=== PATIENT | female | born 1935 | race Caucasian/White ===

== ENCOUNTER 2018-08-08 10:08 | Emergency (ER) | payer MEDICARE, BC ==
[2018-08-08] MEDS ORDERED: IPRATROPIUM-ALBUTEROL 3 ML NEB INHALATION STA (10:53)
--- NOTE | 2018-08-08 10:54 | ED ---
General Adult HPI - General Chief complaint: Shortness of Breath Stated complaint: PRINCE COLMENARES Time Seen by Provider: 08/08/18 10:39 Source: patient Mode of arrival: wheelchair Limitations: no limitations - History of Present Illness Initial comments: Dictation was produced using [employer] dictation software. please excuse any grammatical, word or spelling errors. Chief Complaint: 83-year-old female past medical history diabetes, dyslipidemia , thyroid disorder, unspecified congenital cardiac disease presents with difficulty breathing. History of Present Illness: Patient is a 83-year-old female presents chief complaint of difficulty in breathing. She states that she has been coughing and has been short of breath for the last several weeks. She lives at a facility were one of her neighbors is a nurse. She had that neighbor listened to her lungs. She was told to come to the emergency department by her neighbor because of positive lung auscultatory sounds. Patient denies any history of asthma or COPD. She has seen a probate judge who told her that she had early evidence of congestive heart failure. Patient states that lying flat causes her shortness of breath to acutely worsened. She denies any lower extremity swelling or edema. Patient reports that she sleeps sitting up however this is not secondary to dyspnea but secondary to lower back issues. Patient states she has not had any constitutional symptoms. She does report that she does have a productive cough of clear sputum. She does report having had an ultrasound of her heart and she reports having thing never been told that she has overt congestive heart failure. The ROS documented in this emergency department record has been reviewed and confirmed by me. Those systems with pertinent positive or negative responses have been documented in the HPI. All other systems are other negative and/or noncontributory. PHYSICAL EXAM: General Impression: Alert and oriented x3, not in acute distress HEENT: Normocephalic atraumatic, extra-ocular movements intact, pupils equal and reactive to light bilaterally, mucous membranes moist. Cardiovascular: Heart regular rate and rhythm, S1&S2 audible, no murmurs, rubs or gallops Chest: Bilateral lung wheezing Abdomen: Bowel sounds present, abdomen soft, non-tender, non-distended, no organomegaly Musculoskeletal: Pulses present and equal in all extremities, no peripheral edema, externally rotated bilateral lower extremities Motor: no focal deficits noted Neurological: CN II-XII grossly intact, no focal motor or sensory deficits noted Skin: Intact with no visualized rashes Psych: Normal affect and mood ED course: 83 yOld female with chief complaint of dyspnea for several weeks. She was told to come to the emergency department today by a neighbor who is allegedly a nurse after she was briefly examined by that individual. She is told that she has some crackling and wheezing by that vital signs upon arrival are within acceptable limits. [id number]-[id number] bedside ultrasound does not show any signs of pulmonary edema. Chart review did not show any evaluation by cardiology or echocardiogram.Laboratory evaluation obtained. CBC, coag panel, metabolic panel is unremarkable. Cardiac enzymes negative. BNP peptide is negative. Chest x-ray shows no acute processes. Patient given a DuoNeb treatment and IV steroids. Patient reevaluated after breathing treatment with improvement of symptoms. Patient clinical presentation is consistent with bronchitis. Patient be given prescription for albuterol inhaler, and Zithromax pack. She is advised to follow-up with primary care physician upon discharge. Patient told to return to the emergency Department with any worsening symptoms especially worsening dyspnea, fevers, lethargy. Patient understandable and agreeable to plan. EKG interpretation: Ventricular rate 90, normal sinus rhythm, MD interval 156, QRS 86, QTC 479. No MD prolongation, no QTC prolongation, no ST or T-wave changes noted. Overall, this EKG is unremarkable - Related Data Home Medications Medication Instructions Recorded Confirmed Furosemide [Lasix] 40 mg PO DAILY 01/21/16 08/08/18 Metoprolol Succinate [Toprol XL] 25 mg PO DAILY 01/21/16 08/08/18 Cough Syrup 10 - 20 ml PO DAILY PRN 08/08/18 08/08/18 Levothyroxine Sodium [Synthroid] 150 mcg PO DAILY 08/08/18 08/08/18 traMADol HCL [Ultram] 50 mg PO DAILY 08/08/18 08/08/18 Previous Rx's Medication Instructions Recorded Albuterol Inhaler [Ventolin Hfa 1 - 2 puff INHALATION RT-Q6H PRN 08/08/18 Inhaler] #1 inhaler Azithromycin [Zithromax Z-pack] 0 mg PO DIRECTED #6 tab 08/08/18 Allergies Allergy/AdvReac Type Severity Reaction Status Date / Time aspirin Allergy Unknown Verified 08/08/18 10:34 codeine Allergy Nausea Verified 08/08/18 10:34 latex Allergy Unknown Verified 08/08/18 10:37 meperidine HCl [From Demerol] Allergy Rash/Hives Verified 08/08/18 10:34 morphine Allergy Unknown Verified 08/08/18 10:34 Sulfa (Sulfonamide Allergy Rash/Hives Verified 08/08/18 10:34 Antibiotics) Review of Systems ROS Statement: Those systems with pertinent positive or pertinent negative responses have been documented in the HPI. ROS Other: All systems not noted in ROS Statement are negative. 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 Date of last positivie culture/infection: 2002 MDRO Source:: LEFT FOOT,LEFT SHOULDER, RIGHT HIP Past Surgical History: Appendectomy, Cholecystectomy, Hysterectomy, Joint Replacement, Orthopedic Surgery, Tonsillectomy Additional Past Surgical History / Comment(s): right hip replacement, hysterectomy, cholecystectomy, appendectomy Past Psychological History: No Psychological Hx Reported Smoking Status: Never smoker Past Alcohol Use History: None Reported Past Drug Use History: None Reported - Past Family History Daughter(s) History Unknown: Yes Father Family Medical History: Congestive Heart Failure (CHF), Diabetes Mellitus Additional Family Medical History / Comment(s): obesity General Exam Limitations: no limitations Course Vital Signs 08/08/18 08/08/18 08/08/18 10:10 11:05 11:15 Temperature 97.8 F Pulse Rate 92 85 93 Respiratory 18 Rate Blood Pressure 159/85 O2 Sat by Pulse 95 Oximetry 08/08/18 11:50 Temperature Pulse Rate 90 Respiratory 16 Rate Blood Pressure 137/87 O2 Sat by Pulse 95 Oximetry Medical Decision Making - Lab Data Result diagrams: 08/08/18 10:54 08/08/18 10:54 Lab Results 08/08/18 08/08/18 08/08/18 Range/Units 10:54 10:54 10:54 WBC 8.2 (3.8-10.6) k/uL RBC 5.47 H (3.80-5.40) m/uL Hgb 16.6 H (11.4-16.0) gm/dL Hct 49.6 H (34.0-46.0) % MCV 90.7 (80.0-100.0) fL MCH 30.3 (25.0-35.0) pg MCHC 33.5 (31.0-37.0) g/dL RDW 12.9 (11.5-15.5) % Plt Count 288 (150-450) k/uL Neutrophils % 68 % Lymphocytes % 21 % Monocytes % 6 % Eosinophils % 3 % Basophils % 1 % Neutrophils # 5.6 (1.3-7.7) k/uL Lymphocytes # 1.7 (1.0-4.8) k/uL Monocytes # 0.5 (0-1.0) k/uL Eosinophils # 0.2 (0-0.7) k/uL Basophils # 0.1 (0-0.2) k/uL PT 11.0 (9.0-12.0) sec INR 1.0 (<1.2) APTT 26.8 (22.0-30.0) sec Sodium 139 (137-145) mmol/L Potassium 4.4 (3.5-5.1) mmol/L Chloride 102 (98-107) mmol/L Carbon Dioxide 29 (22-30) mmol/L Anion Gap 8 mmol/L BUN 16 (7-17) mg/dL Creatinine 0.54 (0.52-1.04) mg/dL Est GFR (CKD-EPI)AfAm >90 (>60 ml/min/1.73 sqM) Est GFR (CKD-EPI)NonAf 89 (>60 ml/min/1.73 sqM) Glucose 92 (74-99) mg/dL Calcium 9.3 (8.4-10.2) mg/dL Magnesium 1.7 (1.6-2.3) mg/dL Total Bilirubin 0.7 (0.2-1.3) mg/dL AST 39 H (14-36) U/L ALT 47 (9-52) U/L Alkaline Phosphatase 112 (38-126) U/L Troponin I (0.000-0.034) ng/mL NT-Pro-B Natriuret Pep pg/mL Total Protein 6.9 (6.3-8.2) g/dL Albumin 4.1 (3.5-5.0) g/dL 08/08/18 08/08/18 Range/Units 10:54 10:54 WBC (3.8-10.6) k/uL RBC (3.80-5.40) m/uL Hgb (11.4-16.0) gm/dL Hct (34.0-46.0) % MCV (80.0-100.0) fL MCH (25.0-35.0) pg MCHC (31.0-37.0) g/dL RDW (11.5-15.5) % Plt Count (150-450) k/uL Neutrophils % % Lymphocytes % % Monocytes % % Eosinophils % % Basophils % % Neutrophils # (1.3-7.7) k/uL Lymphocytes # (1.0-4.8) k/uL Monocytes # (0-1.0) k/uL Eosinophils # (0-0.7) k/uL Basophils # (0-0.2) k/uL PT (9.0-12.0) sec INR (<1.2) APTT (22.0-30.0) sec Sodium (137-145) mmol/L Potassium (3.5-5.1) mmol/L Chloride (98-107) mmol/L Carbon Dioxide (22-30) mmol/L Anion Gap mmol/L BUN (7-17) mg/dL Creatinine (0.52-1.04) mg/dL Est GFR (CKD-EPI)AfAm (>60 ml/min/1.73 sqM) Est GFR (CKD-EPI)NonAf (>60 ml/min/1.73 sqM) Glucose (74-99) mg/dL Calcium (8.4-10.2) mg/dL Magnesium (1.6-2.3) mg/dL Total Bilirubin (0.2-1.3) mg/dL AST (14-36) U/L ALT (9-52) U/L Alkaline Phosphatase (38-126) U/L Troponin I <0.012 (0.000-0.034) ng/mL NT-Pro-B Natriuret Pep 89 pg/mL Total Protein (6.3-8.2) g/dL Albumin (3.5-5.0) g/dL Disposition Clinical Impression: Bronchitis Disposition: HOME SELF-CARE Condition: Good Instructions (If sedation given, give patient instructions): Acute Bronchitis ( ED) Prescriptions: Albuterol Inhaler [Ventolin Hfa Inhaler] 1 - 2 puff INHALATION RT-Q6H PRN #1 inhaler PRN Reason: Dyspnea Azithromycin [Zithromax Z-pack] 0 mg PO DIRECTED #6 tab Is patient prescribed a controlled substance at d/c from ED?: No When asked, does pt state using other controlled substances?: No Referrals: Brock Molina MD [Primary Care Provider] - 1-2 days Time of Disposition: 12:29
[2018-08-08 11:06] LABS: Basophils # (A) 0.1 k/uL (0-0.2); Basophils % (A) 1 %; Eosinophils # (A) 0.2 k/uL (0-0.7); Eosinophils % (A) 3 %; HCT 49.6 % (34.0-46.0); HGB 16.6 gm/dL (11.4-16.0); Lymphocytes # (A) 1.7 k/uL (1.0-4.8); Lymphocytes % (A) 21 %; MCH 30.3 pg (25.0-35.0); MCHC 33.5 g/dL (31.0-37.0); MCV 90.7 fL (80.0-100.0); Mean Platelet Volume 7.1; Monocytes # (A) 0.5 k/uL (0-1.0); Monocytes % (A) 6 %; Neutrophils # (A) 5.6 k/uL (1.3-7.7); Neutrophils % (A) 68 %; Platelet Count 288 k/uL (150-450); RBC 5.47 m/uL (3.80-5.40); RDW 12.9 % (11.5-15.5); WBC 8.2 k/uL (3.8-10.6)
[2018-08-08 11:14] LABS: ALT 47 U/L (9-52); AST 39 U/L (14-36); Albumin 4.1 g/dL (3.5-5.0); Alkaline Phosphatase 112 U/L (38-126); Anion Gap 8 mmol/L; Blood Urea Nitrogen 16 mg/dL (7-17); Calcium 9.3 mg/dL (8.4-10.2); Carbon Dioxide 29 mmol/L (22-30); Chloride 102 mmol/L (98-107); Glucose 92 mg/dL (74-99); Magnesium 1.7 mg/dL (1.6-2.3); Potassium 4.4 mmol/L (3.5-5.1); Sodium 139 mmol/L (137-145); Total Bilirubin 0.7 mg/dL (0.2-1.3); Total Protein 6.9 g/dL (6.3-8.2)
[2018-08-08 11:17] LABS: Partial Thromboplastin Time 26.8 sec (22.0-30.0)
--- NOTE | 2018-08-08 11:40 | XR ---
EXAMINATION TYPE: XR chest 2V DATE OF EXAM: 08/08/2018 COMPARISON: NONE HISTORY: Difficulty breathing TECHNIQUE: Frontal and lateral views of the chest are obtained. FINDINGS: There is no focal air space opacity, pleural effusion, or pneumothorax seen. The cardiac silhouette size is upper limits of normal. The osseous structures are intact. Destructive changes are seen of the right glenohumeral joint that may be secondary to extensive arthropathy, post infectious , neurogenic in origin, or posttraumatic. Extensive degenerative changes are seen in the left glenohu meral joint. There is an exaggerated thoracic kyphosis. There is diffuse osseous demineralization. IMPRESSION: No acute cardiopulmonary process.
[2018-08-08] MEDS ORDERED: DEXAMETHASONE SOD PHOSPHATE 10 MG/ML 1 ML VIAL IV STA (12:00)
[2018-08-08 12:35] VITALS: BP 155/83; PULSE 99; RESP 18; TEMP 98
== END 2018-08-08 12:53 | disposition home or self-care (01) ==
LOC: EC 10:08
DX: J40 Bronchitis, not specified as acute or chronic (principal); E03.9 Hypothyroidism, unspecified; M19.90 Unspecified osteoarthritis, unspecified site; I50.9 Heart failure, unspecified; Q24.9 Congenital malformation of heart, unspecified; Z86.14 Personal history of Methicillin resistant Staphylococcus aureus infection; Z96.641 Presence of right artificial hip joint; Z82.49 Family history of ischemic heart disease and other diseases of the circulatory system; Z79.890 Hormone replacement therapy; Z79.891 Long term (current) use of opiate analgesic; Z79.899 Other long term (current) drug therapy; Z88.6 Allergy status to analgesic agent; Z88.5 Allergy status to narcotic agent; Z91.040 Latex allergy status; Z88.2 Allergy status to sulfonamides
CPT/HCPCS: 36415; 94640; 93005; 83880; 80053; 83735; 84484; 85025; 85610; 85730; 71046; 99285; 96374; J1100

== ENCOUNTER → 2019-01-06 | Outpatient (CLI) | payer MEDICARE, BC ==
[2019-01-06 11:44] LABS: African American GFR (CKD) >90 (>60 ml/min/1.73 sqM); Blood Urea Nitrogen 20 mg/dL (7-17)
--- NOTE | 2019-01-06 15:28 | CT ---
EXAMINATION TYPE: CT abdomen pelvis w con DATE OF EXAM: 01/06/2019 COMPARISON: HISTORY: Pain, swelling above right thigh. CT DLP: 2036.5 mGycm Automated exposure control for dose reduction was used. TECHNIQUE: Helical acquisition of images from the lung bases through the pelvis have been completed. CONTRAST: Performed with Oral Contrast and with IV Contrast, patient injected with 100 mL of Isovue M300. FINDINGS: There is some calcification at the root of the aorta, mitral annulus, suspect coronary luis ry calcification. There is an umbilical hernia containing fat. LUNG BASES: No significant abnormality is appreciated. Focal subcentimeter area of increased attenuat ion along the anterior fissure likely benign AORTA: No significant abnormality is appreciated. LIVER/GB: The liver shows low attenuation. Patient is post cholecystectomy. Colonic interposition not ed anterior to the lower portion of the liver. PANCREAS: No significant abnormality is seen. SPLEEN: No significant abnormality is seen. ADRENALS: No significant abnormality is seen. KIDNEYS: Cortical cyst associated with the upper pole the right kidney measures approximately 2.7 cm. Small cortical cysts associated with the left kidney. REPRODUCTIVE ORGANS: No significant abnormality is seen BOWEL: Some colonic wall thickening on axial image 23 is indeterminate, scattered diverticular aguirre e is present especially in the sigmoid colon. FREE AIR: No Free Air visible. ASCITES: None visible. PELVIC ADENOPATHY: None visualized. RETROPERITONEAL ADENOPATHY: No Retroperitoneal Adenopathy visible. URINARY BLADDER: No significant abnormality is seen. OSSEOUS STRUCTURES: Marked distortion is present at the left femoral head with osteoarthritic change, there is resorption of the right femoral head, chronic dislocation, abnormal right acetabulum. Degen erative disc changes are present in the visualized spine. Anterolisthesis grade 1 L4-5, L3-4, retroli sthesis grade 1 L5-S1. IMPRESSION: DIVERTICULOSIS, ABDOMINAL WALL HERNIA, CHRONIC DISTORTION OF THE HIPS. DEGENERATIVE DISC DISEASE AND FACET ARTHROPATHY, THERE MAY BE ASSOCIATED SPINAL STENOSIS. POSSIBLE HEPATIC STEATOSIS. POSTOP CHANGE S. FINDINGS IN THE COLON IS DESCRIBED, DIFFICULT TO EXCLUDE A MUCOSAL LESION
== END ==
LOC: RADCTMAIN 11:09
PROVIDERS: ATTEND Family Medicine
DX: K57.90 Diverticulosis of intestine, part unspecified, without perforation or abscess without bleeding (principal); K42.9 Umbilical hernia without obstruction or gangrene; R93.7 Abnormal findings on diagnostic imaging of other parts of musculoskeletal system; R10.9 Unspecified abdominal pain; Z98.890 Other specified postprocedural states
CPT/HCPCS: 82565; 84520; 74177; 36415; Q9967

== ENCOUNTER → 2019-02-13 | Outpatient (CLI) | payer MEDICARE, BC ==
--- NOTE | 2019-02-13 09:58 | XR ---
EXAMINATION TYPE: XR foot complete LT DATE OF EXAM: 02/13/2019 CLINICAL HISTORY: Left foot pain for one week. Injury one week ago. TECHNIQUE: Frontal, lateral, and oblique images of the left foot are obtained. COMPARISON: Left foot x-ray January 21, 2016 FINDINGS: Demineralization is redemonstrated which is noted to lower radiographic sensitivity. Marked hallux valgus positioning first metatarsophalangeal joint. Additional valgus positioning noted second through fourth toes at metatarsophalangeal joints. There is varus positioning distal fifth to e metatarsal phalangeal joint all redemonstrated. Marked flexion in the toes makes evaluation at this level suboptimal. Moderate narrowing first and second metatarsophalangeal joint with mild to moderat e peripheral spurring is redemonstrated. There is pes planus deformity with moderate to severe spurring and narrowing hindfoot and midfoot lev els. Talus bone is destroyed raising concern for Charcot-type arthropathy. Old healed fracture distal fibular diaphysis is present. No acute fracture or dislocation is seen. IMPRESSION: As above. No significant change from prior study
--- NOTE | 2019-02-13 10:38 | XR ---
EXAMINATION TYPE: XR Hip Bilateral and AP pelvis DATE OF EXAM: 02/13/2019 COMPARISON: CT abdomen and pelvis January 06, 2019 HISTORY: Pain after injury one week ago. TECHNIQUE: A single AP view of the pelvis is obtained. Two views of the bilateral hips are obtained. FINDINGS: Demineralization is present. Sacroiliac joints are maintained. Pubic symphysis is intact. T here is chronic deformity and dislocation right hip. Left hip shows evidence of old healed fracture s ubcapital level with advanced degenerative change as there is extensive subchondral cystic change and narrowing. IMPRESSION: As above, no significant change from recent CT. No acute fracture is evident.
== END | disposition home or self-care (01) ==
LOC: RADXRMAIN 09:21
PROVIDERS: ATTEND Physician Assistant
DX: S73.004A Unspecified dislocation of right hip, initial encounter (principal); M16.0 Bilateral primary osteoarthritis of hip; M21.852 Other specified acquired deformities of left thigh; M21.851 Other specified acquired deformities of right thigh
CPT/HCPCS: 73521

== ENCOUNTER → 2019-05-22 | Outpatient (CLI) | payer MEDICARE, BC ==
--- NOTE | 2019-05-22 10:16 | XR ---
EXAMINATION TYPE: XR shoulder complete RT DATE OF EXAM: 05/22/2019 CLINICAL HISTORY: Right shoulder pain TECHNIQUE: Three views of the right shoulder are obtained. COMPARISON: None. FINDINGS: There is no extensive arthropathy of the right shoulder with [id number] articulation and protuberant osteophyte change. There is narrowing of the acromioclavicular interval and coracoacromi al interval. Osteophytes extend into the axillary recess. No gross evidence of acute displaced fractu re. Diffuse osseous demineralization. IMPRESSION: 1. Extensive arthropathy of the right shoulder that may be degenerative, posttraumatic, or postinfect ious. Protuberant osteophytes extend and axillary recess and could create axillary nerve impingement. [id number] articulation is seen in the glenohumeral joint. 2. Diffuse osseous demineralization 3. Mild acromio clavicular arthropathy.
== END | disposition home or self-care (01) ==
LOC: RADXRMAIN 09:35
PROVIDERS: ATTEND Physician Assistant
DX: M19.011 Primary osteoarthritis, right shoulder (principal); M81.8 Other osteoporosis without current pathological fracture

== ENCOUNTER 2020-09-15 11:42 | Inpatient (IN) | payer MEDICARE, BC ==
--- NOTE | 2020-09-15 13:54 | XR ---
EXAMINATION TYPE: XR chest 2V DATE OF EXAM: 09/15/2020 COMPARISON: 08/08/2018 INDICATION: Shortness of breath x1 week TECHNIQUE: Frontal and lateral views of the chest are obtained. FINDINGS: The heart size is normal. There is increased AP thoracic diameter. The pulmonary vasculature is normal. The lungs are clear. Degenerative changes are at the right shoulder IMPRESSION: 1. No acute pulmonary process.
[2020-09-15] MEDS ORDERED: ONDANSETRON 4 MG/2 ML VIAL IVP STA (15:54)
[2020-09-15] MEDS ORDERED: SODIUM CHLORIDE 0.9% 500 ML 500 ML IV STA (15:54)
--- NOTE | 2020-09-15 16:13 | ED ---
Weakness HPI - General Chief complaint: Weakness Stated complaint: covid vaccine reaction, weakness, congestion Source: patient, family Mode of arrival: wheelchair Limitations: no limitations - History of Present Illness Initial comments: Patient is an 85-year-old female with past nuchal history of diabetes, hypertension presents emergency Department with reported generalized weakness and shortness of breath. Patient received her second Covid vaccination on the and states that she became sick afterwards. Reports to weakness, chills and body aches. Patient did have close contacts with similar symptoms which did test positive for Covid. Patient states that she is wheelchair-bound. He had difficulty transferring. Stiff fevers with poor appetite. Admits to nausea. No chest pain. No other alleviating, precipitating or modifying factors - Related Data Home Medications Medication Instructions Recorded Confirmed Metoprolol Succinate [Toprol XL] 25 mg PO DAILY 01/21/16 09/15/20 Cholecalciferol [Vitamin D3 (25 25 mcg PO DAILY 09/15/20 09/15/20 Mcg = 1000 Iu)] Ketoconazole 2% Cream [Nizoral 2%] 1 applic TOPICAL DAILY 09/15/20 09/15/20 Levothyroxine Sodium [Synthroid] 125 mcg PO DAILY 09/15/20 09/15/20 Previous Rx's Medication Instructions Recorded Acetaminophen Tab [Tylenol] 650 mg PO Q6HR PRN #20 tab 09/24/20 Ascorbic Acid [Vitamin C] 500 mg PO BID #20 tab 09/24/20 Benzocaine/Menthol Lozeng [Cepacol 1 each MUCOUS MEM Q4HR PRN #30 09/24/20 lozenge] lozenge Benzonatate [Tessalon Perles] 100 mg PO TID #20 cap 09/24/20 Famotidine [Pepcid] 20 mg PO BID #30 tab 09/24/20 Gabapentin [Neurontin] 100 mg PO TID #9 cap 09/24/20 Losartan [Cozaar] 25 mg PO DAILY #30 tab 09/24/20 Zinc Sulfate [Orazinc] 220 mg PO DAILY 10 Days #10 cap 09/24/20 traMADol HCL [Ultram] 50 mg PO Q6H PRN 3 Days #12 tab 09/24/20 Allergies Allergy/AdvReac Type Severity Reaction Status Date / Time aspirin Allergy Unknown Verified 09/15/20 19:44 codeine Allergy Nausea Verified 09/15/20 19:44 latex Allergy Unknown Verified 09/15/20 19:44 meperidine HCl [From Demerol] Allergy Rash/Hives Verified 09/15/20 19:44 morphine Allergy Unknown Verified 09/15/20 19:44 Nitrate Analogues Allergy Rash/Hives Verified 09/15/20 19:44 Sulfa (Sulfonamide Allergy Rash/Hives Verified 09/15/20 19:44 Antibiotics) tomato Allergy Rash/Hives Verified 09/15/20 19:44 Review of Systems ROS Statement: Those systems with pertinent positive or pertinent negative responses have been documented in the HPI. ROS Other: All systems not noted in ROS Statement are negative. 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 Date of last positivie culture/infection: 2002 MDRO Source:: LEFT FOOT,LEFT SHOULDER, RIGHT HIP Past Surgical History: Appendectomy, Cholecystectomy, Hysterectomy, Joint Replacement, Orthopedic Surgery, Tonsillectomy Additional Past Surgical History / Comment(s): right hip replacement, hysterectomy, cholecystectomy, appendectomy Past Psychological History: No Psychological Hx Reported Smoking Status: Never smoker Past Alcohol Use History: None Reported Past Drug Use History: None Reported - Past Family History Daughter(s) History Unknown: Yes Father Family Medical History: Congestive Heart Failure (CHF), Diabetes Mellitus Additional Family Medical History / Comment(s): obesity General Exam Limitations: no limitations General appearance: alert, in no apparent distress Head exam: Present: atraumatic, normocephalic, normal inspection Eye exam: Present: normal appearance, PERRL, EOMI. Absent: scleral icterus, conjunctival injection, periorbital swelling ENT exam: Present: normal exam, mucous membranes moist Neck exam: Present: normal inspection. Absent: tenderness, meningismus, lymphadenopathy Respiratory exam: Present: normal lung sounds bilaterally, accessory muscle use. Absent: respiratory distress, wheezes, rales, rhonchi, stridor Cardiovascular Exam: Present: regular rate, tachycardia, normal heart sounds. Absent: systolic murmur, diastolic murmur, rubs, gallop, clicks GI/Abdominal exam: Present: soft, normal bowel sounds. Absent: distended, tenderness, guarding, rebound, rigid Extremities exam: Present: normal inspection, full ROM, normal capillary refill. Absent: tenderness, pedal edema, joint swelling, calf tenderness Back exam: Present: normal inspection Neurological exam: Present: alert, oriented X3, CN II-XII intact Psychiatric exam: Present: normal affect, normal mood Skin exam: Present: warm, dry, intact, normal color. Absent: rash Course Vital Signs 09/15/20 09/15/20 09/15/20 12:58 15:15 20:51 Temperature 98.7 F Pulse Rate 104 H 100 Pulse Rate [ 108 H Pulse Oximetery ] Respiratory 22 20 Rate Blood Pressure 143/95 158/86 O2 Sat by Pulse 94 L 96 Oximetry EKG Findings - EKG Comments: EKG Findings:: EKG demonstrates sinus tachycardia with a ventricular rate of 106. ME interval 158. QRS 82. QTC of 462. No acute ST segment elevations or depressions Medical Decision Making - Medical Decision Making Upon arrival the patient is placed into room 8. A thorough history and physical exam is performed. Patient is generally weak with conversational dyspnea. Patient is disheveled, with strong smell of urine. States that she cannot care for herself at home in her weakened state. IV is established and the patient was given a 500 bolus of normal saline followed by 75 mL per hour. She is given Zofran for nausea. Laboratory studies are conducted. Patient does test positive for Covid at this time. Chest x-ray demonstrates no acute cardiopulmonary process. Results are discussed with the patient. She states that she is too weak to go home. She is urinating on herself that she cannot care for herself. I did call discuss the case with Tiffany from [facility] who agree to admit the patient. Patient is currently awaiting a bed on the floor - Lab Data Result diagrams: 09/24/20 08:33 09/24/20 08:33 Lab Results 09/15/20 09/15/20 09/15/20 Range/Units 13:07 15:57 15:57 WBC 4.1 (3.8-10.6) k/uL RBC 5.46 H (3.80-5.40) m/uL Hgb 17.0 H (11.4-16.0) gm/dL Hct 48.9 H (34.0-46.0) % MCV 89.6 (80.0-100.0) fL MCH 31.1 (25.0-35.0) pg MCHC 34.7 (31.0-37.0) g/dL RDW 12.7 (11.5-15.5) % Plt Count 192 (150-450) k/uL MPV 8.1 Neutrophils % 58 % Lymphocytes % 26 % Monocytes % 12 % Eosinophils % 0 % Basophils % 2 % Neutrophils # 2.4 (1.3-7.7) k/uL Lymphocytes # 1.1 (1.0-4.8) k/uL Monocytes # 0.5 (0-1.0) k/uL Eosinophils # 0.0 (0-0.7) k/uL Basophils # 0.1 (0-0.2) k/uL PT 12.5 H (9.0-12.0) sec INR 1.2 H (<1.2) APTT 28.5 (22.0-30.0) sec D-Dimer 0.94 H (<0.60) mg/L FEU Sodium Potassium Chloride Carbon Dioxide Anion Gap BUN Creatinine Est GFR (CKD-EPI)AfAm Est GFR (CKD-EPI)NonAf Glucose (74-99) mg/dL Calcium Magnesium Total Bilirubin AST ALT Alkaline Phosphatase Troponin I (0.000-0.034) ng/mL NT-Pro-B Natriuret Pep pg/mL Total Protein Albumin Urine Color Urine Appearance (Clear) Urine pH (5.0-8.0) Ur Specific [place] (1.001-1.035) Urine Protein (Negative) Urine Glucose (UA) (Negative) Urine Ketones (Negative) Urine Blood (Negative) Urine Nitrite (Negative) Urine Bilirubin (Negative) Urine Urobilinogen (<2.0) mg/dL Ur Leukocyte Esterase (Negative) Urine RBC (0-5) /hpf Urine WBC (0-5) /hpf Ur Squamous Epith Cells (0-4) /hpf Urine Mucus (None) /hpf Coronavirus (PCR) Detected A (Not Detectd) 09/15/20 09/15/20 09/15/20 Range/Units 15:57 15:57 15:57 WBC (3.8-10.6) k/uL RBC (3.80-5.40) m/uL Hgb (11.4-16.0) gm/dL Hct (34.0-46.0) % MCV (80.0-100.0) fL MCH (25.0-35.0) pg MCHC (31.0-37.0) g/dL RDW (11.5-15.5) % Plt Count (150-450) k/uL MPV Neutrophils % % Lymphocytes % % Monocytes % % Eosinophils % % Basophils % % Neutrophils # (1.3-7.7) k/uL Lymphocytes # (1.0-4.8) k/uL Monocytes # (0-1.0) k/uL Eosinophils # (0-0.7) k/uL Basophils # (0-0.2) k/uL PT (9.0-12.0) sec INR (<1.2) APTT (22.0-30.0) sec D-Dimer (<0.60) mg/L FEU Sodium Not Reportable Potassium Not Reportable Chloride Not Reportable Carbon Dioxide Not Reportable Anion Gap Not Reportable BUN Not Reportable Creatinine Not Reportable Est GFR (CKD-EPI)AfAm Not Reportable Est GFR (CKD-EPI)NonAf Not Reportable Glucose (74-99) mg/dL Calcium Not Reportable Magnesium Not Reportable Total Bilirubin Not Reportable AST Not Reportable ALT Not Reportable Alkaline Phosphatase Not Reportable Troponin I <0.012 (0.000-0.034) ng/mL NT-Pro-B Natriuret Pep 188 pg/mL Total Protein Not Reportable Albumin Not Reportable Urine Color Urine Appearance (Clear) Urine pH (5.0-8.0) Ur Specific [place] (1.001-1.035) Urine Protein (Negative) Urine Glucose (UA) (Negative) Urine Ketones (Negative) Urine Blood (Negative) Urine Nitrite (Negative) Urine Bilirubin (Negative) Urine Urobilinogen (<2.0) mg/dL Ur Leukocyte Esterase (Negative) Urine RBC (0-5) /hpf Urine WBC (0-5) /hpf Ur Squamous Epith Cells (0-4) /hpf Urine Mucus (None) /hpf Coronavirus (PCR) (Not Detectd) 09/15/20 09/15/20 09/16/20 Range/Units 18:13 22:32 06:47 WBC 2.6 L (3.8-10.6) k/uL RBC 5.32 (3.80-5.40) m/uL Hgb 16.6 H (11.4-16.0) gm/dL Hct 48.2 H (34.0-46.0) % MCV 90.7 (80.0-100.0) fL MCH 31.3 (25.0-35.0) pg MCHC 34.5 (31.0-37.0) g/dL RDW 12.8 (11.5-15.5) % Plt Count 165 (150-450) k/uL MPV 7.4 Neutrophils % 62 % Lymphocytes % 33 % Monocytes % 3 % Eosinophils % 0 % Basophils % 0 % Neutrophils # 1.6 (1.3-7.7) k/uL Lymphocytes # 0.8 L (1.0-4.8) k/uL Monocytes # 0.1 (0-1.0) k/uL Eosinophils # 0.0 (0-0.7) k/uL Basophils # 0.0 (0-0.2) k/uL PT (9.0-12.0) sec INR (<1.2) APTT (22.0-30.0) sec D-Dimer (<0.60) mg/L FEU Sodium 135 L Potassium 3.8 Chloride 96 L Carbon Dioxide 30 Anion Gap 9 BUN 15 Creatinine 0.55 Est GFR (CKD-EPI)AfAm >90 Est GFR (CKD-EPI)NonAf 87 Glucose 102 H (74-99) mg/dL Calcium 8.9 Magnesium 1.7 Total Bilirubin 0.6 AST 33 ALT 21 Alkaline Phosphatase 95 Troponin I (0.000-0.034) ng/mL NT-Pro-B Natriuret Pep pg/mL Total Protein 6.4 Albumin 3.9 Urine Color Yellow Urine Appearance Cloudy H (Clear) Urine pH 5.5 (5.0-8.0) Ur Specific [place] 1.021 (1.001-1.035) Urine Protein 1+ H (Negative) Urine Glucose (UA) Negative (Negative) Urine Ketones Trace H (Negative) Urine Blood Trace H (Negative) Urine Nitrite Negative (Negative) Urine Bilirubin Negative (Negative) Urine Urobilinogen <2.0 (<2.0) mg/dL Ur Leukocyte Esterase Negative (Negative) Urine RBC 2 (0-5) /hpf Urine WBC 1 (0-5) /hpf Ur Squamous Epith Cells 1 (0-4) /hpf Urine Mucus Occasional H (None) /hpf Coronavirus (PCR) (Not Detectd) 09/16/20 Range/Units 06:47 WBC (3.8-10.6) k/uL RBC (3.80-5.40) m/uL Hgb (11.4-16.0) gm/dL Hct (34.0-46.0) % MCV (80.0-100.0) fL MCH (25.0-35.0) pg MCHC (31.0-37.0) g/dL RDW (11.5-15.5) % Plt Count (150-450) k/uL MPV Neutrophils % % Lymphocytes % % Monocytes % % Eosinophils % % Basophils % % Neutrophils # (1.3-7.7) k/uL Lymphocytes # (1.0-4.8) k/uL Monocytes # (0-1.0) k/uL Eosinophils # (0-0.7) k/uL Basophils # (0-0.2) k/uL PT (9.0-12.0) sec INR (<1.2) APTT (22.0-30.0) sec D-Dimer (<0.60) mg/L FEU Sodium 135 L Potassium 4.0 Chloride 97 L Carbon Dioxide 30 Anion Gap 8 BUN 15 Creatinine 0.59 Est GFR (CKD-EPI)AfAm >90 Est GFR (CKD-EPI)NonAf 85 Glucose 172 H (74-99) mg/dL Calcium 8.3 L Magnesium Total Bilirubin AST ALT Alkaline Phosphatase Troponin I (0.000-0.034) ng/mL NT-Pro-B Natriuret Pep pg/mL Total Protein Albumin Urine Color Urine Appearance (Clear) Urine pH (5.0-8.0) Ur Specific [place] (1.001-1.035) Urine Protein (Negative) Urine Glucose (UA) (Negative) Urine Ketones (Negative) Urine Blood (Negative) Urine Nitrite (Negative) Urine Bilirubin (Negative) Urine Urobilinogen (<2.0) mg/dL Ur Leukocyte Esterase (Negative) Urine RBC (0-5) /hpf Urine WBC (0-5) /hpf Ur Squamous Epith Cells (0-4) /hpf Urine Mucus (None) /hpf Coronavirus (PCR) (Not Detectd) Disposition Clinical Impression: Weakness, COVID-19, Tachycardia Disposition: ADMITTED IP TO THIS HOSP Condition: Stable Is patient prescribed a controlled substance at d/c from ED?: No Decision to Admit Reason: Admit from EC Decision Date: 09/15/20 Decision Time: 19:45
[2020-09-15 16:14] LABS: Basophils # (A) 0.1 k/uL (0-0.2); Basophils % (A) 2 %; Eosinophils % (A) 0 %; HCT 48.9 % (34.0-46.0); Lymphocytes # (A) 1.1 k/uL (1.0-4.8); Lymphocytes % (A) 26 %; MCH 31.1 pg (25.0-35.0); MCHC 34.7 g/dL (31.0-37.0); MCV 89.6 fL (80.0-100.0); Mean Platelet Volume 8.1; Monocytes # (A) 0.5 k/uL (0-1.0); Monocytes % (A) 12 %; Neutrophils # (A) 2.4 k/uL (1.3-7.7); Neutrophils % (A) 58 %; Platelet Count 192 k/uL (150-450); RBC 5.46 m/uL (3.80-5.40); RDW 12.7 % (11.5-15.5); WBC 4.1 k/uL (3.8-10.6)
[2020-09-15 17:04] LABS: INR 1.2 (<1.2); Partial Thromboplastin Time 28.5 sec (22.0-30.0); Prothrombin Time 12.5 sec (9.0-12.0)
[2020-09-15 18:41] LABS: ALT 21 U/L (4-34); AST 33 U/L (14-36); African American GFR (CKD) >90 (>60 ml/min/1.73 sqM); Albumin 3.9 g/dL (3.5-5.0); Alkaline Phosphatase 95 U/L (38-126); Anion Gap 9 mmol/L; Blood Urea Nitrogen 15 mg/dL (7-17); Calcium 8.9 mg/dL (8.4-10.2); Carbon Dioxide 30 mmol/L (22-30); Chloride 96 mmol/L (98-107); Glucose 102 mg/dL (74-99); Magnesium 1.7 mg/dL (1.6-2.3); Non-African American GFR(CKD) 87 (>60 ml/min/1.73 sqM); Potassium 3.8 mmol/L (3.5-5.1); Sodium 135 mmol/L (137-145); Total Bilirubin 0.6 mg/dL (0.2-1.3); Total Protein 6.4 g/dL (6.3-8.2)
[2020-09-15] MEDS ORDERED: NALOXONE 0.4 MG/ML 1 ML VIAL IV PRN (19:45)
[2020-09-15] MEDS ORDERED: ONDANSETRON 4 MG/2 ML VIAL IVP PRN (19:45)
[2020-09-15] MEDS: DEXAMETHASONE SOD PHOSPHATE 10 MG/ML 1 ML VIAL IV SCH (22:21)
[2020-09-15] MEDS: SODIUM CHLORIDE 0.9% 1,000 ML IV SCH (22:21)
[2020-09-15] MEDS: GABAPENTIN 100 MG CAP PO SCH (22:22)
[2020-09-15] MEDS: traMADol 50 MG TAB PO PRN (22:22)
[2020-09-15 22:47] LABS: Appearance,Urine Cloudy (Clear); Bilirubin,Urine Negative (Negative); Blood,Urine Trace (Negative); Color,Urine Yellow; Glucose,Urine (UA) Negative (Negative); Ketones,Urine Trace (Negative); Leukocyte Esterase,Urine Negative (Negative); Mucus,Urine Occasional /hpf; Nitrite,Urine Negative (Negative); PH, Urine 5.5 (5.0-8.0); Protein,Urine 1+ (Negative); RBC,Urine 2 /hpf (0-5); Specific Gravity,Urine 1.021 (1.001-1.035); Squamous Epithelial Cell,Urine 1 /hpf (0-4); Urobilinogen,Urine <2.0 mg/dL (<2.0); WBC,Urine 1 /hpf (0-5)
[2020-09-16] MEDS: ACETAMINOPHEN TAB 325 MG TAB PO PRN ×2 (00:17→21:53)
[2020-09-16 07:29] LABS: Basophils % (A) 0 %; Eosinophils % (A) 0 %; HCT 48.2 % (34.0-46.0); HGB 16.6 gm/dL (11.4-16.0); Lymphocytes # (A) 0.8 k/uL (1.0-4.8); Lymphocytes % (A) 33 %; MCH 31.3 pg (25.0-35.0); MCHC 34.5 g/dL (31.0-37.0); MCV 90.7 fL (80.0-100.0); Mean Platelet Volume 7.4; Monocytes # (A) 0.1 k/uL (0-1.0); Monocytes % (A) 3 %; Neutrophils # (A) 1.6 k/uL (1.3-7.7); Neutrophils % (A) 62 %; Platelet Count 165 k/uL (150-450); RBC 5.32 m/uL (3.80-5.40); RDW 12.8 % (11.5-15.5); WBC 2.6 k/uL (3.8-10.6)
[2020-09-16 08:00] LABS: African American GFR (CKD) >90 (>60 ml/min/1.73 sqM); Anion Gap 8 mmol/L; Blood Urea Nitrogen 15 mg/dL (7-17); Calcium 8.3 mg/dL (8.4-10.2); Carbon Dioxide 30 mmol/L (22-30); Chloride 97 mmol/L (98-107); Glucose 172 mg/dL (74-99); Non-African American GFR(CKD) 85 (>60 ml/min/1.73 sqM); Sodium 135 mmol/L (137-145)
[2020-09-16] MEDS: METOPROLOL SUCCINATE (ER) 25 MG TAB.ER.24H PO SCH (08:17)
[2020-09-16] MEDS: LEVOTHYROXINE 125 MCG TAB PO SCH (08:17)
[2020-09-16] MEDS: CHOLECALCIFEROL 25 MCG (1000 IU) TABLET PO SCH (08:17)
[2020-09-16] MEDS: GABAPENTIN 100 MG CAP PO SCH ×3 (08:17→21:53)
[2020-09-16] MEDS: CLOTRIMAZOLE 1% CREAM 30 GM TUBE TOPICAL SCH (09:53)
--- NOTE | 2020-09-16 12:33 | P.HPIM ---
History of Present Illness 85-year-old female came in with complaints of for generalized weakness and shortness of breath and cough. Patient had first Covid Vaccination and 06 of June. Patient became shortly sick after that patient appears to have been exposed even before her vaccination. Patient has some weakness chills and body aches. 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 Patient had fever here. Patient is found to have Covid 19. Patient is presently on 2 L of oxygen mildly elevated d-dimer of 0.94 patient is presently on Decadron. Fractures disease was consulted. Review of Systems REVIEW OF SYSTEMS: CONSTITUTIONAL: As mentioned in HPI HEENT: No recent visual problems or hearing problems. Denied any sore throat. CARDIOVASCULAR: No chest pain, orthopnea, PND, no palpitations, no syncope. PULMONARY: As mentioned in HPI GASTROINTESTINAL: No diarrhea, no nausea, no vomiting, no abdominal pain. NEUROLOGICAL: No headaches, no weakness, no numbness. HEMATOLOGICAL: Denies any bleeding or petechiae. GENITOURINARY: Denies any burning micturition, frequency, or urgency. MUSCULOSKELETAL/RHEUMATOLOGICAL: Denies any joint pain, swelling, or any muscle pain. ENDOCRINE: Denies any polyuria or polydipsia. The rest of the 14-point review of systems is negative. Past Medical History Past Medical History: Blood Disorder, Heart Failure, Diabetes Mellitus, Hyperlipidemia, Thyroid Disorder Additional Past Medical History / Comment(s): diabetes mellitus, hyperlipidemia, hypothyroidism, osteoarthritis, congestion heart failure, umbilical hernia, Jordana Charcot syndrome History of Any Multi-Drug Resistant Organisms: MRSA Date of last positivie culture/infection: 2002 MDRO Source:: LEFT FOOT,LEFT SHOULDER, RIGHT HIP Past Surgical History: Appendectomy, Cholecystectomy, Hysterectomy, Joint Replacement, Orthopedic Surgery, Tonsillectomy Additional Past Surgical History / Comment(s): right hip replacement, hysterectomy, cholecystectomy, appendectomy Past Anesthesia/Blood Transfusion Reactions: No Reported Reaction Past Psychological History: No Psychological Hx Reported Additional Psychological History / Comment(s): lives independently. Able to around by her powered wheelchair. No tobacco or alcohol use. 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 No experience. No international travel. No animal exposures. Up-to-date on her vaccines Smoking Status: Never smoker Past Alcohol Use History: None Reported Past Drug Use History: None Reported - Past Family History Daughter(s) History Unknown: Yes Father Family Medical History: Congestive Heart Failure (CHF), Diabetes Mellitus Additional Family Medical History / Comment(s): obesity Medications and Allergies Home Medications Medication Instructions Recorded Confirmed Type Metoprolol Succinate [Toprol XL] 25 mg PO DAILY 01/21/16 09/15/20 History traMADol HCL [Ultram] 50 mg PO Q6H PRN 08/08/18 09/15/20 History Cholecalciferol [Vitamin D3 (25 25 mcg PO DAILY 09/15/20 09/15/20 History Mcg = 1000 Iu)] Gabapentin [Neurontin] 100 mg PO TID 09/15/20 09/15/20 History Ketoconazole 2% Cream [Nizoral 2%] 1 applic TOPICAL DAILY 09/15/20 09/15/20 History Levothyroxine Sodium [Synthroid] 125 mcg PO DAILY 09/15/20 09/15/20 History Allergies Allergy/AdvReac Type Severity Reaction Status Date / Time aspirin Allergy Unknown Verified 09/15/20 19:44 codeine Allergy Nausea Verified 09/15/20 19:44 latex Allergy Unknown Verified 09/15/20 19:44 meperidine HCl [From Demerol] Allergy Rash/Hives Verified 09/15/20 19:44 morphine Allergy Unknown Verified 09/15/20 19:44 Nitrate Analogues Allergy Rash/Hives Verified 09/15/20 19:44 Sulfa (Sulfonamide Allergy Rash/Hives Verified 09/15/20 19:44 Antibiotics) tomato Allergy Rash/Hives Verified 09/15/20 19:44 Physical Exam Vitals: Vital Signs Temp Pulse Pulse Resp BP BP Pulse Ox 09/16/20 07:00 97.7 F 72 16 133/82 96 09/16/20 01:45 95 09/16/20 01:38 98.6 F 22 126/75 86 L 09/16/20 00:17 100.3 F H 09/15/20 22:05 110 H 09/15/20 21:37 98.7 F 108 H 22 181/84 93 L 09/15/20 20:51 100 20 158/86 96 09/15/20 15:15 108 H 09/15/20 12:58 98.7 F 104 H 22 143/95 94 L Intake and Output 09/15/20 09/16/20 09/16/20 22:59 06:59 14:59 Other: Voiding Method Bedpan Bedpan # Voids 1 # Bowel Movements 1 Weight 92.986 kg PHYSICAL EXAMINATION: GENERAL: The patient is alert and oriented x3, not in any acute distress. Well developed, well nourished. HEENT: Pupils are round and equally reacting to light. EOMI. No scleral icterus. No conjunctival pallor. Normocephalic, atraumatic. No pharyngeal erythema. No thyromegaly. CARDIOVASCULAR: S1 and S2 present. No murmurs, rubs, or gallops. PULMONARY: Chest is clear to auscultation, no wheezing or crackles. ABDOMEN: Soft, nontender, nondistended, normoactive bowel sounds. No palpable organomegaly. MUSCULOSKELETAL: No joint swelling patient has multiple deformities consistent with rheumatoid arthritis in both hands and also deformities in both foot EXTREMITIES: No cyanosis, clubbing, or pedal edema. NEUROLOGICAL: Gross neurological examination did not reveal any focal deficits. SKIN: No rashes. Results CBC & Chem 7: 09/16/20 06:47 09/16/20 06:47 Labs: Abnormal Lab Results - Last 24 Hours (Table) 09/15/20 09/15/20 09/15/20 Range/Units 13:07 15:57 15:57 WBC (3.8-10.6) k/uL RBC 5.46 H (3.80-5.40) m/uL Hgb 17.0 H (11.4-16.0) gm/dL Hct 48.9 H (34.0-46.0) % Lymphocytes # (1.0-4.8) k/uL PT 12.5 H (9.0-12.0) sec INR 1.2 H (<1.2) D-Dimer 0.94 H (<0.60) mg/L FEU Sodium (137-145) mmol/L Chloride (98-107) mmol/L Glucose (74-99) mg/dL Calcium (8.4-10.2) mg/dL Urine Appearance (Clear) Urine Protein (Negative) Urine Ketones (Negative) Urine Blood (Negative) Urine Mucus (None) /hpf Coronavirus (PCR) Detected A (Not Detectd) 09/15/20 09/15/20 09/16/20 Range/Units 18:13 22:32 06:47 WBC 2.6 L (3.8-10.6) k/uL RBC (3.80-5.40) m/uL Hgb 16.6 H (11.4-16.0) gm/dL Hct 48.2 H (34.0-46.0) % Lymphocytes # 0.8 L (1.0-4.8) k/uL PT (9.0-12.0) sec INR (<1.2) D-Dimer (<0.60) mg/L FEU Sodium 135 L (137-145) mmol/L Chloride 96 L (98-107) mmol/L Glucose 102 H (74-99) mg/dL Calcium (8.4-10.2) mg/dL Urine Appearance Cloudy H (Clear) Urine Protein 1+ H (Negative) Urine Ketones Trace H (Negative) Urine Blood Trace H (Negative) Urine Mucus Occasional H (None) /hpf Coronavirus (PCR) (Not Detectd) 09/16/20 Range/Units 06:47 WBC (3.8-10.6) k/uL RBC (3.80-5.40) m/uL Hgb (11.4-16.0) gm/dL Hct (34.0-46.0) % Lymphocytes # (1.0-4.8) k/uL PT (9.0-12.0) sec INR (<1.2) D-Dimer (<0.60) mg/L FEU Sodium 135 L (137-145) mmol/L Chloride 97 L (98-107) mmol/L Glucose 172 H (74-99) mg/dL Calcium 8.3 L (8.4-10.2) mg/dL Urine Appearance (Clear) Urine Protein (Negative) Urine Ketones (Negative) Urine Blood (Negative) Urine Mucus (None) /hpf Coronavirus (PCR) (Not Detectd) Thrombosis Risk Factor Assmnt - Choose All That Apply Any of the Below Risk Factors Present?: Yes Each Factor Represents 1 point: Obesity (BMI >25) Each Risk Factor Represents 3 Points: Age 75 years or older, History of DVT/PE Thrombosis Risk Factor Assessment Total Risk Factor Score: 7 Thrombosis Risk Factor Assessment Level: High Risk Assessment and Plan Plan: -Covid 19 infection: Patient looks clinically well will monitor the patient for one more night. Patient doesn't have any symptoms will be discharged tomorrow patient chest x-ray is not showing any significant infiltrate. The patient is on steroids because she is requiring 2 L of oxygen -From her arthritis and osteoarthritis -Hyperlipidemia -hyperthyroidism -History of for diabetes mellitus but not on any medications for diabetes patient's blood sugars will be monitored DVT prophylaxis with Lovenox
[2020-09-16] MEDS: ASCORBIC ACID 500 MG TAB PO SCH ×2 (13:23→19:27)
[2020-09-16] MEDS: ENOXAPARIN 40 MG/0.4 ML SYRINGE SQ SCH (13:23)
[2020-09-16] MEDS: ZINC SULFATE 220 MG CAP PO SCH (13:23)
[2020-09-16] MEDS: SODIUM CHLORIDE 0.9% 1,000 ML IV SCH ×2 (13:24→23:39)
[2020-09-16 17:09] LABS: Glucose,Whole Blood 137 mg/dL (75-99)
[2020-09-16] MEDS: INSULIN ASPART (NovoLOG) 100 UNIT/ML VIAL SQ SCH ×2 (17:28→19:43)
[2020-09-16] MEDS: traMADol 50 MG TAB PO PRN ×2 (17:54→23:41)
[2020-09-16] MEDS: DEXAMETHASONE SOD PHOSPHATE 10 MG/ML 1 ML VIAL IV SCH (19:27)
[2020-09-16] MEDS: FAMOTIDINE 20 MG TAB PO SCH (19:27)
[2020-09-16 19:43] LABS: Glucose,Whole Blood 134 mg/dL (75-99)
--- NOTE | 2020-09-16 23:42 | CONS ---
CONSULTATION DATE OF SERVICE: 09/16/2020 REASON FOR CONSULTATION: Covid 19 infection. HISTORY OF PRESENT ILLNESS: The patient is an 85 -year-old female with past medical history significant for diabetes mellitus, hypertension, presented to the ER with chief complaints of increasing shortness of breath and weakness in this patient whose symptoms have been going on since 04 of September when the patient received her second dose of Covid 19 vaccination. Patient complaining of feeling weak, did have generalized body aches and chills which she initially attributed to the Covid vaccine. However, her symptoms did not improve, continued to get worse and started having increased shortness of breath on minimal exertion. The patient is wheelchair bound and has difficulty transferring herself. Did have a low-grade fever and decreased appetite. The patient has been nauseated, but no vomiting. No abdominal pain or diarrhea. With these symptoms, the patient was evaluated by the ER physician. On arrival to the ER, the patient was afebrile. Subsequently did have a low-grade fever of 100.3. The patient did have hypoxemia, O2 saturation 94% on room air, currently 95% on 3 L nasal cannula. The patient did have a normal white count on admission, repeat showing leukopenia as well as lymphopenia. D-dimer was 0.94, creatinine was normal. Liver enzymes are normal and inflammatory markers have not been checked. Urine was negative. Covid PCR came back positive. The patient did have a chest x-ray, no acute pulmonary process. The patient was admitted to the hospital. Infectious disease was consulted for further management. REVIEW OF SYSTEMS: Positive points have been mentioned in HPI. Rest of systems are negative. PAST MEDICAL HISTORY: Diabetes mellitus, hyperlipidemia, hypothyroidism, Jordana Charcot Tooth syndrome, heart failure, osteoarthritis, hypothyroidism, previous history of MRSA right shoulder and right hip infection. PAST SURGICAL HISTORY: Cholecystectomy, hysterectomy, tonsillectomy, right hip replacement. SOCIAL HISTORY: No history of smoking, drinking or drug use. FAMILY HISTORY: Father had congestive heart failure, diabetes mellitus. ALLERGIES: TO MULTIPLE MEDICATIONS as listed in chart. MEDICATIONS: The patient is on Tylenol, vitamin C, vitamin D3, Lotrimin, Decadron, Lovenox, Pepcid, Neurontin, NovoLog, Synthroid, Toprol-XL, Narcan, Zofran, Tramadol, zinc sulfate. PHYSICAL EXAMINATION: Blood pressure 152/78 with a pulse of 73, temperature 98.4, T-max 100.3. She is 95% on 3 L nasal cannula. General description: An elderly female lying in bed in no distress. No tachypnea or accessory muscles of respiration use. HEENT: Examination shows no pallor or scleral icterus. Oral mucous membranes dry. NECK trachea central. No thyromegaly. LUNGS: Unlabored breathing, decreased breath sounds. No wheeze or crackles. HEART S1, S2. Regular rate and rhythm. ABDOMEN soft, no tenderness. No guarding. No rigidity. EXTREMITIES: No edema of the feet. SKIN examination: No rash or mass palpable. NEUROLOGICAL: Patient is awake, alert, oriented x3. Mood and affect normal. LABS: Hemoglobin is 16.8, white count 2.6, BUN of 8, creatinine is 0.59. Inflammatory markers have not been checked. Urine is negative. [place] PCR was positive. Chest x- ray was negative. DIAGNOSTIC IMPRESSION AND PLAN: Patient admitted to the hospital with increasing shortness of breath and weakness in this patient whose symptoms have been going since September 04. The patient did have mild hypoxemia, however chest x-ray negative. More likely indicating mild Covid infection. Unfortunately, patient out of the therapeutic window for Remdesivir. PLAN: 1. Check inflammatory markers. 2. The patient to continue with Lovenox, dexamethasone, zinc and ascorbic acid. 3. Droplet isolation and respiratory support. 4. We will follow up on clinical condition and further adjust medication if needed. Thank you for this consultation. Will follow this patient along with you. MMODL / IJN: [id number] / TIN
[2020-09-17] MEDS: LEVOTHYROXINE 125 MCG TAB PO SCH (06:02)
[2020-09-17] MEDS: traMADol 50 MG TAB PO PRN ×3 (06:02→20:53)
[2020-09-17 06:25] LABS: Glucose,Whole Blood 138 mg/dL (75-99)
[2020-09-17 07:15] LABS: Glucose,Whole Blood 163 mg/dL (75-99)
[2020-09-17 07:47] LABS: Basophils % (A) 0 %; Eosinophils % (A) 0 %; HCT 46.1 % (34.0-46.0); HGB 15.9 gm/dL (11.4-16.0); Lymphocytes # (A) 0.9 k/uL (1.0-4.8); Lymphocytes % (A) 19 %; MCH 31.2 pg (25.0-35.0); MCHC 34.5 g/dL (31.0-37.0); MCV 90.6 fL (80.0-100.0); Mean Platelet Volume 7.7; Monocytes # (A) 0.2 k/uL (0-1.0); Monocytes % (A) 5 %; Neutrophils # (A) 3.5 k/uL (1.3-7.7); Neutrophils % (A) 75 %; Platelet Count 179 k/uL (150-450); RBC 5.09 m/uL (3.80-5.40); RDW 12.7 % (11.5-15.5); WBC 4.7 k/uL (3.8-10.6)
[2020-09-17 07:49] LABS: ALT 20 U/L (4-34); AST 34 U/L (14-36); African American GFR (CKD) >90 (>60 ml/min/1.73 sqM); Albumin 3.3 g/dL (3.5-5.0); Alkaline Phosphatase 86 U/L (38-126); Anion Gap 8 mmol/L; Blood Urea Nitrogen 14 mg/dL (7-17); C Reactive Protein 12.9 mg/L (<10.0); Calcium 8.5 mg/dL (8.4-10.2); Carbon Dioxide 27 mmol/L (22-30); Chloride 100 mmol/L (98-107); Glucose 155 mg/dL (74-99); LDH 461 U/L (313-618); Magnesium 1.7 mg/dL (1.6-2.3); Non-African American GFR(CKD) >90 (>60 ml/min/1.73 sqM); Potassium 4.2 mmol/L (3.5-5.1); Sodium 135 mmol/L (137-145); Total Bilirubin 0.5 mg/dL (0.2-1.3); Total Protein 5.8 g/dL (6.3-8.2)
[2020-09-17] MEDS: INSULIN ASPART (NovoLOG) 100 UNIT/ML VIAL SQ SCH ×4 (08:13→20:54)
[2020-09-17] MEDS: ENOXAPARIN 40 MG/0.4 ML SYRINGE SQ SCH (08:13)
[2020-09-17] MEDS: ZINC SULFATE 220 MG CAP PO SCH (08:14)
[2020-09-17] MEDS: ASCORBIC ACID 500 MG TAB PO SCH ×2 (08:14→20:52)
[2020-09-17] MEDS: FAMOTIDINE 20 MG TAB PO SCH ×2 (08:14→20:52)
[2020-09-17] MEDS: CHOLECALCIFEROL 25 MCG (1000 IU) TABLET PO SCH (08:14)
[2020-09-17] MEDS: CLOTRIMAZOLE 1% CREAM 30 GM TUBE TOPICAL SCH (08:14)
[2020-09-17] MEDS: GABAPENTIN 100 MG CAP PO SCH ×3 (08:14→20:52)
[2020-09-17] MEDS: BENZONATATE 100 MG CAP PO SCH ×3 (08:14→21:00)
[2020-09-17] MEDS: METOPROLOL SUCCINATE (ER) 25 MG TAB.ER.24H PO SCH (08:14)
--- NOTE | 2020-09-17 09:06 | XR ---
EXAMINATION TYPE: XR chest 1V portable DATE OF EXAM: 09/17/2020 Comparison: 09/15/2020 Clinical History: 85-year-old female sob Findings: Heart mildly enlarged. Mild patchy lower lung opacities are unchanged, probably atelectasis. Advanced degenerative changes both shoulders. Atherosclerotic arch calcifications. Impression: Mild cardiomegaly. Some mild patchy lower lung opacities, likely areas of atelectasis. Otherwise, no definite acute process.
--- NOTE | 2020-09-17 09:17 | P.PN ---
Subjective Progress Note Date: 09/17/20 Principal diagnosis: covid 19 infection generalized weakness 85-year-old female was admitted to the hospital for generalized weakness and shortness of breath with associated nonproductive cough patient had extensive diagnostic workup in the emergency department revealing a covid- 19 infection.she has significant medical history of rheumatoid arthritis, charcot yahir tooth, heart failure, diabetes mellitus, hyperlipidemia, thyroid disorder, thyroid disorder, and it inability to ambulate due to debilitating rheumatoid arthritis. Patient was evaluated this a.m. resting comfortably in bed on 2 L of oxygen saturations 92-94%. Patient continues to endorse chills, shortness of breath on exertion, and generalized weakness. Objective - Vital Signs Vital signs: Vital Signs Temp 97.5 F L 09/17/20 03:14 Pulse 61 09/17/20 03:14 Resp 18 09/17/20 03:14 BP 138/68 09/17/20 03:14 Pulse Ox 97 09/17/20 03:14 Intake & Output 09/16/20 09/17/20 09/17/20 18:59 06:59 18:59 Intake Total 300 600 Output Total 700 Balance 300 -100 Intake: IV 600 Sodium Chloride 0.9% 1, 600 000 ml @ 75 mls/hr IV . [id number] DANO Rx#:[id number] Intake, IV Titration 300 Amount Sodium Chloride 0.9% 1, 300 000 ml @ 75 mls/hr IV . [id number] DANO Rx#:[id number] Output: Urine 700 Other: Voiding Method Bedpan - Constitutional General appearance: Present: mild distress - EENT Eyes: Present: EOMI, PERRLA Ears: bilateral: normal - Respiratory Respiratory: bilateral: diminished (anterior and posterior lung amin) - Cardiovascular Details: normal sinus rhythm Heart rate: 67 Rhythm: regular Heart sounds: normal: S1, S2 - Peripheral edema foot Peripheral Edema: bilateral: Trace - Peripheral pulses radial pulse Peripheral Pulses: bilateral: Normal - Gastrointestinal General gastrointestinal: Present: normal bowel sounds, ventral hernia - Integumentary Integumentary: Present: decreased turgor, pale - Neurologic Neurologic: Present: CNII-XII intact - Musculoskeletal Musculoskeletal: Present: generalized weakness - Psychiatric Psychiatric: Present: A&O x's 3, appropriate affect, intact judgment & insight - Allied health notes Allied health notes reviewed: nursing - Labs CBC & Chem 7: 09/17/20 07:14 09/17/20 07:14 Labs: Abnormal Lab Results - Last 24 Hours (Table) 09/16/20 09/16/20 09/17/20 Range/Units 17:08 19:41 06:22 Hct (34.0-46.0) % Lymphocytes # (1.0-4.8) k/uL D-Dimer (<0.60) mg/L FEU Sodium (137-145) mmol/L Creatinine (0.52-1.04) mg/dL Glucose (74-99) mg/dL POC Glucose (mg/dL) 137 H 134 H 138 H (75-99) mg/dL C-Reactive Protein (<10.0) mg/L Total Protein (6.3-8.2) g/dL Albumin (3.5-5.0) g/dL 09/17/20 09/17/20 09/17/20 Range/Units 07:13 07:14 07:14 Hct 46.1 H (34.0-46.0) % Lymphocytes # 0.9 L (1.0-4.8) k/uL D-Dimer 0.71 H (<0.60) mg/L FEU Sodium (137-145) mmol/L Creatinine (0.52-1.04) mg/dL Glucose (74-99) mg/dL POC Glucose (mg/dL) 163 H (75-99) mg/dL C-Reactive Protein (<10.0) mg/L Total Protein (6.3-8.2) g/dL Albumin (3.5-5.0) g/dL 09/17/20 Range/Units 07:14 Hct (34.0-46.0) % Lymphocytes # (1.0-4.8) k/uL D-Dimer (<0.60) mg/L FEU Sodium 135 L (137-145) mmol/L Creatinine 0.45 L (0.52-1.04) mg/dL Glucose 155 H (74-99) mg/dL POC Glucose (mg/dL) (75-99) mg/dL C-Reactive Protein 12.9 H (<10.0) mg/L Total Protein 5.8 L (6.3-8.2) g/dL Albumin 3.3 L (3.5-5.0) g/dL - Imaging and Cardiology Chest x-ray: report reviewed Assessment and Plan Assessment: Covid 19 infectioncontinue coven 19 cocktail Rheumatoid arthritis continue analgesics as needed, and physical therapy Hyperlipidemia continue home medications Hypertension continue home medications diabetes mellitus type 2-continue to monitor blood sugars Hypothyroidismcontinue Continue medical management Hopeful discharge in 24-48 hours Time with Patient: Greater than 30
[2020-09-17] MEDS: SODIUM CHLORIDE 0.9% 1,000 ML IV SCH (10:37)
[2020-09-17] MEDS: ACETAMINOPHEN TAB 325 MG TAB PO PRN (10:37)
[2020-09-17 12:04] LABS: Glucose,Whole Blood 120 mg/dL (75-99)
[2020-09-17 16:51] LABS: Ferritin 282.9 ng/mL (10.0-291.0)
[2020-09-17 17:00] LABS: Glucose,Whole Blood 97 mg/dL (75-99)
--- NOTE | 2020-09-17 19:43 | PN ---
PROGRESS NOTE DATE OF SERVICE: 09/17/2020 REASON FOR FOLLOWUP: COVID-19 infection. INTERVAL HISTORY: The patient is afebrile. The patient mentioned that she is not feeling as good as she was feeling yesterday. Denies having any chest pain, though, or worsening shortness of breath. Cough but no sputum production. No abdominal pain or diarrhea. PHYSICAL EXAMINATION: Blood pressure 144/88 with a pulse of 67, temperature 98.2. She is 93% on 2 L nasal cannula. General description is an elderly female lying in bed in no distress. RESPIRATORY SYSTEM: Unlabored breathing with decreased intensity of breath sounds. No wheeze. HEART: S1, S2. Regular rate and rhythm. ABDOMEN: Soft. No tenderness. EXTREMITIES: No edema of the feet. LABS: Hemoglobin is 15.2, white count 4.7. D-dimer is 0.7. BUN of 14, creatinine 0.45. DIAGNOSTIC IMPRESSION AND PLAN: Patient with acute COVID-19 infection. Patient seems to have clinical improvement, as she is not as hypoxic as she was yesterday. However, the patient herself is not feeling well. We will keep her on dexamethasone, Lovenox, zinc and ascorbic acid, Hep- Lock her IV fluid and reevaluate the patient tomorrow. Continue with supportive care. MMODL / IJN: [id number] /
[2020-09-17 20:42] LABS: Glucose,Whole Blood 95 mg/dL (75-99)
[2020-09-17] MEDS: DEXAMETHASONE SOD PHOSPHATE 10 MG/ML 1 ML VIAL IV SCH (20:53)
[2020-09-18] MEDS: traMADol 50 MG TAB PO PRN ×3 (04:01→21:41)
[2020-09-18] MEDS: LEVOTHYROXINE 125 MCG TAB PO SCH (05:43)
--- NOTE | 2020-09-18 06:48 | P.PN ---
Subjective Progress Note Date: 09/18/20 Principal diagnosis: covid 19 infection generalized weakness Dyspnea 85-year-old female was admitted to the hospital for generalized weakness and shortness of breath with associated nonproductive cough patient had extensive diagnostic workup in the emergency department revealing a covid- 19 infection.she has significant medical history of rheumatoid arthritis, charcot yahir tooth, heart failure, diabetes mellitus, hyperlipidemia, thyroid disorder, thyroid disorder, and it inability to ambulate due to debilitating rheumatoid arthritis. Patient was evaluated this a.m. resting comfortably in bed on 2 L of oxygen saturations 92-94%. Patient continues to endorse chills, shortness of breath on exertion, and generalized weakness. 09/18/2020 Patient resting comfortably in bed, patient continues to endorse chills, shortness of breath, dyspnea on exertion, mid chest discomfort, and generalized weakness. oxygen saturation on 2 L patient is from 93-95%. She continues to be nefit from coven 19 treatments. Patient's been having elevated blood pressure will start Cozaar 50 mg by mouth daily to see response. adding additional albuterol for shortness of breath .Awaiting diagnostic labs this a.m. and urine culture Objective - Vital Signs Vital signs: Vital Signs Temp 97.8 F 09/18/20 03:43 Pulse 71 09/18/20 03:43 Resp 18 09/18/20 03:43 BP 183/91 09/18/20 03:43 Pulse Ox 95 09/18/20 03:43 Intake & Output 09/17/20 09/17/20 09/18/20 06:59 18:59 06:59 Intake Total 600 300 Output Total 700 800 800 Balance -100 -500 -800 Intake: IV 600 Sodium Chloride 0.9% 1, 600 000 ml @ 75 mls/hr IV . [id number] DANO Rx#:[id number] Intake, IV Titration 300 Amount Sodium Chloride 0.9% 1, 300 000 ml @ 75 mls/hr IV . [id number] DANO Rx#:[id number] Output: Urine 700 800 800 Other: Voiding Method Bedpan Bedpan External Catheter External Catheter - Constitutional General appearance: Present: mild distress - EENT Eyes: Present: EOMI, PERRLA Ears: bilateral: normal - Neck Carotids: bilateral: upstroke normal Thyroid: bilateral: normal size - Respiratory Respiratory: bilateral: diminished (Anterior and posterior lung amin) - Cardiovascular Details: Sinus rhythm Heart rate: 82 Rhythm: regular Heart sounds: normal: S1, S2 - Peripheral edema foot Peripheral Edema: bilateral: Trace - Peripheral pulses radial pulse Peripheral Pulses: bilateral: Normal - Gastrointestinal General gastrointestinal: Present: normal bowel sounds, ventral hernia - Integumentary Integumentary: Present: pale - Neurologic Neurologic: Present: CNII-XII intact - Musculoskeletal Musculoskeletal: Present: generalized weakness - Psychiatric Psychiatric: Present: A&O x's 3, appropriate affect, intact judgment & insight - Allied health notes Allied health notes reviewed: nursing - Labs CBC & Chem 7: 09/17/20 07:14 09/17/20 07:14 Labs: Abnormal Lab Results - Last 24 Hours (Table) 09/17/20 09/17/20 09/17/20 Range/Units 07:13 07:14 07:14 Hct 46.1 H (34.0-46.0) % Lymphocytes # 0.9 L (1.0-4.8) k/uL D-Dimer 0.71 H (<0.60) mg/L FEU Sodium (137-145) mmol/L Creatinine (0.52-1.04) mg/dL Glucose (74-99) mg/dL POC Glucose (mg/dL) 163 H (75-99) mg/dL C-Reactive Protein (<10.0) mg/L Total Protein (6.3-8.2) g/dL Albumin (3.5-5.0) g/dL 09/17/20 09/17/20 Range/Units 07:14 12:01 Hct (34.0-46.0) % Lymphocytes # (1.0-4.8) k/uL D-Dimer (<0.60) mg/L FEU Sodium 135 L (137-145) mmol/L Creatinine 0.45 L (0.52-1.04) mg/dL Glucose 155 H (74-99) mg/dL POC Glucose (mg/dL) 120 H (75-99) mg/dL C-Reactive Protein 12.9 H (<10.0) mg/L Total Protein 5.8 L (6.3-8.2) g/dL Albumin 3.3 L (3.5-5.0) g/dL Microbiology - Last 24 Hours (Table) 09/17/20 13:18 Urine Culture - Preliminary Urine,Voided Assessment and Plan Assessment: Covid 19 infectioncontinue covid 19 cocktail Rheumatoid arthritis continue analgesics as needed, and physical therapy Hyperlipidemia continue home medications Hypertension- Starting Cozaar 50 mg by mouth daily diabetes mellitus type 2-continue to monitor blood sugars Hypothyroidismcontinue medications Continue to monitor vital signs and diagnostic labs, awaiting urinary culture Continue medical management Hopeful discharge in 24 hours Time with Patient: Greater than 30
[2020-09-18 07:36] LABS: Glucose,Whole Blood 117 mg/dL (75-99)
[2020-09-18 07:56] LABS: Basophils % (A) 0 %; Eosinophils % (A) 0 %; HCT 46.5 % (34.0-46.0); HGB 16.2 gm/dL (11.4-16.0); Lymphocytes # (A) 0.7 k/uL (1.0-4.8); Lymphocytes % (A) 13 %; MCH 31.5 pg (25.0-35.0); MCHC 34.9 g/dL (31.0-37.0); MCV 90.1 fL (80.0-100.0); Mean Platelet Volume 7.8; Monocytes # (A) 0.4 k/uL (0-1.0); Monocytes % (A) 7 %; Neutrophils # (A) 4.6 k/uL (1.3-7.7); Neutrophils % (A) 79 %; Platelet Count 201 k/uL (150-450); RBC 5.16 m/uL (3.80-5.40); RDW 12.6 % (11.5-15.5); WBC 5.9 k/uL (3.8-10.6)
[2020-09-18] MEDS: INSULIN ASPART (NovoLOG) 100 UNIT/ML VIAL SQ SCH ×4 (07:59→20:40)
[2020-09-18] MEDS: CHOLECALCIFEROL 25 MCG (1000 IU) TABLET PO SCH (08:05)
[2020-09-18] MEDS: FAMOTIDINE 20 MG TAB PO SCH ×2 (08:05→20:40)
[2020-09-18] MEDS: ZINC SULFATE 220 MG CAP PO SCH (08:05)
[2020-09-18] MEDS: ENOXAPARIN 40 MG/0.4 ML SYRINGE SQ SCH (08:06)
[2020-09-18] MEDS: ASCORBIC ACID 500 MG TAB PO SCH ×2 (08:06→20:41)
[2020-09-18] MEDS: METOPROLOL SUCCINATE (ER) 25 MG TAB.ER.24H PO SCH (08:06)
[2020-09-18] MEDS: LOSARTAN 50 MG TAB PO SCH (08:06)
[2020-09-18] MEDS: BENZONATATE 100 MG CAP PO SCH ×3 (08:06→21:41)
[2020-09-18] MEDS: GABAPENTIN 100 MG CAP PO SCH ×3 (08:06→21:41)
[2020-09-18 08:22] LABS: ALT 37 U/L (4-34); AST 54 U/L (14-36); African American GFR (CKD) >90 (>60 ml/min/1.73 sqM); Albumin 3.4 g/dL (3.5-5.0); Alkaline Phosphatase 85 U/L (38-126); Anion Gap 8 mmol/L; Blood Urea Nitrogen 13 mg/dL (7-17); Calcium 8.2 mg/dL (8.4-10.2); Carbon Dioxide 27 mmol/L (22-30); Chloride 100 mmol/L (98-107); Glucose 127 mg/dL (74-99); Magnesium 1.8 mg/dL (1.6-2.3); Non-African American GFR(CKD) >90 (>60 ml/min/1.73 sqM); Potassium 4.1 mmol/L (3.5-5.1); Sodium 135 mmol/L (137-145); Total Bilirubin 0.6 mg/dL (0.2-1.3)
[2020-09-18] MEDS: ALBUTEROL HFA INHALER INHALATION SCH ×4 (08:36→20:13)
[2020-09-18 11:43] LABS: Glucose,Whole Blood 173 mg/dL (75-99)
[2020-09-18] MEDS: CLOTRIMAZOLE 1% CREAM 30 GM TUBE TOPICAL SCH (12:25)
[2020-09-18 16:40] LABS: Glucose,Whole Blood 103 mg/dL (75-99)
[2020-09-18] MEDS: ACETAMINOPHEN TAB 325 MG TAB PO PRN (17:16)
--- NOTE | 2020-09-18 17:19 | PN ---
PROGRESS NOTE DATE OF SERVICE: 09/18/2020 REASON FOR FOLLOWUP: COVID-19 pneumonia. INTERVAL HISTORY: The patient is currently afebrile. The patient mentioned she is feeling slightly better today, able to breathe a little bit easily. Denies having chest pain. She continues to have a cough, but no worsening. No abdominal pain or diarrhea. PHYSICAL EXAMINATION: Blood pressure 146/83, pulse of 73, temperature 97.9. She is 96% on 2 L nasal cannula. General description is an elderly female lying in bed in no distress. RESPIRATORY SYSTEM: Unlabored breathing. Clear to auscultation anteriorly. HEART: S1, S2. Regular rate and rhythm. ABDOMEN: Soft. No tenderness. LABS: Hemoglobin 15.2, white count of 5.9, BUN of 13, creatinine 0.49. DIAGNOSTIC IMPRESSION AND PLAN: Patient with acute COVID-19 infection in this patient who has shown some clinical improvement. She is currently on dexamethasone, Lovenox, zinc and ascorbic acid; to continue, and monitor clinical course closely. Continue supportive care. MMODL / IJN: [id number] /
[2020-09-18 20:24] LABS: Glucose,Whole Blood 112 mg/dL (75-99)
[2020-09-18] MEDS: DEXAMETHASONE SOD PHOSPHATE 10 MG/ML 1 ML VIAL IV SCH (20:41)
[2020-09-19 05:30] LABS: Glucose,Whole Blood 158 mg/dL (75-99)
[2020-09-19] MEDS: traMADol 50 MG TAB PO PRN ×2 (05:44→15:27)
[2020-09-19] MEDS: LEVOTHYROXINE 125 MCG TAB PO SCH (05:45)
--- NOTE | 2020-09-19 07:17 | P.PN ---
Subjective Progress Note Date: 09/19/20 Principal diagnosis: covid 19 infection generalized weakness Dyspnea Urinary tract infection 85-year-old female was admitted to the hospital for generalized weakness and shortness of breath with associated nonproductive cough patient had extensive diagnostic workup in the emergency department revealing a covid- 19 infection.she has significant medical history of rheumatoid arthritis, charcot yahir tooth, heart failure, diabetes mellitus, hyperlipidemia, thyroid disorder, thyroid disorder, and it inability to ambulate due to debilitating rheumatoid arthritis. Patient was evaluated this a.m. resting comfortably in bed on 2 L of oxygen saturations 92-94%. Patient continues to endorse chills, shortness of breath on exertion, and generalized weakness. 09/18/2020 Patient resting comfortably in bed, patient continues to endorse chills, shortness of breath, dyspnea on exertion, mid chest discomfort, and generalized weakness. oxygen saturation on 2 L patient is from 93-95%. She continues to benefit from covid 19 treatments. Patient's been having elevated blood pressure will start Cozaar 50 mg by mouth daily to see response. adding additional albuterol for shortness of breath .Awaiting diagnostic labs this a.m. and urine culture 09/19/2020 Evaluated patient this a.m., resting comfortably in bed. Patient endorses chills, shortness of breath, dyspnea on exertion, dysuria and generalized weakness. she continues to benefit from Covid 19 treatments. Patient's blood pressure is stabilizing with Cozaar 50 mg by mouth daily. Preliminary urinary culture came back gram-negative bacilli-with a count of 50,000 to 100,000due to patient's symptomatic dysuriaand urine cultureRocephin 1 g IV piggyback has been initiated. She states her breathing has improved with albuterol inhaler and use of incentive spirometer. Patient's oxygen saturation 93-95% on 1.5 L. Awaiting on diagnostic labs this a.m. and final chest x-ray reading Objective - Vital Signs Vital signs: Vital Signs Temp 97.3 F L 09/19/20 03:57 Pulse 65 09/19/20 03:57 Resp 20 09/18/20 14:00 BP 159/88 09/19/20 03:57 Pulse Ox 93 L 09/19/20 03:57 Intake & Output 09/18/20 09/19/2009/19/21 18:59 06:59 18:59 Intake Total 240 Output Total 1300 Balance 240 -1300 Intake: Oral 240 Output: Urine 1300 Other: Voiding Method Bedpan Bedpan External Catheter External Catheter # Bowel Movements 1 - Constitutional General appearance: Present: mild distress - EENT Eyes: Present: EOMI, PERRLA Ears: bilateral: normal - Neck Thyroid: bilateral: normal size - Respiratory Respiratory: bilateral: diminished (anterior and posterior ) - Cardiovascular Details: NSR Heart rate: 65 Rhythm: regular Heart sounds: normal: S1, S2 - Peripheral edema leg Peripheral Edema: bilateral: Trace ankle Peripheral Edema: bilateral: Trace foot Peripheral Edema: bilateral: Trace - Peripheral pulses radial pulse Peripheral Pulses: bilateral: Normal dorsalis pedis Peripheral Pulses: bilateral: Diminished - Gastrointestinal General gastrointestinal: Present: normal bowel sounds, ventral hernia - Integumentary Integumentary: Present: pale - Neurologic Neurologic: Present: CNII-XII intact - Musculoskeletal Musculoskeletal: Present: generalized weakness - Psychiatric Psychiatric: Present: A&O x's 3, appropriate affect, intact judgment & insight - Allied health notes Allied health notes reviewed: nursing - Labs CBC & Chem 7: 09/18/20 07:11 09/18/20 07:11 Labs: Abnormal Lab Results - Last 24 Hours (Table) 09/18/20 09/18/20 09/18/20 Range/Units 07:11 07:11 07:25 Hgb 16.2 H (11.4-16.0) gm/dL Hct 46.5 H (34.0-46.0) % Lymphocytes # 0.7 L (1.0-4.8) k/uL Sodium 135 L (137-145) mmol/L Creatinine 0.49 L (0.52-1.04) mg/dL Glucose 127 H (74-99) mg/dL POC Glucose (mg/dL) 117 H (75-99) mg/dL Calcium 8.2 L (8.4-10.2) mg/dL AST 54 H (14-36) U/L ALT 37 H (4-34) U/L Total Protein 6.0 L (6.3-8.2) g/dL Albumin 3.4 L (3.5-5.0) g/dL 0409/18/20 09/18/20 Range/Units 11:40 16:39 20:23 Hgb (11.4-16.0) gm/dL Hct (34.0-46.0) % Lymphocytes # (1.0-4.8) k/uL Sodium (137-145) mmol/L Creatinine (0.52-1.04) mg/dL Glucose (74-99) mg/dL POC Glucose (mg/dL) 173 H 103 H 112 H (75-99) mg/dL Calcium (8.4-10.2) mg/dL AST (14-36) U/L ALT (4-34) U/L Total Protein (6.3-8.2) g/dL Albumin (3.5-5.0) g/dL 09/19/20 Range/Units 05:29 Hgb (11.4-16.0) gm/dL Hct (34.0-46.0) % Lymphocytes # (1.0-4.8) k/uL Sodium (137-145) mmol/L Creatinine (0.52-1.04) mg/dL Glucose (74-99) mg/dL POC Glucose (mg/dL) 158 H (75-99) mg/dL Calcium (8.4-10.2) mg/dL AST (14-36) U/L ALT (4-34) U/L Total Protein (6.3-8.2) g/dL Albumin (3.5-5.0) g/dL Microbiology - Last 24 Hours (Table) 09/17/20 13:18 Urine Culture - Preliminary Urine,Voided Gram Neg Bacilli - Imaging and Cardiology Chest x-ray: image reviewed Assessment and Plan Assessment: Covid 19 infectioncontinue covid 19 cocktail Urine culture positive for gram-negative bacilliRocephin 1 g every 24 hours IV piggyback Rheumatoid arthritis continue analgesics as needed, and physical therapy Hyperlipidemia continue home medications Hypertension- continue Cozaar 50 mg by mouth daily diabetes mellitus type 2-continue to monitor blood sugars Hypothyroidismcontinue medications Continue to monitor vital signs and diagnostic labs, and chest x-ray Continue medical management Hopeful discharge in 24 hours Time with Patient: Greater than 30
[2020-09-19 08:03] LABS: Glucose,Whole Blood 134 mg/dL (75-99)
[2020-09-19] MEDS: ALBUTEROL HFA INHALER INHALATION SCH ×4 (08:08→21:10)
--- NOTE | 2020-09-19 08:37 | XR ---
EXAMINATION TYPE: XR chest 1V portable DATE OF EXAM: 09/19/2020 COMPARISON: Chest x-ray 09/17/2020 HISTORY: Shortness of breath TECHNIQUE: Single frontal view of the chest is obtained. FINDINGS: Patchy basilar density is present in the lungs. Aorta is dense and possibly ectatic. Heart is enlarged. No evident pneumothorax. Marked arthropathy, distortion noted in the right shoulder. No evident effusion. Patient is rotated. There are overlying leads. IMPRESSION: Basilar atelectasis, correlate to exclude pneumonia. Possible cardiomegaly, aortic aneur ysm or ectasia suspected although the patient is rotated. Additional findings above.
[2020-09-19] MEDS: CHOLECALCIFEROL 25 MCG (1000 IU) TABLET PO SCH (09:11)
[2020-09-19] MEDS: ENOXAPARIN 40 MG/0.4 ML SYRINGE SQ SCH (09:11)
[2020-09-19] MEDS: LOSARTAN 50 MG TAB PO SCH (09:11)
[2020-09-19] MEDS: GABAPENTIN 100 MG CAP PO SCH ×3 (09:11→22:11)
[2020-09-19] MEDS: FAMOTIDINE 20 MG TAB PO SCH ×2 (09:11→22:11)
[2020-09-19] MEDS: ASCORBIC ACID 500 MG TAB PO SCH ×2 (09:11→22:11)
[2020-09-19] MEDS: ZINC SULFATE 220 MG CAP PO SCH (09:11)
[2020-09-19] MEDS: INSULIN ASPART (NovoLOG) 100 UNIT/ML VIAL SQ SCH ×4 (09:12→22:14)
[2020-09-19] MEDS: CLOTRIMAZOLE 1% CREAM 30 GM TUBE TOPICAL SCH (09:13)
[2020-09-19] MEDS: BENZONATATE 100 MG CAP PO SCH ×3 (09:31→22:20)
[2020-09-19] MEDS: METOPROLOL SUCCINATE (ER) 25 MG TAB.ER.24H PO SCH (09:31)
[2020-09-19 11:12] LABS: Basophils % (A) 0 %; Eosinophils % (A) 0 %; HCT 46.5 % (34.0-46.0); Lymphocytes # (A) 0.6 k/uL (1.0-4.8); Lymphocytes % (A) 15 %; MCH 31.1 pg (25.0-35.0); MCHC 34.4 g/dL (31.0-37.0); MCV 90.4 fL (80.0-100.0); Mean Platelet Volume 7.9; Monocytes # (A) 0.3 k/uL (0-1.0); Monocytes % (A) 6 %; Neutrophils # (A) 3.2 k/uL (1.3-7.7); Neutrophils % (A) 76 %; Platelet Count 194 k/uL (150-450); RBC 5.14 m/uL (3.80-5.40); RDW 12.6 % (11.5-15.5); WBC 4.2 k/uL (3.8-10.6)
[2020-09-19 11:51] LABS: ALT 38 U/L (4-34); AST 38 U/L (14-36); African American GFR (CKD) >90 (>60 ml/min/1.73 sqM); Albumin 3.3 g/dL (3.5-5.0); Alkaline Phosphatase 89 U/L (38-126); Anion Gap 8 mmol/L; Blood Urea Nitrogen 14 mg/dL (7-17); Calcium 8.9 mg/dL (8.4-10.2); Carbon Dioxide 30 mmol/L (22-30); Chloride 97 mmol/L (98-107); Glucose 155 mg/dL (74-99); LDH 482 U/L (313-618); Magnesium 1.8 mg/dL (1.6-2.3); Non-African American GFR(CKD) >90 (>60 ml/min/1.73 sqM); Sodium 135 mmol/L (137-145); Total Bilirubin 0.4 mg/dL (0.2-1.3); Total Protein 5.8 g/dL (6.3-8.2)
[2020-09-19 12:05] LABS: Glucose,Whole Blood 139 mg/dL (75-99)
[2020-09-19] MEDS ORDERED: hydrALAZINE HCL 20 MG/ML 1 ML VIAL IVP PRN (13:01)
[2020-09-19] MEDS: IOPAMIDOL CONTRAST (ORAL USE) VIAL PO PRN ×2 (15:03→16:00)
[2020-09-19 17:35] LABS: Glucose,Whole Blood 132 mg/dL (75-99)
--- NOTE | 2020-09-19 17:56 | PN ---
PROGRESS NOTE DATE OF SERVICE: 09/19/2020 REASON FOR FOLLOWUP: COVID-19 pneumonia. INTERVAL HISTORY: The patient is currently afebrile, has been complaining of feeling weak, no energy, still complaining of shortness of breath and a cough. No chest pain. No abdominal pain or diarrhea. PHYSICAL EXAMINATION: Blood pressure 113/60 with a pulse of 105, temperature 96.9. She is 98% on 2 L nasal cannula. General description is a middle-aged female lying in bed in no distress. RESPIRATORY SYSTEM: Unlabored breathing. Clear to auscultation anteriorly. HEART: S1, S2. Regular rate and rhythm. ABDOMEN: Soft. No tenderness. LABS: Hemoglobin of 16, white count 4.2, BUN of 14, creatinine 0.43. DIAGNOSTIC IMPRESSION AND PLAN: 1. Patient with COVID-19 infection in this patient who seems to clinically have shown some improvement. She is currently 98% on 2 L cannula, and oxygen can be slowly weaned off. She will be continued on the dexamethasone, Lovenox, zinc and ascorbic acid. Monitor clinical course closely. 2. Patient with urine showing a Gram-negative. However, the UA is negative. Clinically doubt UTI and antibiotics are discouraged. MMODL / IJN: [id number] /
[2020-09-19] MEDS ORDERED: HYDROmorphone 0.5 MG/0.5 ML SYRINGE SQ STA (18:06)
[2020-09-19] MEDS: SODIUM CHLORIDE 0.9% 1,000 ML IV SCH (18:23)
--- NOTE | 2020-09-19 19:37 | CT ---
EXAMINATION TYPE: CT abdomen pelvis w con DATE OF EXAM: 09/19/2020 COMPARISON: 01/06/2019 HISTORY: Acute Respiratory insufficiency, COVID, Tachycardia CT DLP: 2236.5 mGycm Automated exposure control for dose reduction was used. TECHNIQUE: Helical acquisition of images was performed from the lung bases through the pelvis. CONTRAST: Performed with Oral Contrast and with IV Contrast, patient injected with 100 mL of Isovue 3 00. FINDINGS: LUNG BASES: No definite acute findings. LIVER/GB: No significant abnormality is appreciated. PANCREAS: No significant abnormality is seen. SPLEEN: No significant abnormality is seen. ADRENALS: No significant abnormality is seen. KIDNEYS: No significant abnormality is seen. FREE AIR: No free air is visualized. RETROPERITONEAL ADENOPATHY: None visualized REPRODUCTIVE ORGANS: No significant abnormality is seen URINARY BLADDER: No significant abnormality is seen. PELVIC ADENOPATHY: None visualized. OSSEOUS STRUCTURES: No significant abnormality is seen. BOWEL: No significant abnormality is seen. VASCULATURE: No acute findings. ANTERIOR ABDOMINAL WALL MUSCULATURE: There is prominent heterogeneously hyperdense thickening of the left anterior abdominal wall musculature from the subcostal position contiguously down to the level o f the hips. This muscular thickening is smoothly marginated with greatest dimensions of this muscular wall thickening measuring approximately 25 cm CC X 20 cm AP X 9 cm deep. IMPRESSION: LEFT ABDOMINAL WALL MUSCULATURE HEMATOMA MEASURING APPROXIMATELY 25 X 20 X 9 CM.
[2020-09-19] MEDS ORDERED: HYDROmorphone 0.5 MG/0.5 ML SYRINGE IVP PRN (20:18)
[2020-09-19 21:20] LABS: ALT 45 U/L (4-34); AST 48 U/L (14-36); African American GFR (CKD) >90 (>60 ml/min/1.73 sqM); Albumin 3.4 g/dL (3.5-5.0); Alkaline Phosphatase 83 U/L (38-126); Anion Gap 10 mmol/L; Blood Urea Nitrogen 24 mg/dL (7-17); Calcium 9.2 mg/dL (8.4-10.2); Carbon Dioxide 24 mmol/L (22-30); Chloride 99 mmol/L (98-107); Glucose 147 mg/dL (74-99); Non-African American GFR(CKD) 85 (>60 ml/min/1.73 sqM); Potassium 4.1 mmol/L (3.5-5.1); Sodium 133 mmol/L (137-145); Total Bilirubin 0.7 mg/dL (0.2-1.3)
[2020-09-19 21:27] LABS: Basophils # (A) 0.1 k/uL (0-0.2); Basophils % (A) 0 %; Eosinophils # (A) 0.1 k/uL (0-0.7); Eosinophils % (A) 1 %; HCT 43.6 % (34.0-46.0); HGB 15.1 gm/dL (11.4-16.0); Lymphocytes # (A) 1.5 k/uL (1.0-4.8); Lymphocytes % (A) 12 %; MCH 31.5 pg (25.0-35.0); MCHC 34.6 g/dL (31.0-37.0); Mean Platelet Volume 8.6; Monocytes % (A) 8 %; Neutrophils # (A) 9.4 k/uL (1.3-7.7); Neutrophils % (A) 77 %; Platelet Count 285 k/uL (150-450); RBC 4.79 m/uL (3.80-5.40); RDW 12.8 % (11.5-15.5); WBC 12.3 k/uL (3.8-10.6)
[2020-09-19 21:31] LABS: Glucose,Whole Blood 153 mg/dL (75-99)
[2020-09-19 21:56] LABS: Ferritin 266.9 ng/mL (10.0-291.0)
[2020-09-19] MEDS: DEXAMETHASONE SOD PHOSPHATE 10 MG/ML 1 ML VIAL IV SCH (23:43)
[2020-09-20] MEDS ORDERED: SODIUM CHLORIDE 0.9% 500 ML 500 ML IV ONE ×2 (01:44→07:01)
[2020-09-20] MEDS: SODIUM CHLORIDE 0.9% 1,000 ML IV SCH ×2 (02:02→16:15)
[2020-09-20] MEDS: ACETAMINOPHEN TAB 325 MG TAB PO PRN (04:26)
[2020-09-20] MEDS: LEVOTHYROXINE 125 MCG TAB PO SCH (06:19)
[2020-09-20 06:45] LABS: Glucose,Whole Blood 168 mg/dL (75-99)
[2020-09-20] MEDS ORDERED: fentaNYL (PF) 50 MCG/ML 2 ML AMP IVP STA (06:56)
--- NOTE | 2020-09-20 07:18 | P.PN ---
Subjective Progress Note Date: 09/20/20 Principal diagnosis: covid 19 infection generalized weakness Dyspnea Urinary tract infection Left abdominal wall hematoma see dictation from CT abdomen and pelvis for measurements 85-year-old female was admitted to the hospital for generalized weakness and shortness of breath with associated nonproductive cough patient had extensive diagnostic workup in the emergency department revealing a covid- 19 infection.she has significant medical history of rheumatoid arthritis, charcot yahir tooth, heart failure, diabetes mellitus, hyperlipidemia, thyroid disorder, thyroid disorder, and it inability to ambulate due to debilitating rheumatoid arthritis. Patient was evaluated this a.m. resting comfortably in bed on 2 L of oxygen saturations 92-94%. Patient continues to endorse chills, shortness of breath on exertion, and generalized weakness. 09/18/2020 Patient resting comfortably in bed, patient continues to endorse chills, shortness of breath, dyspnea on exertion, mid chest discomfort, and generalized weakness. oxygen saturation on 2 L patient is from 93-95%. She continues to benefit from covid 19 treatments. Patient's been having elevated blood pressure will start Cozaar 50 mg by mouth daily to see response. adding additional albuterol for shortness of breath .Awaiting diagnostic labs this a.m. and urine culture 09/19/2020 Evaluated patient this a.m., resting comfortably in bed. Patient endorses chills, shortness of breath, dyspnea on exertion, dysuria and generalized weakness. she continues to benefit from Covid 19 treatments. Patient's blood pressure is stabilizing with Cozaar 50 mg by mouth daily. Preliminary urinary culture came back gram-negative bacilli-with a count of 50,000 to 100,000due to patient's symptomatic dysuriaand urine cultureRocephin 1 g IV piggyback has been initiated. She states her breathing has improved with albuterol inhaler and use of incentive spirometer. Patient's oxygen saturation 93-95% on 1.5 L. Awaiting on diagnostic labs this a.m. and final chest x-ray reading 09/20/2020 Elevated patient this a.m., patient resting in bed with mild discomfort noted to the abdomen. Patient had CT abdomen and pelvis last night with resulting abdominal wall hematoma. Surgery was consulted for recommendations and tr eatment plan. she had episodes of low blood pressure given normal saline 500 mL bolus and increase rate to 75 ML's per hour. Upon evaluation this a.m. patient's blood pressure still low 90s to 100 systolic another 500 mL bolus to be given. Discontinued blood pressure meds at this time. H&H continue to be stable. Patient's breathing to be unlabored and decreased work of breathingoxygen saturation on 2 L 96%. Discontinue Lovenox due to left abdominal wall hematoma.continue consultation with infectious disease for Covid 19 infection. Awaiting surgical recommendations and treatment plan for her left abdominal wall hematoma. Objective - Vital Signs Vital signs: Vital Signs Temp 96.7 F L 09/20/20 03:38 Pulse 84 09/20/20 03:38 Resp 20 09/20/20 03:38 BP 106/64 09/20/20 03:38 Pulse Ox 94 L 09/20/20 03:38 Intake & Output 09/19/20 09/20/20 09/20/20 18:59 06:59 18:59 Intake Total 240 1325 Output Total 500 Balance 240 825 Intake: Intake, IV Titration 1325 Amount Sodium Chloride 0.9% 1, 825 000 ml @ 75 mls/hr IV . [id number] DANO Rx#:[id number] Sodium Chloride 0.9% 500 500 ml 500 ml @ 999 mls/hr IV .Q31M ONE Rx#:[id number] Oral 240 Output: Urine 500 Other: Voiding Method Bedpan External Catheter External Catheter # Bowel Movements 1 - Constitutional General appearance: Present: mild distress - EENT Eyes: Present: EOMI, PERRLA ENT: Present: normal oropharynx Ears: bilateral: normal - Neck Neck: Present: normal ROM Carotids: bilateral: upstroke normal Thyroid: bilateral: normal size - Respiratory Respiratory: bilateral: CTA (Anterior lung amin), diminished (Posterior lung amin) - Cardiovascular Details: Sinus rhythm Heart rate: 87 Rhythm: regular Heart sounds: normal: S1, S2 - Peripheral pulses dorsalis pedis Peripheral Pulses: bilateral: Normal radial pulse Peripheral Pulses: bilateral: Normal - Gastrointestinal General gastrointestinal: Present: normal bowel sounds, tenderness Localized gastrointestinal: tender: diffuse, mass: LUQ - Integumentary Integumentary: Present: pale - Neurologic Neurologic: Present: CNII-XII intact - Musculoskeletal Musculoskeletal: Present: generalized weakness - Psychiatric Psychiatric: Present: A&O x's 3, appropriate affect, intact judgment & insight - Allied health notes Allied health notes reviewed: nursing - Labs CBC & Chem 7: 09/19/20 20:55 09/19/20 20:55 Labs: Abnormal Lab Results - Last 24 Hours (Table) 09/19/20 09/19/20 09/19/20 Range/Units 07:55 09:48 09:48 WBC (3.8-10.6) k/uL Hct 46.5 H (34.0-46.0) % Neutrophils # (1.3-7.7) k/uL Lymphocytes # 0.6 L (1.0-4.8) k/uL Sodium 135 L (137-145) mmol/L Chloride 97 L (98-107) mmol/L BUN (7-17) mg/dL Creatinine 0.43 L (0.52-1.04) mg/dL Glucose 155 H (74-99) mg/dL POC Glucose (mg/dL) 134 H (75-99) mg/dL AST 38 H (14-36) U/L ALT 38 H (4-34) U/L C-Reactive Protein 10.0 H (<10.0) mg/L Total Protein 5.8 L (6.3-8.2) g/dL Albumin 3.3 L (3.5-5.0) g/dL 09/19/20 09/19/20 09/19/20 Range/Units 11:59 17:32 20:55 WBC 12.3 H (3.8-10.6) k/uL Hct (34.0-46.0) % Neutrophils # 9.4 H (1.3-7.7) k/uL Lymphocytes # (1.0-4.8) k/uL Sodium (137-145) mmol/L Chloride (98-107) mmol/L BUN (7-17) mg/dL Creatinine (0.52-1.04) mg/dL Glucose (74-99) mg/dL POC Glucose (mg/dL) 139 H 132 H (75-99) mg/dL AST (14-36) U/L ALT (4-34) U/L C-Reactive Protein (<10.0) mg/L Total Protein (6.3-8.2) g/dL Albumin (3.5-5.0) g/dL 09/19/20 09/19/20 09/20/20 Range/Units 20:55 21:25 06:43 WBC (3.8-10.6) k/uL Hct (34.0-46.0) % Neutrophils # (1.3-7.7) k/uL Lymphocytes # (1.0-4.8) k/uL Sodium 133 L (137-145) mmol/L Chloride (98-107) mmol/L BUN 24 H (7-17) mg/dL Creatinine (0.52-1.04) mg/dL Glucose 147 H (74-99) mg/dL POC Glucose (mg/dL) 153 H 168 H (75-99) mg/dL AST 48 H (14-36) U/L ALT 45 H (4-34) U/L C-Reactive Protein (<10.0) mg/L Total Protein 6.0 L (6.3-8.2) g/dL Albumin 3.4 L (3.5-5.0) g/dL Microbiology - Last 24 Hours (Table) 09/17/20 13:18 Urine Culture - Final Urine,Voided Escherichia coli - Imaging and Cardiology Chest x-ray: image reviewed Assessment and Plan Assessment: Covid 19 infectioncontinue covid 19 cocktail Urine culture positive for gram-negative bacilliRocephin 1 g every 24 hours IV piggyback Left abdominal wall hematomaconsult surgery for recommendations and treatment plan Episodes of hypotension-most saline boluses of 500 mL 2hold blood pressure meds at this time Rheumatoid arthritis continue analgesics as needed, and physical therapy Hyperlipidemia continue home medications diabetes mellitus type 2-continue to monitor blood sugars Hypothyroidismcontinue medications Continue to monitor vital signs and diagnostic labs, and chest x-ray Continue medical management Further recommendations to come based on patient's clinical condition Time with Patient: Greater than 30
--- NOTE | 2020-09-20 07:20 | XR ---
EXAMINATION TYPE: XR chest 1V portable DATE OF EXAM: 09/20/2020 Comparison: 09/19/2020 Clinical History: 85-year-old female shortness of breath Findings: Low lung volumes. Relative lucencies. Patchy density at the lower lungs have a more strandy and bandl logan configuration now. Heart borderline in size. Upper lungs remain clear. Severe degenerative change right greater than left shoulders. Impression: Persistent basilar opacities though showing improvement now with more strandy/bandlike configuration suggesting areas of atelectasis. Some hypoventilatory changes. Possible background of COPD.
[2020-09-20] MEDS: INSULIN ASPART (NovoLOG) 100 UNIT/ML VIAL SQ SCH ×5 (07:52→21:43)
[2020-09-20] MEDS: ZINC SULFATE 220 MG CAP PO SCH (07:53)
[2020-09-20] MEDS: ASCORBIC ACID 500 MG TAB PO SCH ×2 (07:53→21:32)
[2020-09-20] MEDS: FAMOTIDINE 20 MG TAB PO SCH ×2 (07:53→21:32)
[2020-09-20] MEDS: GABAPENTIN 100 MG CAP PO SCH ×3 (07:53→21:32)
[2020-09-20] MEDS: HYDROmorphone 0.5 MG/0.5 ML SYRINGE IVP PRN (07:53)
[2020-09-20] MEDS: METOPROLOL SUCCINATE (ER) 25 MG TAB.ER.24H PO SCH ×2 (07:53→08:04)
[2020-09-20] MEDS: BENZONATATE 100 MG CAP PO SCH ×3 (07:53→21:32)
[2020-09-20] MEDS: CHOLECALCIFEROL 25 MCG (1000 IU) TABLET PO SCH (07:53)
[2020-09-20] MEDS: CLOTRIMAZOLE 1% CREAM 30 GM TUBE TOPICAL SCH (07:56)
[2020-09-20] MEDS: ALBUTEROL HFA INHALER INHALATION SCH ×4 (08:55→21:24)
[2020-09-20 11:17] LABS: Basophils # (A) 0.1 k/uL (0-0.2); Basophils % (A) 1 %; Eosinophils % (A) 0 %; HCT 36.1 % (34.0-46.0); HGB 12.5 gm/dL (11.4-16.0); Lymphocytes # (A) 1.3 k/uL (1.0-4.8); Lymphocytes % (A) 11 %; MCH 31.4 pg (25.0-35.0); MCHC 34.5 g/dL (31.0-37.0); MCV 90.8 fL (80.0-100.0); Mean Platelet Volume 8.1; Monocytes # (A) 0.7 k/uL (0-1.0); Monocytes % (A) 6 %; Neutrophils % (A) 80 %; Platelet Count 279 k/uL (150-450); RBC 3.97 m/uL (3.80-5.40); RDW 12.9 % (11.5-15.5); WBC 11.4 k/uL (3.8-10.6)
[2020-09-20 11:34] LABS: ALT 38 U/L (4-34); AST 38 U/L (14-36); African American GFR (CKD) >90 (>60 ml/min/1.73 sqM); Albumin 2.8 g/dL (3.5-5.0); Alkaline Phosphatase 60 U/L (38-126); Anion Gap 9 mmol/L; Blood Urea Nitrogen 34 mg/dL (7-17); Calcium 8.4 mg/dL (8.4-10.2); Carbon Dioxide 22 mmol/L (22-30); Chloride 101 mmol/L (98-107); Glucose 141 mg/dL (74-99); Magnesium 1.9 mg/dL (1.6-2.3); Non-African American GFR(CKD) 83 (>60 ml/min/1.73 sqM); Potassium 4.2 mmol/L (3.5-5.1); Sodium 132 mmol/L (137-145); Total Bilirubin 0.4 mg/dL (0.2-1.3); Total Protein 5.2 g/dL (6.3-8.2)
[2020-09-20 11:35] LABS: Glucose,Whole Blood 170 mg/dL (75-99)
[2020-09-20 11:37] LABS: Partial Thromboplastin Time 22.8 sec (22.0-30.0); Prothrombin Time 10.4 sec (9.0-12.0)
--- NOTE | 2020-09-20 14:43 | P.GSCN ---
History of Present Illness Consult date: 09/20/20 History of present illness: CHIEF COMPLAINT: Abdominal wall hematoma HISTORY OF PRESENT ILLNESS: The patient is an 85-year-old female who presented to the hospital 5 days ago on 09/15/2020 with shortness of breath including generalized weakness. She was diagnosed with COVID-19. She also presents with multiple medical comorbidities including super morbid obesity, diabetes type 2, hyperlipidemia and neurological disorder Jordana Charcot syndrome. Yesterday, patient reported having severe left upper quadrant including a left lower quadrant abdominal pain radiating along the left side of her abdomen. She does report powerful coughing spells that proceeded the event of bleeding. Yesterday, diagnostic studies were obtained demonstrating an abdominal wall hematoma. She reports her pain is tolerable. Since admission, hemoglobin is trough from 17.0 down to 12.5. No reports of blood in stools otherwise. She was on Lovenox 40 mg subcutaneous daily which is now been discontinued. General surgery is consulted for management of abdominal wall hematoma. PAST MEDICAL HISTORY: See list and reviewed PAST SURGICAL HISTORY: See list and reviewed MEDICATIONS: See list and reviewed ALLERGIES: See list and reviewed SOCIAL HISTORY: See list and reviewed FAMILY HISTORY: See list and reviewed REVIEW OF ORGAN SYSTEMS: CONSTITUTIONAL: No fevers or chills. Super morbid obesity. Patient's over 100 pounds overweight, BMI over 55. EYES: Denies any trouble with vision. No glasses. HEENT: No difficulties with hearing. No nosebleeds. No difficulty swallowing. RESPIRATORY: Has pneumonia. Has troubles with breathing or dyspnea on exertion. CARDIOVASCULAR: Has congestive heart failure. Has hypertensive heart disease. Has hyperlipidemia. GASTROINTESTINAL: Denies fatty food intolerance. Denies change in bowel habits and gas bloat. GENITOURINARY: Denies any blood in urine or increased urinary frequency. NEUROLOGICAL: Has progressive peripheral neurological disease, Jordana Charcot syndrome. No recent strokes. MUSCULOSKELETAL: Has back pain, stiffness or joint arthritis. Patient is wheelchair-bound. SKIN: No current skin cancer. No rash. Past history of MRSA infection PSYCHIATRIC: Denies current depression or suicidal thoughts. ENDOCRINE: Has hypothyroidism. Has diabetes type 2, [id number] HEME/LYMPHATIC: Denies any lumps and bumps around the neck. No recent deep venous thrombosis. ALLERGY/IMMUNOLOGY: No immunoglobulin therapy. No immune deficiencies. BREAST: Denies current breast lumps, pain or nipple discharge. PHYSICAL EXAM: VITALS: Reviewed CONSTITUTIONAL: Well developed and in no acute distress. EYES: Conjuctivae without sclera icterus. Extraocular movements grossly intact. HEAD, EARS, NOSE, THROAT: Moist buccal mucosa. Head is atraumatic, normocephalic. Hears conversational speech. No nasal drainage. NECK: Supple. No JV distention. No thyroidomegaly. RESPIRATORY: Non-labored respirations and equal bilateral excursions. No gross wheezes. CARDIOVASCULAR: Regular rate and rhythm. ABDOMEN: Tender left abdominal wall with swelling on the left upper quadrant. No peritonitis. LYMPH: No neck lymphadenopathy. MUSCULOSKELETAL: Generalized weakness. Nail and fingers with good capillary refill. SKIN: Warm and well perfused with good skin turgor. NEUROLOGIC: Cranial nerves II through XII grossly intact. Sensation upper and extremities intact. PSYCH: Appropriate affect. Alert and oriented to person, place and time. Displays appropriate insight. CLINCAL LABS: Reviewed. Hemoglobin on admission 17.0 down to 12.5. White count elevated 11.4. Coags were within normal limits. IMAGING: Independently reviewed CT of the abdomen and pelvis demonstrating abdominal wall rectus sheath hematoma extending from the left upper abdomen to the left lower abdomen. No intra-abdominal bleeding identified. This is my independent interpretation. RADIOLOGY: Report reviewed. CT of the abdomen and pelvis report confirms 25 x 20 x 9 cm abdominal wall hematoma EKG: Left axis deviation with possible anterior infarct age undetermined. Abnormal EKG. ASSESSMENT: 1. Rectus abdominal wall hematoma 2. COVID-19 positive pneumonia 3. Super morbid obesity, BMI 55.4 4. Progressive neurological disease, Margarita Charcot syndrome 5. Diabetes type 2, [id number] 6. Hypertensive heart disease with congestive heart failure PLAN: 1. Recommend and agree with discontinuing all anticoagulants including subcutaneous Lovenox. 2. Recommend compressive device such as abdominal binder to tamponade bleeding. 3. Serial hemoglobins advised. 4. Recommend medications for coughing spells as this can progress further bleeding. Thank you for this kind consultation. Past Medical History Past Medical History: Blood Disorder, Heart Failure, Diabetes Mellitus, Hyperlipidemia, Thyroid Disorder Additional Past Medical History / Comment(s): diabetes mellitus, hyperlipidemia, hypothyroidism, osteoarthritis, congestion heart failure, umbilical hernia, Jordana Charcot syndrome History of Any Multi-Drug Resistant Organisms: MRSA Year Discovered:: 2002 MDRO Source:: LEFT FOOT,LEFT SHOULDER, RIGHT HIP Past Surgical History: Appendectomy, Cholecystectomy, Hysterectomy, Joint Replacement, Orthopedic Surgery, Tonsillectomy Additional Past Surgical History / Comment(s): right hip replacement, hystere ctomy, cholecystectomy, appendectomy Past Anesthesia/Blood Transfusion Reactions: No Reported Reaction Past Psychological History: No Psychological Hx Reported Additional Psychological History / Comment(s): lives independently. Able to around by her powered wheelchair. No tobacco or alcohol use. 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 Retired animal park code enforcement officer. No experience. No international travel. No animal exposures. Up-to-date on her vaccines Smoking Status: Never smoker Past Alcohol Use History: None Reported Past Drug Use History: None Reported - Past Family History Daughter(s) History Unknown: Yes Father Family Medical History: Congestive Heart Failure (CHF), Diabetes Mellitus Additional Family Medical History / Comment(s): obesity Medications and Allergies Home Medications Medication Instructions Recorded Confirmed Type Metoprolol Succinate [Toprol XL] 25 mg PO DAILY 01/21/16 09/15/20 History traMADol HCL [Ultram] 50 mg PO Q6H PRN 08/08/18 09/15/20 History Cholecalciferol [Vitamin D3 (25 25 mcg PO DAILY 09/15/20 09/15/20 History Mcg = 1000 Iu)] Gabapentin [Neurontin] 100 mg PO TID 09/15/20 09/15/20 History Ketoconazole 2% Cream [Nizoral 2%] 1 applic TOPICAL DAILY 09/15/20 09/15/20 History Levothyroxine Sodium [Synthroid] 125 mcg PO DAILY 09/15/20 09/15/20 History Allergies Allergy/AdvReac Type Severity Reaction Status Date / Time aspirin Allergy Unknown Verified 09/15/20 19:44 codeine Allergy Nausea Verified 09/15/20 19:44 latex Allergy Unknown Verified 09/15/20 19:44 meperidine HCl [From Demerol] Allergy Rash/Hives Verified 09/15/20 19:44 morphine Allergy Unknown Verified 09/15/20 19:44 Nitrate Analogues Allergy Rash/Hives Verified 09/15/20 19:44 Sulfa (Sulfonamide Allergy Rash/Hives Verified 09/15/20 19:44 Antibiotics) tomato Allergy Rash/Hives Verified 09/15/20 19:44 Surgical - Exam Vital Signs Temp Pulse Resp BP Pulse Ox 98.7 F 104 H 22 143/95 94 L 09/15/20 12:58 09/15/20 12:58 09/15/20 12:58 09/15/20 12:58 09/15/20 12:58 Results - Labs 09/20/20 10:40 09/20/20 10:40 Abnormal Lab Results - Last 24 Hours (Table) 09/19/20 09/19/20 09/19/20 Range/Units 17:32 20:55 20:55 WBC 12.3 H (3.8-10.6) k/uL Neutrophils # 9.4 H (1.3-7.7) k/uL Sodium 133 L (137-145) mmol/L BUN 24 H (7-17) mg/dL Glucose 147 H (74-99) mg/dL POC Glucose (mg/dL) 132 H (75-99) mg/dL AST 48 H (14-36) U/L ALT 45 H (4-34) U/L Total Protein 6.0 L (6.3-8.2) g/dL Albumin 3.4 L (3.5-5.0) g/dL 09/19/20 09/20/20 09/20/20 Range/Units 21:25 06:43 10:40 WBC 11.4 H (3.8-10.6) k/uL Neutrophils # 9.0 H (1.3-7.7) k/uL Sodium (137-145) mmol/L BUN (7-17) mg/dL Glucose (74-99) mg/dL POC Glucose (mg/dL) 153 H 168 H (75-99) mg/dL AST (14-36) U/L ALT (4-34) U/L Total Protein (6.3-8.2) g/dL Albumin (3.5-5.0) g/dL 09/20/20 09/20/20 Range/Units 10:40 11:32 WBC (3.8-10.6) k/uL Neutrophils # (1.3-7.7) k/uL Sodium 132 L (137-145) mmol/L BUN 34 H (7-17) mg/dL Glucose 141 H (74-99) mg/dL POC Glucose (mg/dL) 170 H (75-99) mg/dL AST 38 H (14-36) U/L ALT 38 H (4-34) U/L Total Protein 5.2 L (6.3-8.2) g/dL Albumin 2.8 L (3.5-5.0) g/dL Microbiology - Last 24 Hours (Table) 09/17/20 13:18 Urine Culture - Final Urine,Voided Escherichia coli Diabetes panel 09/19/20 09/20/20 Range/Units 20:55 10:40 Sodium 133 L 132 L (137-145) mmol/L Potassium 4.1 4.2 (3.5-5.1) mmol/L Chloride 99 101 (98-107) mmol/L Carbon Dioxide 24 22 (22-30) mmol/L BUN 24 H 34 H (7-17) mg/dL Creatinine 0.60 0.63 (0.52-1.04) mg/dL Glucose 147 H 141 H (74-99) mg/dL Calcium 9.2 8.4 (8.4-10.2) mg/dL AST 48 H 38 H (14-36) U/L ALT 45 H 38 H (4-34) U/L Alkaline Phosphatase 83 60 (38-126) U/L Total Protein 6.0 L 5.2 L (6.3-8.2) g/dL Albumin 3.4 L 2.8 L (3.5-5.0) g/dL Calcium panel 09/19/20 09/20/20 Range/Units 20:55 10:40 Calcium 9.2 8.4 (8.4-10.2) mg/dL Albumin 3.4 L 2.8 L (3.5-5.0) g/dL Pituitary panel 09/19/20 09/20/20 Range/Units 20:55 10:40 Sodium 133 L 132 L (137-145) mmol/L Potassium 4.1 4.2 (3.5-5.1) mmol/L Chloride 99 101 (98-107) mmol/L Carbon Dioxide 24 22 (22-30) mmol/L BUN 24 H 34 H (7-17) mg/dL Creatinine 0.60 0.63 (0.52-1.04) mg/dL Glucose 147 H 141 H (74-99) mg/dL Calcium 9.2 8.4 (8.4-10.2) mg/dL Adrenal panel 09/19/20 09/20/20 Range/Units 20:55 10:40 Sodium 133 L 132 L (137-145) mmol/L Potassium 4.1 4.2 (3.5-5.1) mmol/L Chloride 99 101 (98-107) mmol/L Carbon Dioxide 24 22 (22-30) mmol/L BUN 24 H 34 H (7-17) mg/dL Creatinine 0.60 0.63 (0.52-1.04) mg/dL Glucose 147 H 141 H (74-99) mg/dL Calcium 9.2 8.4 (8.4-10.2) mg/dL Total Bilirubin 0.7 0.4 (0.2-1.3) mg/dL AST 48 H 38 H (14-36) U/L ALT 45 H 38 H (4-34) U/L Alkaline Phosphatase 83 60 (38-126) U/L Total Protein 6.0 L 5.2 L (6.3-8.2) g/dL Albumin 3.4 L 2.8 L (3.5-5.0) g/dL Assessment and Plan (1) Rectus sheath hematoma Current Visit: Yes Status: Acute Code(s): S30.1XXA - CONTUSION OF ABDOMINAL WALL, INITIAL ENCOUNTER SNOMED Code(s): 794740249 (2) Morbid obesity due to excess calories Current Visit: Yes Status: Acute Code(s): E66.01 - MORBID (SEVERE) OBESITY DUE TO EXCESS CALORIES SNOMED Code(s): 982377188 (3) Adult BMI 50.0-59.9 kg/sq m Current Visit: Yes Status: Acute Code(s): Z68.43 - BODY MASS INDEX [BMI] 50.0-59.9, ADULT SNOMED Code(s): 479352101 (4) Diabetes mellitus type 2 with complications Current Visit: Yes Status: Acute Code(s): E11.8 - TYPE 2 DIABETES MELLITUS WITH UNSPECIFIED COMPLICATIONS SNOMED Code(s): 31570321 (5) Hypertensive heart disease with congestive heart failure Current Visit: Yes Status: Acute Code(s): I11.0 - HYPERTENSIVE HEART DISEASE WITH HEART FAILURE SNOMED Code(s): 6105392 (6) Fogjfsq-Oajly-Pqwpz disease Current Visit: No Status: Acute Code(s): G60.0 - HEREDITARY MOTOR AND SENSORY NEUROPATHY SNOMED Code(s): 663740071 (7) COVID-19 Current Visit: Yes Status: Acute Code(s): U07.1 - COVID-19 SNOMED Code(s): 603188711 (8) Pneumonia due to 2019 novel coronavirus Current Visit: Yes Status: Acute Code(s): U07.1 - COVID-19; J12.82 - Pneumonia due to coronavirus disease 2018 SNOMED Code(s): 499050317772662229
[2020-09-20] MEDS: traMADol 50 MG TAB PO PRN ×2 (15:09→21:38)
[2020-09-20 16:53] LABS: Glucose,Whole Blood 127 mg/dL (75-99)
--- NOTE | 2020-09-20 19:02 | PN ---
PROGRESS NOTE DATE OF SERVICE: 09/20/2020 REASON FOR FOLLOWUP: COVID-19 pneumonia. INTERVAL HISTORY: The patient is afebrile, has been complaining of not feeling well; weak and tired. She continues to have a cough; no worsening, though. No worsening shortness of breath. No abdominal pain or diarrhea. The patient is currently on room air. PHYSICAL EXAMINATION: Blood pressure 123/62 with a pulse of 81, temperature 97.3. She is 94% on room air. General description is an elderly female lying in bed in no distress. RESPIRATORY SYSTEM: Unlabored breathing. Clear to auscultation anteriorly. HEART: S1, S2. Regular rate and rhythm. ABDOMEN: Soft. No tenderness. LABS: Hemoglobin is 12.5, white count 11.4, BUN of 34, creatinine 0.63. DIAGNOSTIC IMPRESSION AND PLAN: Patient with acute COVID-19 pneumonia in this patient who has shown overall clinical improvement. Patient is currently on room air. Patient to continue with dexamethasone, zinc, ascorbic acid. Lovenox has been discontinued because of the abdominal wall hematoma. Surgery is following the patient. Continue with supportive care. MMODL / IJN: [id number] / MTDD
[2020-09-20 20:00] LABS: Glucose,Whole Blood 149 mg/dL (75-99)
[2020-09-20] MEDS: DEXAMETHASONE SOD PHOSPHATE 10 MG/ML 1 ML VIAL IV SCH (21:31)
[2020-09-21] MEDS: traMADol 50 MG TAB PO PRN ×4 (04:46→23:36)
[2020-09-21] MEDS: SODIUM CHLORIDE 0.9% 1,000 ML IV SCH ×2 (05:45→18:07)
[2020-09-21] MEDS: LEVOTHYROXINE 125 MCG TAB PO SCH (06:18)
[2020-09-21 08:09] LABS: Glucose,Whole Blood 130 mg/dL (75-99)
[2020-09-21] MEDS: INSULIN ASPART (NovoLOG) 100 UNIT/ML VIAL SQ SCH ×4 (08:36→21:00)
[2020-09-21] MEDS: CHOLECALCIFEROL 25 MCG (1000 IU) TABLET PO SCH (08:43)
[2020-09-21] MEDS: ZINC SULFATE 220 MG CAP PO SCH (08:43)
[2020-09-21] MEDS: ASCORBIC ACID 500 MG TAB PO SCH ×2 (08:43→20:53)
[2020-09-21] MEDS: GABAPENTIN 100 MG CAP PO SCH ×3 (08:43→20:53)
[2020-09-21] MEDS: METOPROLOL SUCCINATE (ER) 25 MG TAB.ER.24H PO SCH (08:43)
[2020-09-21] MEDS: FAMOTIDINE 20 MG TAB PO SCH ×2 (08:43→20:53)
[2020-09-21] MEDS: BENZONATATE 100 MG CAP PO SCH ×3 (08:44→21:15)
[2020-09-21] MEDS: ACETAMINOPHEN TAB 325 MG TAB PO PRN ×2 (08:53→21:15)
[2020-09-21] MEDS: ALBUTEROL HFA INHALER INHALATION SCH ×4 (09:46→20:05)
[2020-09-21] MEDS: CLOTRIMAZOLE 1% CREAM 30 GM TUBE TOPICAL SCH (11:33)
[2020-09-21 12:05] LABS: Glucose,Whole Blood 100 mg/dL (75-99)
--- NOTE | 2020-09-21 15:56 | P.PN ---
Subjective Progress Note Date: 09/21/20 CHIEF COMPLAINT: Abdominal wall hematoma HISTORY OF PRESENT ILLNESS: The patient is an 85-year-old female who presented to the hospital 09/15/2020 with shortness of breath including generalized weakness. She was diagnosed with COVID-19. She was on Lovenox 40 mg subcutaneous daily and developed an abdominal wall hematoma. She reports feeling better today after placement of her abdominal binder. Her abdominal pain along the left side is aggravated only when she coughs. She is off blood thinners. REVIEW OF ORGAN SYSTEMS: Has chronic cough. BMI over 50, morbid obesity, no chest pain. PHYSICAL EXAM: VITALS: Reviewed CONSTITUTIONAL: Well developed and in no acute distress. EYES: Conjuctivae without sclera icterus. Extraocular movements grossly intact. HEAD, EARS, NOSE, THROAT: Moist buccal mucosa. Head is atraumatic, normocephalic. Hears conversational speech. No nasal drainage. RESPIRATORY: Non-labored respirations and equal bilateral excursions. CARDIOVASCULAR: Regular rate and rhythm. ABDOMEN: No peritonitis MUSCULOSKELETAL: Generalized weakness. SKIN: Warm and well perfused with good skin turgor. NEUROLOGIC: Cranial nerves II through XII grossly intact. Sensation upper and extremities intact. PSYCH: Appropriate affect. Alert and oriented to person, place and time. Displays appropriate insight. CLINCAL LABS: No new labs ASSESSMENT: 1. Rectus abdominal wall hematoma 2. COVID-19 positive pneumonia 3. Super morbid obesity, BMI 55.4 4. Progressive neurological disease, Margarita Charcot syndrome 5. Diabetes type 2, [id number] 6. Hypertensive heart disease with congestive heart failure PLAN: 1. Continue off blood thinners at least for 72 hours. 2. Recommend re-check of Hgb in the time frame. 3. Recommend cough suppressants. Objective - Vital Signs Vital signs: Vital Signs Temp 97.7 F 09/21/20 08:00 Pulse 85 09/21/20 08:00 Resp 17 09/21/20 08:00 BP 130/65 09/21/20 12:35 Pulse Ox 95 09/21/20 12:35 Intake & Output 09/20/20 09/21/20 09/21/20 18:59 06:59 18:59 Intake Total 1400 900 Output Total 500 Balance 1400 900 -500 Intake: Intake, IV Titration 1400 900 Amount Sodium Chloride 0.9% 1, 900 000 ml @ 75 mls/hr IV . [id number] [facility] Rx#:[id number] Sodium Chloride 0.9% 500 500 900 ml 500 ml @ 999 mls/hr IV .Q31M ONE Rx#:[id number] Output: Urine 500 Other: Voiding Method External Catheter External Catheter # Voids 1 1 # Bowel Movements 1 1 - Labs CBC & Chem 7: 09/25/20 07:47 09/25/20 07:47 Labs: Abnormal Lab Results - Last 24 Hours (Table) 09/20/20 09/20/20 09/21/20 Range/Units 16:51 19:49 08:07 POC Glucose (mg/dL) 127 H 149 H 130 H (75-99) mg/dL 09/21/20 Range/Units 12:03 POC Glucose (mg/dL) 100 H (75-99) mg/dL Assessment and Plan (1) Rectus sheath hematoma Status: Acute Code(s): S30.1XXA - CONTUSION OF ABDOMINAL WALL, INITIAL ENCOUNTER SNOMED Code(s): 670283240 (2) Morbid obesity due to excess calories Status: Acute Code(s): E66.01 - MORBID (SEVERE) OBESITY DUE TO EXCESS CALORIES SNOMED Code(s): 334288923 (3) Adult BMI 50.0-59.9 kg/sq m Status: Acute Code(s): Z68.43 - BODY MASS INDEX [BMI] 50.0-59.9, ADULT SNOMED Code(s): 716756080 (4) Diabetes mellitus type 2 with complications Status: Acute Code(s): E11.8 - TYPE 2 DIABETES MELLITUS WITH UNSPECIFIED COMPLICATIONS SNOMED Code(s): 36281501 (5) Hypertensive heart disease with congestive heart failure Status: Acute Code(s): I11.0 - HYPERTENSIVE HEART DISEASE WITH HEART FAILURE SNOMED Code(s): 1589629 (6) Egkrkuc-Dlkye-Elfxv disease Status: Acute Code(s): G60.0 - HEREDITARY MOTOR AND SENSORY NEUROPATHY SNOMED Code(s): 929367403 (7) COVID-19 Status: Acute Code(s): U07.1 - COVID-19 SNOMED Code(s): 009013420 (8) Pneumonia due to 2019 novel coronavirus Status: Acute Code(s): U07.1 - COVID-19; J12.82 - Pneumonia due to coronavirus disease 2019 SNOMED Code(s): 863758523629914652
[2020-09-21 17:02] LABS: Glucose,Whole Blood 132 mg/dL (75-99)
--- NOTE | 2020-09-21 17:54 | PN ---
PROGRESS NOTE DATE OF SERVICE: 09/21/2020. REASON FOR FOLLOW UP: Covid 19 infection. INTERVAL HISTORY: The patient is currently afebrile. The patient is breathing slightly comfortably. She continues to have a cough with occasional sputum. Still complaining of abdominal pain. No vomiting though or diarrhea. EXAMINATION: Blood pressure 127/83, pulse of 88, temperature 97.7. She is 93% on 2 L nasal cannula. General description is an elderly female lying in bed in no distress. Respiratory system: Unlabored breathing, clear to auscultation anteriorly. Heart S1, S2. Regular rate and rhythm. ABDOMEN: Soft, mildly tender. No guarding. No rigidity. LABS: No new labs have been obtained today. DIAGNOSTIC IMPRESSION AND PLAN: Patient with acute COVID-19 infection. The patient has shown overall clinical improvement. As far as respiratory status is concerned, the patient is currently on Decadron, zinc and ascorbic acid. Lovenox discontinued because of the abdominal wall hematoma. Will monitor closely and continue supportive care. MMODL / IJN: [id number] /
[2020-09-21] MEDS: BENZOCAINE/MENTHOL LOZENG 1 EACH LOZENGE MUCOUS MEM PRN (18:06)
[2020-09-21] MEDS: DEXAMETHASONE SOD PHOSPHATE 10 MG/ML 1 ML VIAL IV SCH (20:53)
[2020-09-21 21:19] LABS: Glucose,Whole Blood 117 mg/dL (75-99)
[2020-09-22] MEDS: traMADol 50 MG TAB PO PRN ×4 (05:41→22:04)
[2020-09-22] MEDS: LEVOTHYROXINE 125 MCG TAB PO SCH (06:04)
[2020-09-22] MEDS: ALBUTEROL HFA INHALER INHALATION SCH ×4 (07:34→19:44)
[2020-09-22 07:57] LABS: Glucose,Whole Blood 179 mg/dL (75-99)
[2020-09-22] MEDS: SODIUM CHLORIDE 0.9% 1,000 ML IV SCH ×2 (08:42→22:11)
[2020-09-22] MEDS: INSULIN ASPART (NovoLOG) 100 UNIT/ML VIAL SQ SCH ×4 (08:42→21:44)
[2020-09-22] MEDS: BENZONATATE 100 MG CAP PO SCH ×3 (08:43→22:12)
[2020-09-22] MEDS: ACETAMINOPHEN TAB 325 MG TAB PO PRN (08:43)
[2020-09-22] MEDS: GABAPENTIN 100 MG CAP PO SCH ×3 (08:44→22:04)
[2020-09-22] MEDS: ASCORBIC ACID 500 MG TAB PO SCH ×2 (08:44→22:05)
[2020-09-22] MEDS: CHOLECALCIFEROL 25 MCG (1000 IU) TABLET PO SCH (08:44)
[2020-09-22] MEDS: ZINC SULFATE 220 MG CAP PO SCH (08:44)
[2020-09-22] MEDS: METOPROLOL SUCCINATE (ER) 25 MG TAB.ER.24H PO SCH (08:44)
[2020-09-22] MEDS: FAMOTIDINE 20 MG TAB PO SCH ×2 (08:44→22:05)
[2020-09-22] MEDS: CLOTRIMAZOLE 1% CREAM 30 GM TUBE TOPICAL SCH (08:45)
[2020-09-22] MEDS: BENZOCAINE/MENTHOL LOZENG 1 EACH LOZENGE MUCOUS MEM PRN ×2 (11:35→15:59)
[2020-09-22 11:59] LABS: Glucose,Whole Blood 126 mg/dL (75-99)
--- NOTE | 2020-09-22 15:55 | P.PN ---
Subjective Progress Note Date: 09/22/20 CHIEF COMPLAINT: Abdominal wall hematoma HISTORY OF PRESENT ILLNESS: The patient is an 85-year-old female who presented to the hospital with COVID-19 and developed abdominal wall hematoma from her Lovenox. She complains of left lower quadrant abdominal pain that is tolerable. Her pain is worse with coughing. She is on Tessalon pearls that is helping with her coughing. REVIEW OF ORGAN SYSTEMS: Has chronic cough. BMI over 50, morbid obesity, no chest pain. PHYSICAL EXAM: VITALS: Reviewed CONSTITUTIONAL: Well developed and in no acute distress. EYES: Conjuctivae without sclera icterus. Extraocular movements grossly intact. HEAD, EARS, NOSE, THROAT: Moist buccal mucosa. Head is atraumatic, n ormocephalic. Hears conversational speech. No nasal drainage. RESPIRATORY: Non-labored respirations and equal bilateral excursions. CARDIOVASCULAR: Regular rate and rhythm. ABDOMEN: Tender left abdominal wall. No peritonitis. MUSCULOSKELETAL: Generalized weakness. SKIN: Warm and well perfused with good skin turgor. NEUROLOGIC: Cranial nerves II through XII grossly intact. Sensation upper and extremities intact. PSYCH: Appropriate affect. Alert and oriented to person, place and time. Di splays appropriate insight. CLINCAL LABS: No new labs ASSESSMENT: 1. Rectus abdominal wall hematoma 2. COVID-19 positive pneumonia 3. Super morbid obesity, BMI 55.4 4. Progressive neurological disease, Margarita Charcot syndrome 5. Diabetes type 2, [id number]-tjjvpshdx 6. Hypertensive heart disease with congestive heart failure PLAN: 1. Re-check hemoglobin for tomorrow. 2. Continue abdominal binder. Objective - Vital Signs Vital signs: Vital Signs Temp 96.2 F L 09/22/20 12:00 Pulse 71 09/22/20 12:00 Resp 20 09/22/20 12:00 BP 132/73 09/22/20 12:00 Pulse Ox 96 09/22/20 12:00 Intake & Output 09/21/20 09/22/20 09/22/20 18:59 06:59 18:59 Intake Total 1705 480 Output Total 500 1900 1750 Balance 1205 -1420 -1750 Intake: Intake, IV Titration 825 Amount Sodium Chloride 0.9% 1, 825 000 ml @ 75 mls/hr IV . [id number] [facility] Rx#:[id number] Oral 880 480 Output: Urine 500 1900 1750 Other: Voiding Method External Catheter External Catheter # Voids 2 2 # Bowel Movements 1 1 - Labs CBC & Chem 7: 09/25/20 07:47 09/25/20 07:47 Labs: Abnormal Lab Results - Last 24 Hours (Table) 09/21/20 09/21/20 09/22/20 Range/Units 17:01 21:18 07:33 POC Glucose (mg/dL) 132 H 117 H 179 H (75-99) mg/dL 09/22/20 Range/Units 11:49 POC Glucose (mg/dL) 126 H (75-99) mg/dL Assessment and Plan (1) Rectus sheath hematoma Status: Acute Code(s): S30.1XXA - CONTUSION OF ABDOMINAL WALL, INITIAL ENCOUNTER SNOMED Code(s): 044622339 (2) Morbid obesity due to excess calories Status: Acute Code(s): E66.01 - MORBID (SEVERE) OBESITY DUE TO EXCESS CALORIES SNOMED Code(s): 284806070 (3) Adult BMI 50.0-59.9 kg/sq m Status: Acute Code(s): Z68.43 - BODY MASS INDEX [BMI] 50.0-59.9, ADULT SNOMED Code(s): 334483318 (4) Diabetes mellitus type 2 with complications Status: Acute Code(s): E11.8 - TYPE 2 DIABETES MELLITUS WITH UNSPECIFIED COMPLICATIONS SNOMED Code(s): 36440759 (5) Hypertensive heart disease with congestive heart failure Status: Acute Code(s): I11.0 - HYPERTENSIVE HEART DISEASE WITH HEART FAILURE SNOMED Code(s): 5505181 (6) Gchfwjf-Kufnz-Gurmb disease Status: Acute Code(s): G60.0 - HEREDITARY MOTOR AND SENSORY NEUROPATHY SNOMED Code(s): 783932248 (7) COVID-19 Status: Acute Code(s): U07.1 - COVID-19 SNOMED Code(s): 725520185 (8) Pneumonia due to 2019 novel coronavirus Status: Acute Code(s): U07.1 - COVID-19; J12.82 - Pneumonia due to coronavirus disease 2019 SNOMED Code(s): 514274419165740082
[2020-09-22 16:57] LABS: Glucose,Whole Blood 114 mg/dL (75-99)
--- NOTE | 2020-09-22 17:10 | PN ---
PROGRESS NOTE DATE OF SERVICE: 09/22/2020 REASON FOR FOLLOWUP: COVID-19 infection. INTERVAL HISTORY: Patient is currently afebrile. The patient mentioned she is feeling slightly better. However, could be better. Denies any chest pain. She did have a cough and is bringing up some sputum. No vomiting. No worsening abdominal pain or diarrhea. PHYSICAL EXAMINATION: Blood pressure 122/73 with a pulse of 71, temperature 96.2. She is 93% on 2 L nasal cannula. General description is an elderly female lying in bed in no distress. Respiratory system: Unlabored breathing, clear to auscultation anteriorly. Heart S1, S2. Regular rate and rhythm. Abdomen: Soft, no tenderness. LABS: No new labs have been obtained today. DIAGNOSTIC IMPRESSION/PLAN: Patient with acute COVID-19 infection in this patient who seemed to have shown overall clinical improvement with supportive treatment, Dexamethasone, Lovenox which has been put on hold because of the rectus sheath hematoma, zinc and ascorbic acid. Continue supportive care. MMODL / IJN: [id number] /
[2020-09-22 21:31] LABS: Glucose,Whole Blood 126 mg/dL (75-99)
[2020-09-22] MEDS: DEXAMETHASONE SOD PHOSPHATE 10 MG/ML 1 ML VIAL IV SCH (22:03)
--- NOTE | 2020-09-23 00:11 | P.PN ---
Subjective Progress Note Date: 09/21/20 Principal diagnosis: covid 19 infection generalized weakness Dyspnea Urinary tract infection Left abdominal wall hematoma see dictation from CT abdomen and pelvis for measurements 85-year-old female was admitted to the hospital for generalized weakness and shortness of breath with associated nonproductive cough patient had extensive diagnostic workup in the emergency department revealing a covid- 19 infection.she has significant medical history of rheumatoid arthritis, charcot yahir tooth, heart failure, diabetes mellitus, hyperlipidemia, thyroid disorder, thyroid disorder, and it inability to ambulate due to debilitating rheumatoid arthritis. Patient was evaluated this a.m. resting comfortably in bed on 2 L of oxygen saturations 92-94%. Patient continues to endorse chills, shortness of breath on exertion, and generalized weakness. 09/18/2020 Patient resting comfortably in bed, patient continues to endorse chills, shortness of breath, dyspnea on exertion, mid chest discomfort, and generalized weakness. oxygen saturation on 2 L patient is from 93-95%. She continues to benefit from covid 19 treatments. Patient's been having elevated blood pressure will start Cozaar 50 mg by mouth daily to see response. adding additional albuterol for shortness of breath .Awaiting diagnostic labs this a.m. and urine culture 09/19/2020 Evaluated patient this a.m., resting comfortably in bed. Patient endorses chills, shortness of breath, dyspnea on exertion, dysuria and generalized weakness. she continues to benefit from Covid 19 treatments. Patient's blood pressure is stabilizing with Cozaar 50 mg by mouth daily. Preliminary urinary culture came back gram-negative bacilli-with a count of 50,000 to 100,000due to patient's symptomatic dysuriaand urine cultureRocephin 1 g IV piggyback has been initiated. She states her breathing has improved with albuterol inhaler and use of incentive spirometer. Patient's oxygen saturation 93-95% on 1.5 L. Awaiting on diagnostic labs this a.m. and final chest x-ray reading 09/20/2020 Elevated patient this a.m., patient resting in bed with mild discomfort noted to the abdomen. Patient had CT abdomen and pelvis last night with resulting abdominal wall hematoma. Surgery was consulted for recommendations and treatment plan. she had episodes of low blood pressure given normal saline 500 mL bolus and increase rate to 75 ML's per hour. Upon evaluation this a.m. patient's blood pressure still low 90s to 100 systolic another 500 mL bolus to be given. Discontinued blood pressure meds at this time. H&H continue to be stable. Patient's breathing to be unlabored and decreased work of breathingoxygen saturation on 2 L 96%. Discontinue Lovenox due to left abdominal wall hematoma.continue consultation with infectious disease for Covid 19 infection. Awaiting surgical recommendations and treatment plan for her left abdominal wall hematoma. 09/21/2020 Admitted for Covid pneumonia and UTI Patient is currently lying in bed comfortably. No complaints of chest pain. Shortness of breath is improving. Patient was seen by general surgery due to abdominal wall hematoma and required off blood thinners for at least 72 hours. Follow-up hemoglobin level. Otherwise patient is being continued on dexamethasone, gentle IV hydration and antibiotics in the form of ceftriaxone and multivitamins. Patient has been afebrile. Blood pressure fairly controlled. Urine culture showed gram-negative bacilli. Current medications reviewed. Objective - Vital Signs Vital signs: Vital Signs Temp 97.7 F 09/21/20 08:00 Pulse 88 09/21/20 16:00 Resp 17 09/21/20 08:00 BP 127/83 09/21/20 16:00 Pulse Ox 96 09/21/20 16:00 Intake & Output 09/20/20 09/21/20 09/21/20 18:59 06:59 18:59 Intake Total 1400 900 Output Total 500 Balance 1400 900 -500 Intake: Intake, IV Titration 1400 900 Amount Sodium Chloride 0.9% 1, 900 000 ml @ 75 mls/hr IV . [id number] [facility] Rx#:[id number] Sodium Chloride 0.9% 500 500 900 ml 500 ml @ 999 mls/hr IV .Q31M [facility] Rx#:[id number] Output: Urine 500 Other: Voiding Method External Catheter External Catheter # Voids 1 1 # Bowel Movements 1 1 - Exam - Constitutional General appearance: Present: mild distress - EENT Eyes: Present: EOMI, PERRLA ENT: Present: normal oropharynx Ears: bilateral: normal - Neck Neck: Present: normal ROM Carotids: bilateral: upstroke normal Thyroid: bilateral: normal size - Respiratory Respiratory: bilateral: CTA (Anterior lung amin), diminished (Posterior lung amin) - Cardiovascular Details: Sinus rhythm Heart rate: 87 Rhythm: regular Heart sounds: normal: S1, S2 - Peripheral pulses dorsalis pedis Peripheral Pulses: bilateral: Normal radial pulse Peripheral Pulses: bilateral: Normal - Gastrointestinal General gastrointestinal: Present: normal bowel sounds, tenderness Localized gastrointestinal: tender: diffuse, mass: LUQ - Integumentary Integumentary: Present: pale - Neurologic Neurologic: Present: CNII-XII intact - Musculoskeletal Musculoskeletal: Present: generalized weakness - Psychiatric Psychiatric: Present: A&O x's 3, appropriate affect, intact judgment & insight - Allied health notes Allied health notes reviewed: nursing - Labs CBC & Chem 7: 09/20/20 10:40 09/20/20 10:40 Labs: Abnormal Lab Results - Last 24 Hours (Table) 09/20/20 09/20/20 09/21/20 Range/Units 16:51 19:49 08:07 POC Glucose (mg/dL) 127 H 149 H 130 H (75-99) mg/dL 09/21/20 Range/Units 12:03 POC Glucose (mg/dL) 100 H (75-99) mg/dL Assessment and Plan Assessment: Covid 19 infectioncontinue covid 19 cocktail Patient will be continued on dexamethasone, multivitamins and Lovenox is on hold Due to abdominal wall hematoma. Urine culture positive for gram-negative bacilliRocephin 1 g every 24 hours IV piggyback Left abdominal wall hematomaconsult surgery for recommendations and treatment plan Episodes of hypotension-most saline boluses of 500 mL 2hold blood pressure me ds at this time Rheumatoid arthritis continue analgesics as needed, and physical therapy Hyperlipidemia continue home medications diabetes mellitus type 2-continue to monitor blood sugars Hypothyroidismcontinue medications Continue to monitor vital signs and diagnostic labs, and chest x-ray Continue medical management Further recommendations to come based on patient's clinical condition Time with Patient: Greater than 30
--- NOTE | 2020-09-23 00:14 | P.PN ---
Subjective Progress Note Date: 09/22/20 Principal diagnosis: covid 19 infection generalized weakness Dyspnea Urinary tract infection Left abdominal wall hematoma see dictation from CT abdomen and pelvis for measurements 85-year-old female was admitted to the hospital for generalized weakness and shortness of breath with associated nonproductive cough patient had extensive diagnostic workup in the emergency department revealing a covid- 19 infection.she has significant medical history of rheumatoid arthritis, charcot yahir tooth, heart failure, diabetes mellitus, hyperlipidemia, thyroid disorder, thyroid disorder, and it inability to ambulate due to debilitating rheumatoid arthritis. Patient was evaluated this a.m. resting comfortably in bed on 2 L of oxygen saturations 92-94%. Patient continues to endorse chills, shortness of breath on exertion, and generalized weakness. 09/18/2020 Patient resting comfortably in bed, patient continues to endorse chills, shortness of breath, dyspnea on exertion, mid chest discomfort, and generalized weakness. oxygen saturation on 2 L patient is from 93-95%. She continues to benefit from covid 19 treatments. Patient's been having elevated blood pressure will start Cozaar 50 mg by mouth daily to see response. adding additional albuterol for shortness of breath .Awaiting diagnostic labs this a.m. and urine culture 09/19/2020 Evaluated patient this a.m., resting comfortably in bed. Patient endorses chills, shortness of breath, dyspnea on exertion, dysuria and generalized weakness. she continues to benefit from Covid 19 treatments. Patient's blood pressure is stabilizing with Cozaar 50 mg by mouth daily. Preliminary urinary culture came back gram-negative bacilli-with a count of 50,000 to 100,000due to patient's symptomatic dysuriaand urine cultureRocephin 1 g IV piggyback has been initiated. She states her breathing has improved with albuterol inhaler and use of incentive spirometer. Patient's oxygen saturation 93-95% on 1.5 L. Awaiting on diagnostic labs this a.m. and final chest x-ray reading 09/20/2020 Elevated patient this a.m., patient resting in bed with mild discomfort noted to the abdomen. Patient had CT abdomen and pelvis last night with resulting abdominal wall hematoma. Surgery was consulted for recommendations and treatment plan. she had episodes of low blood pressure given normal saline 500 mL bolus and increase rate to 75 ML's per hour. Upon evaluation this a.m. patient's blood pressure still low 90s to 100 systolic another 500 mL bolus to be given. Discontinued blood pressure meds at this time. H&H continue to be stable. Patient's breathing to be unlabored and decreased work of breathingoxygen saturation on 2 L 96%. Discontinue Lovenox due to left abdominal wall hematoma.continue consultation with infectious disease for Covid 19 infection. Awaiting surgical recommendations and treatment plan for her left abdominal wall hematoma. 09/21/2020 Admitted for Covid pneumonia and UTI Patient is currently lying in bed comfortably. No complaints of chest pain. Shortness of breath is improving. Patient was seen by general surgery due to abdominal wall hematoma and required off blood thinners for at least 72 hours. Follow-up hemoglobin level. Otherwise patient is being continued on dexamethasone, gentle IV hydration and antibiotics in the form of ceftriaxone and multivitamins. Patient has been afebrile. Blood pressure fairly controlled. Urine culture showed gram-negative bacilli. 09/22/2020 Patient is currently lying in bed comfortably. No complaints of chest pain. Breathing status is improving. Currently on 2 L oxygen via nasal cannula. Patient has been afebrile. No bleeding from the hematoma site. Blood thinners are continued to be on hold. Urine culture showed E. coli which is pansensitive and is being continued ceftriaxone. Patient is being continued on dexamethasone and multivitamins and follow-up CBC and BMP tomorrow.Anticipate discharge to rehab versus home with home PT Current medications reviewed. Objective - Vital Signs Vital signs: Vital Signs Temp 96.2 F L 09/22/20 12:00 Pulse 71 09/22/20 12:00 Resp 20 09/22/20 12:00 BP 132/73 09/22/20 12:00 Pulse Ox 96 09/22/20 12:00 Intake & Output 09/21/20 09/22/20 09/22/20 18:59 06:59 18:59 Intake Total 1705 480 Output Total 500 1900 1750 Balance 1205 -1420 -1750 Intake: Intake, IV Titration 825 Amount Sodium Chloride 0.9% 1, 825 000 ml @ 75 mls/hr IV . [id number] [facility] Rx#:[id number] Oral 880 480 Output: Urine 500 1900 1750 Other: Voiding Method External Catheter External Catheter # Voids 2 2 # Bowel Movements 1 1 - Exam - Constitutional General appearance: Present: mild distress - EENT Eyes: Present: EOMI, PERRLA ENT: Present: normal oropharynx Ears: bilateral: normal - Neck Neck: Present: normal ROM Carotids: bilateral: upstroke normal Thyroid: bilateral: normal size - Respiratory Respiratory: bilateral: CTA (Anterior lung amin), diminished (Posterior lung amin) - Cardiovascular Details: Sinus rhythm Heart rate: 87 Rhythm: regular Heart sounds: normal: S1, S2 - Peripheral pulses dorsalis pedis Peripheral Pulses: bilateral: Normal radial pulse Peripheral Pulses: bilateral: Normal - Gastrointestinal General gastrointestinal: Present: normal bowel sounds, tenderness Localized gastrointestinal: tender: diffuse, mass: LUQ - Integumentary Integumentary: Present: pale - Neurologic Neurologic: Present: CNII-XII intact - Musculoskeletal Musculoskeletal: Present: generalized weakness - Psychiatric Psychiatric: Present: A&O x's 3, appropriate affect, intact judgment & insight - Allied health notes Allied health notes reviewed: nursing - Labs CBC & Chem 7: 09/20/20 10:40 09/20/20 10:40 Labs: Abnormal Lab Results - Last 24 Hours (Table) 09/21/20 09/21/20 09/22/20 Range/Units 17:01 21:18 07:33 POC Glucose (mg/dL) 132 H 117 H 179 H (75-99) mg/dL 09/22/20 Range/Units 11:49 POC Glucose (mg/dL) 126 H (75-99) mg/dL Assessment and Plan Assessment: Covid 19 infectioncontinue covid 19 cocktail Patient will be continued on dexamethasone, multivitamins and Lovenox is on hold Due to abdominal wall hematoma. Urine culture positive for gram-negative bacilliRocephin 1 g every 24 hours IV piggyback Left abdominal wall hematomaconsult surgery for recommendations and treatment plan Episodes of hypotension-most saline boluses of 500 mL 2hold blood pressure meds at this time Rheumatoid arthritis continue analgesics as needed, and physical therapy Hyperlipidemia continue home medications diabetes mellitus type 2-continue to monitor blood sugars Hypothyroidismcontinue medications Continue to monitor vital signs and diagnostic labs, and chest x-ray Continue medical management Further recommendations to come based on patient's clinical condition Time with Patient: Greater than 30
[2020-09-23] MEDS: traMADol 50 MG TAB PO PRN ×3 (05:22→23:39)
[2020-09-23] MEDS: LEVOTHYROXINE 125 MCG TAB PO SCH (05:43)
[2020-09-23 07:58] LABS: Glucose,Whole Blood 143 mg/dL (75-99)
[2020-09-23 08:14] LABS: Basophils % (A) 0 %; Eosinophils % (A) 0 %; HCT 30.6 % (34.0-46.0); HGB 10.8 gm/dL (11.4-16.0); Lymphocytes # (A) 0.8 k/uL (1.0-4.8); Lymphocytes % (A) 7 %; MCH 31.8 pg (25.0-35.0); MCHC 35.3 g/dL (31.0-37.0); MCV 90.2 fL (80.0-100.0); Mean Platelet Volume 7.5; Monocytes # (A) 0.5 k/uL (0-1.0); Monocytes % (A) 5 %; Neutrophils # (A) 9.2 k/uL (1.3-7.7); Neutrophils % (A) 87 %; Platelet Count 329 k/uL (150-450); RBC 3.39 m/uL (3.80-5.40); RDW 13.2 % (11.5-15.5); WBC 10.6 k/uL (3.8-10.6)
[2020-09-23] MEDS: ALBUTEROL HFA INHALER INHALATION SCH ×4 (08:17→21:01)
[2020-09-23 08:31] LABS: African American GFR (CKD) >90 (>60 ml/min/1.73 sqM); Anion Gap 6 mmol/L; Blood Urea Nitrogen 16 mg/dL (7-17); C Reactive Protein 1.3 mg/dL (<1.0); Calcium 8.7 mg/dL (8.4-10.2); Carbon Dioxide 27 mmol/L (22-30); Chloride 99 mmol/L (98-107); Glucose 131 mg/dL (74-99); Non-African American GFR(CKD) >90 (>60 ml/min/1.73 sqM); Potassium 4.5 mmol/L (3.5-5.1); Sodium 132 mmol/L (137-145)
[2020-09-23] MEDS: ASCORBIC ACID 500 MG TAB PO SCH ×2 (09:20→20:43)
[2020-09-23] MEDS: CHOLECALCIFEROL 25 MCG (1000 IU) TABLET PO SCH (09:20)
[2020-09-23] MEDS: ZINC SULFATE 220 MG CAP PO SCH (09:20)
[2020-09-23] MEDS: BENZONATATE 100 MG CAP PO SCH ×3 (09:21→20:44)
[2020-09-23] MEDS: METOPROLOL SUCCINATE (ER) 25 MG TAB.ER.24H PO SCH (09:21)
[2020-09-23] MEDS: CLOTRIMAZOLE 1% CREAM 30 GM TUBE TOPICAL SCH (09:22)
[2020-09-23] MEDS: INSULIN ASPART (NovoLOG) 100 UNIT/ML VIAL SQ SCH ×4 (09:24→20:35)
[2020-09-23] MEDS: FAMOTIDINE 20 MG TAB PO SCH ×2 (09:58→20:43)
[2020-09-23] MEDS: GABAPENTIN 100 MG CAP PO SCH ×3 (09:58→20:44)
[2020-09-23] MEDS: SODIUM CHLORIDE 0.9% 1,000 ML IV SCH ×2 (10:24→23:23)
[2020-09-23 11:41] VITALS: BMI 55.4
[2020-09-23 12:04] LABS: Glucose,Whole Blood 99 mg/dL (75-99)
--- NOTE | 2020-09-23 12:20 | P.PN ---
Subjective Progress Note Date: 09/23/20 Patient reports of abdominal soreness of the left lower quadrant. Hemoglobin demonstrates decline over 1 g. Otherwise, she reports chronic cough. ABDOMEN: Tender left abdominal wall. No peritonitis. LABS: Reviewed ASSESSMENT: 1. Abdominal wall hematoma PLAN: 1. Recommend continue abdominal binder. 2. May need additional cough suppressant 3. No surgical intervention planned as she is extremely high risk 4. Stable for discharge when medically stable. Objective - Vital Signs Vital signs: Vital Signs Temp 96.2 F L 09/23/20 08:25 Pulse 80 09/23/20 08:25 Resp 18 09/23/20 08:25 BP 144/89 09/23/20 08:25 Pulse Ox 96 09/23/20 08:25 Intake & Output 09/22/20 09/23/20 09/23/20 18:59 06:59 18:59 Intake Total 1910 Output Total 3150 1999 Balance -1239 Weight 92.986 kg Intake: Intake, IV Titration 50 Amount cefTRIAXone 1 gm In 50 Sodium Chloride 0.9% 50 ml @ 100 mls/hr IVPB Q24HR [facility] Rx#:[id number] Oral 1860 Output: Urine 3150 1999 Other: Voiding Method External Catheter Diaper External Catheter # Voids 1 1 # Bowel Movements 1 - Labs CBC & Chem 7: 09/23/20 07:55 09/23/20 07:55 Labs: Abnormal Lab Results - Last 24 Hours (Table) 09/22/20 09/22/20 09/23/20 Range/Units 16:55 21:19 07:55 RBC 3.39 L (3.80-5.40) m/uL Hgb 10.8 L (11.4-16.0) gm/dL Hct 30.6 L (34.0-46.0) % Neutrophils # 9.2 H (1.3-7.7) k/uL Lymphocytes # 0.8 L (1.0-4.8) k/uL Sodium (137-145) mmol/L Creatinine (0.52-1.04) mg/dL Glucose (74-99) mg/dL POC Glucose (mg/dL) 114 H 126 H (75-99) mg/dL C-Reactive Protein (<1.0) mg/dL 09/23/20 09/23/20 Range/Units 07:55 07:57 RBC (3.80-5.40) m/uL Hgb (11.4-16.0) gm/dL Hct (34.0-46.0) % Neutrophils # (1.3-7.7) k/uL Lymphocytes # (1.0-4.8) k/uL Sodium 132 L (137-145) mmol/L Creatinine 0.43 L (0.52-1.04) mg/dL Glucose 131 H (74-99) mg/dL POC Glucose (mg/dL) 143 H (75-99) mg/dL C-Reactive Protein 1.3 H (<1.0) mg/dL Assessment and Plan (1) Rectus sheath hematoma Current Visit: Yes Status: Acute Code(s): S30.1XXA - CONTUSION OF ABDOMINAL WALL, INITIAL ENCOUNTER SNOMED Code(s): 043653366 (2) Morbid obesity due to excess calories Current Visit: Yes Status: Acute Code(s): E66.01 - MORBID (SEVERE) OBESITY DUE TO EXCESS CALORIES SNOMED Code(s): 088483410 (3) Adult BMI 50.0-59.9 kg/sq m Current Visit: Yes Status: Acute Code(s): Z68.43 - BODY MASS INDEX [BMI] 50.0-59.9, ADULT SNOMED Code(s): 839883125 (4) Diabetes mellitus type 2 with complications Current Visit: Yes Status: Acute Code(s): E11.8 - TYPE 2 DIABETES MELLITUS WITH UNSPECIFIED COMPLICATIONS SNOMED Code(s): 38875453 (5) Hypertensive heart disease with congestive heart failure Current Visit: Yes Status: Acute Code(s): I11.0 - HYPERTENSIVE HEART DISEASE WITH HEART FAILURE SNOMED Code(s): 6321405 (6) Zqnbyyi-Kksyn-Jqhtv disease Current Visit: No Status: Acute Code(s): G60.0 - HEREDITARY MOTOR AND SENSORY NEUROPATHY SNOMED Code(s): 855967286 (7) COVID-19 Current Visit: Yes Status: Acute Code(s): U07.1 - COVID-19 SNOMED Code(s): 998530556 (8) Pneumonia due to 2019 novel coronavirus Current Visit: Yes Status: Acute Code(s): U07.1 - COVID-19; J12.82 - Pneumonia due to coronavirus disease 2019 SNOMED Code(s): 543131258485431343
--- NOTE | 2020-09-23 12:20 | P.PN ---
Subjective Progress Note Date: 09/23/20 CHIEF COMPLAINT: Abdominal wall hematoma HISTORY OF PRESENT ILLNESS: The patient is an 85-year-old female who presented to the hospital with COVID-19 and developed abdominal wall hematoma from her Lovenox. Patient reports of abdominal soreness of the left lower quadrant. Hemoglobin demonstrates decline over 1 g. Otherwise, she reports chronic cough. REVIEW OF ORGAN SYSTEMS: Has chronic cough. BMI over 50, morbid obesity, no chest pain. PHYSICAL EXAM: VITALS: Reviewed CONSTITUTIONAL: Well developed and in no acute distress. EYES: Conjuctivae without sclera icterus. Extraocular movements grossly intact. HEAD, EARS, NOSE, THROAT: Moist buccal mucosa. Head is atraumatic, normocephalic. Hears conversational speech. No nasal drainage. RESPIRATORY: Non-labored respirations and equal bilateral excursions. CARDIOVASCULAR: Regular rate and rhythm. ABDOMEN: Tender left abdominal wall. No peritonitis. MUSCULOSKELETAL: Generalized weakness. SKIN: Warm and well perfused with good skin turgor. NEUROLOGIC: Cranial nerves II through XII grossly intact. Sensation upper and extremities intact. PSYCH: Appropriate affect. Alert and oriented to person, place and time. Displays appropriate insight. CLINCAL LABS: Hemoglobin down 10.8 from 12.5. WBC down 10.6 from 11.4, now normal. ASSESSMENT: 1. Rectus abdominal wall hematoma 2. COVID-19 positive pneumonia 3. Super morbid obesity, BMI 55.4 4. Progressive neurological disease, Margarita Charcot syndrome 5. Diabetes type 2, [id number] 6. Hypertensive heart disease with congestive heart failure PLAN: 1. Recommend continue abdominal binder. 2. May need additional cough suppressant 3. No surgical intervention planned as she is extremely high risk 4. Stable for discharge when medically stable. Objective - Vital Signs Vital signs: Vital Signs Temp 96.2 F L 09/23/20 08:25 Pulse 80 09/23/20 08:25 Resp 18 09/23/20 08:25 BP 144/89 09/23/20 08:25 Pulse Ox 96 09/23/20 08:25 Intake & Output 09/22/20 09/23/20 09/23/20 18:59 06:59 18:59 Intake Total 1910 Output Total 3150 1999 Balance -1239 Weight 92.986 kg Intake: Intake, IV Titration 50 Amount cefTRIAXone 1 gm In 50 Sodium Chloride 0.9% 50 ml @ 100 mls/hr IVPB Q24HR [facility] Rx#:[id number] Oral 1860 Output: Urine 3150 2000 Other: Voiding Method External Catheter Diaper External Catheter # Voids 1 1 # Bowel Movements 1 - Labs CBC & Chem 7: 09/25/20 07:47 09/25/20 07:47 Labs: Abnormal Lab Results - Last 24 Hours (Table) 09/22/20 09/22/20 09/23/20 Range/Units 16:55 21:19 07:55 RBC 3.39 L (3.80-5.40) m/uL Hgb 10.8 L (11.4-16.0) gm/dL Hct 30.6 L (34.0-46.0) % Neutrophils # 9.2 H (1.3-7.7) k/uL Lymphocytes # 0.8 L (1.0-4.8) k/uL Sodium (137-145) mmol/L Creatinine (0.52-1.04) mg/dL Glucose (74-99) mg/dL POC Glucose (mg/dL) 114 H 126 H (75-99) mg/dL C-Reactive Protein (<1.0) mg/dL 09/23/20 09/23/20 Range/Units 07:55 07:57 RBC (3.80-5.40) m/uL Hgb (11.4-16.0) gm/dL Hct (34.0-46.0) % Neutrophils # (1.3-7.7) k/uL Lymphocytes # (1.0-4.8) k/uL Sodium 132 L (137-145) mmol/L Creatinine 0.43 L (0.52-1.04) mg/dL Glucose 131 H (74-99) mg/dL POC Glucose (mg/dL) 143 H (75-99) mg/dL C-Reactive Protein 1.3 H (<1.0) mg/dL Assessment and Plan (1) Rectus sheath hematoma Status: Acute Code(s): S30.1XXA - CONTUSION OF ABDOMINAL WALL, INITIAL ENCOUNTER SNOMED Code(s): 054425144 (2) Morbid obesity due to excess calories Status: Acute Code(s): E66.01 - MORBID (SEVERE) OBESITY DUE TO EXCESS CALORIES SNOMED Code(s): 798229536 (3) Adult BMI 50.0-59.9 kg/sq m Status: Acute Code(s): Z68.43 - BODY MASS INDEX [BMI] 50.0-59.9, ADULT SNOMED Code(s): 454348246 (4) Diabetes mellitus type 2 with complications Status: Acute Code(s): E11.8 - TYPE 2 DIABETES MELLITUS WITH UNSPECIFIED COMPLICATIONS SNOMED Code(s): 36914813 (5) Hypertensive heart disease with congestive heart failure Status: Acute Code(s): I11.0 - HYPERTENSIVE HEART DISEASE WITH HEART FAILURE SNOMED Code(s): 1665373 (6) Xmvroeh-Sbede-Oozct disease Status: Acute Code(s): G60.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
[2020-09-23 17:22] LABS: Glucose,Whole Blood 116 mg/dL (75-99)
[2020-09-23 18:51] VITALS: RESP 18
[2020-09-23 20:28] LABS: Glucose,Whole Blood 162 mg/dL (75-99)
[2020-09-23] MEDS: DEXAMETHASONE SOD PHOSPHATE 10 MG/ML 1 ML VIAL IV SCH (20:43)
--- NOTE | 2020-09-23 22:02 | P.PN ---
Subjective Progress Note Date: 09/23/20 Principal diagnosis: covid 19 infection generalized weakness Dyspnea Urinary tract infection Left abdominal wall hematoma see dictation from CT abdomen and pelvis for measurements 85-year-old female was admitted to the hospital for generalized weakness and shortness of breath with associated nonproductive cough patient had extensive diagnostic workup in the emergency department revealing a covid- 19 infection.she has significant medical history of rheumatoid arthritis, charcot yahir tooth, heart failure, diabetes mellitus, hyperlipidemia, thyroid disorder, thyroid disorder, and it inability to ambulate due to debilitating rheumatoid arthritis. Patient was evaluated this a.m. resting comfortably in bed on 2 L of oxygen saturations 92-94%. Patient continues to endorse chills, shortness of breath on exertion, and generalized weakness. 09/18/2020 Patient resting comfortably in bed, patient continues to endorse chills, shortness of breath, dyspnea on exertion, mid chest discomfort, and generalized weakness. oxygen saturation on 2 L patient is from 93-95%. She continues to benefit from covid 19 treatments. Patient's been having elevated blood pressure will start Cozaar 50 mg by mouth daily to see response. adding additional albuterol for shortness of breath .Awaiting diagnostic labs this a.m. and urine culture 09/19/2020 Evaluated patient this a.m., resting comfortably in bed. Patient endorses chills, shortness of breath, dyspnea on exertion, dysuria and generalized weakness. she continues to benefit from Covid 19 treatments. Patient's blood pressure is stabilizing with Cozaar 50 mg by mouth daily. Preliminary urinary culture came back gram-negative bacilli-with a count of 50,000 to 100,000due to patient's symptomatic dysuriaand urine cultureRocephin 1 g IV piggyback has been initiated. She states her breathing has improved with albuterol inhaler and use of incentive spirometer. Patient's oxygen saturation 93-95% on 1.5 L. Awaiting on diagnostic labs this a.m. and final chest x-ray reading 09/20/2020 Elevated patient this a.m., patient resting in bed with mild discomfort noted to the abdomen. Patient had CT abdomen and pelvis last night with resulting abdominal wall hematoma. Surgery was consulted for recommendations and treatment plan. she had episodes of low blood pressure given normal saline 500 mL bolus and increase rate to 75 ML's per hour. Upon evaluation this a.m. patient's blood pressure still low 90s to 100 systolic another 500 mL bolus to be given. Discontinued blood pressure meds at this time. H&H continue to be stable. Patient's breathing to be unlabored and decreased work of breathingoxygen saturation on 2 L 96%. Discontinue Lovenox due to left abdominal wall hematoma.continue consultation with infectious disease for Covid 19 infection. Awaiting surgical recommendations and treatment plan for her left abdominal wall hematoma. 09/21/2020 Admitted for Covid pneumonia and UTI Patient is currently lying in bed comfortably. No complaints of chest pain. Shortness of breath is improving. Patient was seen by general surgery due to abdominal wall hematoma and required off blood thinners for at least 72 hours. Follow-up hemoglobin level. Otherwise patient is being continued on dexamethasone, gentle IV hydration and antibiotics in the form of ceftriaxone and multivitamins. Patient has been afebrile. Blood pressure fairly controlled. Urine culture showed gram-negative bacilli. 09/22/2020 Patient is currently lying in bed comfortably. No complaints of chest pain. Breathing status is improving. Currently on 2 L oxygen via nasal cannula. Patient has been afebrile. No bleeding from the hematoma site. Blood thinners are continued to be on hold. Urine culture showed E. coli which is pansensitive and is being continued ceftriaxone. Patient is being continued on dexamethasone and multivitamins and follow-up CBC and BMP tomorrow.Anticipate discharge to rehab versus home with home PT 09/23/2020 Patient is lying in the bed comfortably. Awake alert and oriented x3. Still complains of weakness mainly generalized. No fever no chills. Abdominal binder is in place. Abdominal wall hematoma stable. Hemoglobin is 10.8 today. And CRP level is 1.3, sodium 132 and other laboratory data reviewed. Patient denies any complaints of chest pain. Patient states that she cannot take care of herself at home. Unable to get up and walk. PT OT will be consulted and possible transfer to rehab. On ceftriaxone for E. coli urinary tract infection. Day 5. Current medications reviewed. Objective - Vital Signs Vital signs: Vital Signs Temp 96.6 F L 09/23/20 18:49 Pulse 76 09/23/20 18:49 Resp 18 09/23/20 18:49 BP 178/90 09/23/20 18:49 Pulse Ox 93 L 09/23/20 18:49 Intake & Output 09/23/20 09/23/20 09/24/20 06:59 18:59 06:59 Output Total 1999 1799 Balance -1999 -1799 Weight 92.986 kg Output: Urine 1999 1799 Other: Voiding Method Diaper Diaper External Catheter External Catheter # Voids 1 1 - Exam - Constitutional General appearance: Present: mild distress - EENT Eyes: Present: EOMI, PERRLA ENT: Present: normal oropharynx Ears: bilateral: normal - Neck Neck: Present: normal ROM Carotids: bilateral: upstroke normal Thyroid: bilateral: normal size - Respiratory Respiratory: bilateral: CTA (Anterior lung amin), diminished (Posterior lung amin) - Cardiovascular Details: Sinus rhythm Heart rate: 87 Rhythm: regular Heart sounds: normal: S1, S2 - Peripheral pulses dorsalis pedis Peripheral Pulses: bilateral: Normal radial pulse Peripheral Pulses: bilateral: Normal - Gastrointestinal General gastrointestinal: Present: normal bowel sounds, tenderness Localized gastrointestinal: tender: diffuse, mass: LUQ Abdominal binder in place. - Integumentary Integumentary: Present: pale - Neurologic Neurologic: Present: CNII-XII intact - Musculoskeletal Musculoskeletal: Present: generalized weakness - Psychiatric Psychiatric: Present: A&O x's 3, appropriate affect, intact judgment & insight - Allied health notes Allied health notes reviewed: nursing - Labs CBC & Chem 7: 09/23/20 07:55 09/23/20 07:55 Labs: Abnormal Lab Results - Last 24 Hours (Table) 09/23/20 09/23/20 09/23/20 Range/Units 07:55 07:55 07:57 RBC 3.39 L (3.80-5.40) m/uL Hgb 10.8 L (11.4-16.0) gm/dL Hct 30.6 L (34.0-46.0) % Neutrophils # 9.2 H (1.3-7.7) k/uL Lymphocytes # 0.8 L (1.0-4.8) k/uL Sodium 132 L (137-145) mmol/L Creatinine 0.43 L (0.52-1.04) mg/dL Glucose 131 H (74-99) mg/dL POC Glucose (mg/dL) 143 H (75-99) mg/dL C-Reactive Protein 1.3 H (<1.0) mg/dL 09/23/20 09/23/20 Range/Units 17:21 20:27 RBC (3.80-5.40) m/uL Hgb (11.4-16.0) gm/dL Hct (34.0-46.0) % Neutrophils # (1.3-7.7) k/uL Lymphocytes # (1.0-4.8) k/uL Sodium (137-145) mmol/L Creatinine (0.52-1.04) mg/dL Glucose (74-99) mg/dL POC Glucose (mg/dL) 116 H 162 H (75-99) mg/dL C-Reactive Protein (<1.0) mg/dL Assessment and Plan Assessment: Covid 19 infectioncontinue covid 19 cocktail Patient will be continued on dexamethasone, multivitamins and Lovenox is on hold Due to abdominal wall hematoma. Urine culture positive for gram-negative bacilli/EcoliRocephin 1 g every 24 hours IV piggyback Left abdominal wall hematomaNo surgical intervention recommended as per general surgery. Hemoglobin is stable. Continue with abdominal binder.. Episodes of hypotension-most saline boluses of 500 mL 2hold blood pressure meds at this time Rheumatoid arthritis continue analgesics as needed, and physical therapy Hyperlipidemia continue home medications diabetes mellitus type 2-continue to monitor blood sugars Hypothyroidismcontinue medications Continue to monitor vital signs and diagnostic labs, and chest x-ray Continue medical management Further recommendations to come based on patient's clinical condition Time with Patient: Greater than 30
--- NOTE | 2020-09-23 23:22 | PN ---
PROGRESS NOTE DATE OF SERVICE: 09/23/2020 REASON FOR FOLLOWUP: COVID-19 pneumonia. INTERVAL HISTORY: The patient is afebrile. The patient is feeling slightly better today. She is breathing more comfortably. Denies having any chest pain. She did have some cough but not bringing up any sputum. No abdominal pain and no diarrhea. PHYSICAL EXAMINATION: Blood pressure 178/90 with a pulse of 76, temperature 96.6. She is 93% on room air. General description is an elderly female lying in bed in no distress. RESPIRATORY SYSTEM: Unlabored breathing. Clear to auscultation anteriorly. HEART: S1, S2. Regular rate and rhythm. ABDOMEN: Soft. No tenderness. LABS: Hemoglobin is 10.8, white count 10.6, BUN of 16, creatinine 0.43. CRP is down to 1.3. culture is normal. DIAGNOSTIC IMPRESSION AND PLAN: Patient with acute COVID-19 pneumonia in this patient who has shown overall clinical improvement with current supportive treatment. This patient has been on dexamethasone, zinc and ascorbic acid. Lovenox will be discontinued because of a rectus sheath hematoma. Continue with the current supportive treatment. MMODL / IJN: [id number] / MTDD
[2020-09-23] MEDS: HYDROmorphone 0.5 MG/0.5 ML SYRINGE IVP PRN (23:40)
[2020-09-24] MEDS: traMADol 50 MG TAB PO PRN ×4 (05:52→23:26)
[2020-09-24] MEDS: LEVOTHYROXINE 125 MCG TAB PO SCH (05:53)
[2020-09-24 07:26] LABS: Glucose,Whole Blood 183 mg/dL (75-99)
[2020-09-24] MEDS: INSULIN ASPART (NovoLOG) 100 UNIT/ML VIAL SQ SCH ×4 (07:26→21:54)
--- NOTE | 2020-09-24 07:33 | P.PN ---
Subjective Progress Note Date: 09/24/20 Principal diagnosis: covid 19 infection generalized weakness Dyspnea Urinary tract infection Left abdominal wall hematoma see dictation from CT abdomen and pelvis for measurements 85-year-old female was admitted to the hospital for generalized weakness and shortness of breath with associated nonproductive cough patient had extensive diagnostic workup in the emergency department revealing a covid- 19 infection.she has significant medical history of rheumatoid arthritis, charcot yahir tooth, heart failure, diabetes mellitus, hyperlipidemia, thyroid disorder, thyroid disorder, and it inability to ambulate due to debilitating rheumatoid arthritis. Patient was evaluated this a.m. resting comfortably in bed on 2 L of oxygen saturations 92-94%. Patient continues to endorse chills, shortness of breath on exertion, and generalized weakness. 09/18/2020 Patient resting comfortably in bed, patient continues to endorse chills, shortness of breath, dyspnea on exertion, mid chest discomfort, and generalized weakness. oxygen saturation on 2 L patient is from 93-95%. She continues to benefit from covid 19 treatments. Patient's been having elevated blood pressure will start Cozaar 50 mg by mouth daily to see response. adding additional albuterol for shortness of breath .Awaiting diagnostic labs this a.m. and urine culture 09/19/2020 Evaluated patient this a.m., resting comfortably in bed. Patient endorses chills, shortness of breath, dyspnea on exertion, dysuria and generalized weakness. she continues to benefit from Covid 19 treatments. Patient's blood pressure is stabilizing with Cozaar 50 mg by mouth daily. Preliminary urinary culture came back gram-negative bacilli-with a count of 50,000 to 100,000due to patient's symptomatic dysuriaand urine cultureRocephin 1 g IV piggyback has been initiated. She states her breathing has improved with albuterol inhaler and use of incentive spirometer. Patient's oxygen saturation 93-95% on 1.5 L. Awaiting on diagnostic labs this a.m. and final chest x-ray reading 09/20/2020 Elevated patient this a.m., patient resting in bed with mild discomfort noted to the abdomen. Patient had CT abdomen and pelvis last night with resulting abdominal wall hematoma. Surgery was consulted for recommendations and tr eatment plan. she had episodes of low blood pressure given normal saline 500 mL bolus and increase rate to 75 ML's per hour. Upon evaluation this a.m. patient's blood pressure still low 90s to 100 systolic another 500 mL bolus to be given. Discontinued blood pressure meds at this time. H&H continue to be stable. Patient's breathing to be unlabored and decreased work of breathingoxygen saturation on 2 L 96%. Discontinue Lovenox due to left abdominal wall hematoma.continue consultation with infectious disease for Covid 19 infection. Awaiting surgical recommendations and treatment plan for her left abdominal wall hematoma. 09/21/2020 to 09/23/2020 see [facility] hospitalist SOAP note 09/24/2020 Evaluated patient this a.m., resting comfortably in bed on 2 L nasal cannula. Abdominal binder in place for left abdominal wall hematomapatient states improvement in pain. Patient's blood pressure has increased to 150s over 90 will restart Cozaar at 25 mg by mouth daily .physical therapy and occupational therapy continue to evaluate patient. Patient endorses generalized weakness and mild shortness of breath with exertion patient denies fever chills, chest pain, palpitations, nausea, vomiting, or diarrhea at this time. Lengthy discussion with patient regarding the need for rehab for multiple medical problems with significant deconditioning over the last 7 days with significant infection of Covid 19 infection patient agreeable to go to [facility] for reha bilitation. Patient no acute signs of distress upon evaluation this a.m. Objective - Vital Signs Vital signs: Vital Signs Temp 96.2 F L 09/24/20 07:17 Pulse 83 09/24/20 07:17 Resp 18 09/24/20 07:17 BP 158/86 09/24/20 07:17 Pulse Ox 95 09/24/20 07:17 Intake & Output 09/23/20 09/24/20 09/24/20 18:59 06:59 18:59 Output Total 1800 1730 Balance -1800 -1730 Weight 92.986 kg Output: Urine 1800 1730 Other: Voiding Method Diaper Diaper External Catheter External Catheter # Voids 1 - Constitutional General appearance: Present: mild distress - EENT Eyes: Present: EOMI, PERRLA Ears: bilateral: normal - Neck Carotids: bilateral: upstroke normal Thyroid: negative: normal size - Respiratory Respiratory: bilateral: diminished (Anterior and posterior) - Cardiovascular Details: Normal sinus rhythm mechanism Heart rate: 74 Rhythm: regular Heart sounds: normal: S1, S2 - Peripheral edema leg Peripheral Edema: bilateral: 1+ ankle Peripheral Edema: bilateral: 1+ foot Peripheral Edema: bilateral: 1+ - Peripheral pulses radial pulse Peripheral Pulses: bilateral: Normal - Gastrointestinal Gastrointestinal Comment(s): Left abdominal wall hematoma with abdominal binder placed General gastrointestinal: Present: normal bowel sounds - Integumentary Integumentary: Present: pale - Neurologic Neurologic: Present: CNII-XII intact - Musculoskeletal Musculoskeletal: Present: generalized weakness - Psychiatric Psychiatric: Present: A&O x's 3, appropriate affect, intact judgment & insight - Allied health notes Allied health notes reviewed: nursing - Labs CBC & Chem 7: 09/23/20 07:55 09/23/20 07:55 Labs: Abnormal Lab Results - Last 24 Hours (Table) 09/23/20 09/23/20 09/23/20 Range/Units 07:55 07:55 07:57 RBC 3.39 L (3.80-5.40) m/uL Hgb 10.8 L (11.4-16.0) gm/dL Hct 30.6 L (34.0-46.0) % Neutrophils # 9.2 H (1.3-7.7) k/uL Lymphocytes # 0.8 L (1.0-4.8) k/uL Sodium 132 L (137-145) mmol/L Creatinine 0.43 L (0.52-1.04) mg/dL Glucose 131 H (74-99) mg/dL POC Glucose (mg/dL) 143 H (75-99) mg/dL C-Reactive Protein 1.3 H (<1.0) mg/dL 09/23/20 09/23/20 Range/Units 17:21 20:27 RBC (3.80-5.40) m/uL Hgb (11.4-16.0) gm/dL Hct (34.0-46.0) % Neutrophils # (1.3-7.7) k/uL Lymphocytes # (1.0-4.8) k/uL Sodium (137-145) mmol/L Creatinine (0.52-1.04) mg/dL Glucose (74-99) mg/dL POC Glucose (mg/dL) 116 H 162 H (75-99) mg/dL C-Reactive Protein (<1.0) mg/dL - Imaging and Cardiology Chest x-ray: image reviewed Assessment and Plan Assessment: Covid 19 infectioncontinue supportive care Urine culture positive for gram-negative bacilliRocephin 1 g every 24 hours IV piggyback Left abdominal wall hematomaconsult surgery for recommendations and treatment plan Hypertension we'll restart Cozaar 25 mg by mouth daily Rheumatoid arthritis continue analgesics as needed, and physical therapy Hyperlipidemia continue home medications diabetes mellitus type 2-continue to monitor blood sugars Hypothyroidismcontinue medications Continue to monitor vital signs and diagnostic labs, and chest x-ray Continue medical management Further recommendations to come based on patient's clinical condition Hopeful discharge within 24 hours to 48 hours to [facility] facility for rehabilitation Time with Patient: Greater than 30
--- NOTE | 2020-09-24 07:34 | XR ---
EXAMINATION TYPE: XR chest 1V portable DATE OF EXAM: 09/24/2020 Comparison: 09/20/2020 Clinical History: 85-year-old female shortness of breath, covid-19 Findings: Heart borderline enlarged. Focal opacity at the right base has a somewhat bandlike configuration. Lar ge patient body habitus. Degenerative changes of the shoulders. Upper and mid lungs appear clear. Impression: Focal right basilar opacity has a bandlike configuration suggesting atelectasis that has slightly inc reased in the interval. Some residual mild infiltrate is possible.
[2020-09-24] MEDS: ALBUTEROL HFA INHALER INHALATION SCH ×4 (08:10→20:21)
[2020-09-24] MEDS: CHOLECALCIFEROL 25 MCG (1000 IU) TABLET PO SCH (08:11)
[2020-09-24] MEDS: ASCORBIC ACID 500 MG TAB PO SCH ×2 (08:11→21:54)
[2020-09-24] MEDS: METOPROLOL SUCCINATE (ER) 25 MG TAB.ER.24H PO SCH (08:11)
[2020-09-24] MEDS: FAMOTIDINE 20 MG TAB PO SCH ×2 (08:11→21:54)
[2020-09-24] MEDS: LOSARTAN 25 MG TAB PO SCH (08:11)
[2020-09-24] MEDS: ZINC SULFATE 220 MG CAP PO SCH (08:11)
[2020-09-24] MEDS: GABAPENTIN 100 MG CAP PO SCH ×3 (08:11→21:54)
[2020-09-24] MEDS: BENZONATATE 100 MG CAP PO SCH ×3 (08:11→21:54)
[2020-09-24] MEDS: CLOTRIMAZOLE 1% CREAM 30 GM TUBE TOPICAL SCH (08:12)
[2020-09-24 08:51] LABS: Basophils % (A) 0 %; Eosinophils % (A) 0 %; HCT 35.4 % (34.0-46.0); HGB 11.4 gm/dL (11.4-16.0); Lymphocytes # (A) 0.9 k/uL (1.0-4.8); Lymphocytes % (A) 9 %; MCH 29.8 pg (25.0-35.0); MCHC 32.3 g/dL (31.0-37.0); MCV 92.4 fL (80.0-100.0); Mean Platelet Volume 7.4; Monocytes # (A) 0.3 k/uL (0-1.0); Monocytes % (A) 3 %; Neutrophils # (A) 8.9 k/uL (1.3-7.7); Neutrophils % (A) 87 %; Platelet Count 412 k/uL (150-450); RBC 3.83 m/uL (3.80-5.40); RDW 14.2 % (11.5-15.5); WBC 10.2 k/uL (3.8-10.6)
[2020-09-24 09:08] LABS: African American GFR (CKD) >90 (>60 ml/min/1.73 sqM); Anion Gap 7 mmol/L; Blood Urea Nitrogen 21 mg/dL (7-17); Calcium 8.7 mg/dL (8.4-10.2); Carbon Dioxide 26 mmol/L (22-30); Chloride 96 mmol/L (98-107); Glucose 185 mg/dL (74-99); Magnesium 1.9 mg/dL (1.6-2.3); Non-African American GFR(CKD) 87 (>60 ml/min/1.73 sqM); Potassium 4.8 mmol/L (3.5-5.1); Sodium 129 mmol/L (137-145)
[2020-09-24 12:42] LABS: Glucose,Whole Blood 97 mg/dL (75-99)
[2020-09-24] MEDS: SODIUM CHLORIDE 0.9% 1,000 ML IV SCH (13:38)
--- NOTE | 2020-09-24 14:05 | P.PN ---
Subjective Progress Note Date: 09/24/20 CHIEF COMPLAINT: Abdominal wall hematoma HISTORY OF PRESENT ILLNESS: The patient is an 85-year-old female who presented to the hospital with COVID-19 and developed abdominal wall hematoma. She reports her abdominal pain is improved with her binder. Hgb is stable. REVIEW OF ORGAN SYSTEMS: Has chronic cough. BMI over 50, morbid obesity, no chest pain. PHYSICAL EXAM: VITALS: Reviewed CONSTITUTIONAL: Well developed and in no acute distress. EYES: Conjuctivae without sclera icterus. Extraocular movements grossly intact. HEAD, EARS, NOSE, THROAT: Moist buccal mucosa. Head is atraumatic, normoc ephalic. Hears conversational speech. No nasal drainage. RESPIRATORY: Non-labored respirations and equal bilateral excursions. CARDIOVASCULAR: Regular rate and rhythm. ABDOMEN: Binder present MUSCULOSKELETAL: Generalized weakness. SKIN: Warm and well perfused with good skin turgor. NEUROLOGIC: Cranial nerves II through XII grossly intact. Sensation upper and extremities intact. PSYCH: Appropriate affect. Alert and oriented to person, place and time. Displays appropriate insight. CLINCAL LABS: WBC up 11.8. Hemoglobin up to 12.0 ASSESSMENT: 1. Rectus abdominal wall hematoma 2. COVID-19 positive pneumonia 3. Super morbid obesity, BMI 55.4 4. Progressive neurological disease, Margarita Charcot syndrome 5. Diabetes type 2, [id number] 6. Hypertensive heart disease with congestive heart failure PLAN: 1. Follow up as outpatient as needed 2. Stable for discharge Objective - Vital Signs Vital signs: Vital Signs Temp 96.5 F L 09/24/20 12:00 Pulse 75 09/24/20 12:00 Resp 18 09/24/20 12:00 BP 151/85 09/24/20 12:00 Pulse Ox 94 L 09/24/20 12:00 Intake & Output 09/23/20 09/24/20 09/24/20 18:59 06:59 18:59 Output Total 1800 1730 800 Balance -1800 -1730 -800 Weight 92.986 kg Output: Urine 1800 1730 800 Other: Voiding Method Diaper Diaper Diaper External Catheter External Catheter External Catheter # Voids 1 # Bowel Movements 1 - Labs CBC & Chem 7: 09/25/20 07:47 09/25/20 07:47 Labs: Abnormal Lab Results - Last 24 Hours (Table) 09/23/20 09/23/20 09/24/20 Range/Units 17:21 20:27 07:24 Neutrophils # (1.3-7.7) k/uL Lymphocytes # (1.0-4.8) k/uL Sodium (137-145) mmol/L Chloride (98-107) mmol/L BUN (7-17) mg/dL Glucose (74-99) mg/dL POC Glucose (mg/dL) 116 H 162 H 183 H (75-99) mg/dL 09/24/20 09/24/20 Range/Units 08:33 08:33 Neutrophils # 8.9 H (1.3-7.7) k/uL Lymphocytes # 0.9 L (1.0-4.8) k/uL Sodium 129 L (137-145) mmol/L Chloride 96 L (98-107) mmol/L BUN 21 H (7-17) mg/dL Glucose 185 H (74-99) mg/dL POC Glucose (mg/dL) (75-99) mg/dL Assessment and Plan (1) Rectus sheath hematoma Status: Acute Code(s): S30.1XXA - CONTUSION OF ABDOMINAL WALL, INITIAL EN COUNTER SNOMED Code(s): 646256059 (2) Morbid obesity due to excess calories Status: Acute Code(s): E66.01 - MORBID (SEVERE) OBESITY DUE TO EXCESS CALORIES SNOMED Code(s): 083873445 (3) Adult BMI 50.0-59.9 kg/sq m Status: Acute Code(s): Z68.43 - BODY MASS INDEX [BMI] 50.0-59.9, ADULT SNOMED Code(s): 636242316 (4) Diabetes mellitus type 2 with complications Status: Acute Code(s): E11.8 - TYPE 2 DIABETES MELLITUS WITH UNSPECIFIED COMPLICATIONS SNOMED Code(s): 37064514 (5) Hypertensive heart disease with congestive heart failure Status: Acute Code(s): I11.0 - HYPERTENSIVE HEART DISEASE WITH HEART FAILURE SNOMED Code(s): 3218786 (6) Qmwavhp-Uibsf-Odfkr disease Status: Acute Code(s): G60.0 - HEREDITARY MOTOR AND SENSORY NEUROPATHY SNOMED Code(s): 126340220 (7) COVID-19 Status: Acute Code(s): U07.1 - COVID-19 SNOMED Code(s): 998679869 (8) Pneumonia due to 2019 novel coronavirus Status: Acute Code(s): U07.1 - COVID-19; J12.82 - Pneumonia due to coronavirus disease 2019 SNOMED Code(s): 806768945380721409
--- NOTE | 2020-09-24 16:50 | PN ---
PROGRESS NOTE DATE OF SERVICE: 09/24/2020 REASON FOR FOLLOWUP: COVID-19 pneumonia. INTERVAL HISTORY: Patient is currently afebrile. The patient is breathing more comfortably. The patient denies having any chest pain. No worsening cough. Complaining of pain to the abdominal from the hematoma, but no worsening. No diarrhea. PHYSICAL EXAMINATION: Blood pressure 151/85, pulse of 75, temperature 96.5. She is 94% on 2 L nasal cannula. General description is an elderly female lying in bed in no distress. Respiratory system: Unlabored breathing, clear to auscultation anteriorly. HEART: S1, S2. Regular rate and rhythm. ABDOMEN: Soft, mild tenderness. LABS: Hemoglobin 11.4, white count 10.2, BUN of 21, creatinine 0.55. IMPRESSION/PLAN: Patient with COVID-19 pneumonia in this patient with some improvement with supportive treatment of dexamethasone, zinc, ascorbic acid. Lovenox has to be discontinued because of the abd wall hematoma which is being monitored by Surgery. Continue supportive care. MMODL / IJN: [id number] / MTDD
[2020-09-24 16:58] LABS: Glucose,Whole Blood 106 mg/dL (75-99)
--- NOTE | 2020-09-24 20:02 | P.DS ---
Providers Date of admission: 09/16/20 13:08 Expected date of discharge: 09/25/20 Attending physician: Brock Molina Consults: 09/15/20 19:50 Consult Physician Urgent Consulting Provider: Wesley Trevino Consult Reason/Comments: acute covid infection, acute respiratory insuff Do you want consulting provider notified?: Yes 09/19/20 20:07 Consult Physician Stat Consulting Provider: Marcie Bonilla Consult Reason/Comments: LEFT ABDOMINAL WALL MUSCULATURE HEMATOMA MEASURING APPROXIMATELY 25 X 20X 9 Do you want consulting provider notified?: Yes Primary care physician: Brock Molina Hospital Course: 85-year-old female was admitted to the hospital for generalized weakness and shortness of breath with associated nonproductive cough. patient had extensive diagnostic workup in the emergency department revealing a covid- 19 infection.she has significant medical history of rheumatoid arthritis, charcot yahir tooth, heart failure, diabetes mellitus, hyperlipidemia, , thyroid disorder, and inability to ambulate due to debilitating rheumatoid arthritis.Patient had Covid 19 infection received Lovenox, Decadron, vitamin D, vitamin C, and zinc oxide. Inflammatory markers consistent with Covid 19 trending downward through the hospital stay. Patient found to have urinary tract infection treated with broad-spectrum antibiotics of Rocephin for 5 days.During hospital stay, patient found to have diffuse abdominal pain;CT abdomen pelvis with oral and IV contrast was obtained found to have left abdominal wall hematoma surgical consult conservative measures with abdominal binder, and discontinuation of Lovenox due to anticoagulation properties. Patient was evaluated by physical therapy/occupational therapy with recommendations of rehabilitation at [facility] to regain strength and to monitor left abdominal wall hematoma.Patient will benefit from acute rehab at [facility] facility for multiple comorbidities and current medical conditions Assessment: Covid 19 infection consistent with Covid 19 pneumonia elevated inflammatory markers consistent with Covid 19 acute hypoxic failure consistent with Covid 19 patient tolerating 2 L of oxygen saturations 93 to 96% urinary tract infection treated with broad-spectrum antibiotics for 5 day duration asymptomatic at this time rheumatoid arthritis charcot yahir tooth History ofheart failure diabetes mellitus hyperlipidemia thyroid disorder inability to ambulate due to debilitating rheumatoid arthritis Health Concerns: Complexity of medical conditions Covid 19 infection generalized weakness Pertinent Studies: Serial chest x-rays consistent with Covid [address] abdomen pelvis with IV and oral contrast left abdominal wall hematoma see dictation for measurements Procedures: None performed Patient Condition at Discharge: Stable Plan - Discharge Summary Discharge Rx Participant: Yes New Discharge Prescriptions: New Benzocaine/Menthol Lozeng [Cepacol lozenge] 1 each MUCOUS MEM Q4HR PRN #30 lozenge PRN Reason: Cough Losartan [Cozaar] 25 mg PO DAILY #30 tab Zinc Sulfate [Orazinc] 220 mg PO DAILY 10 Days #10 cap Famotidine [Pepcid] 20 mg PO BID #30 tab Benzonatate [Tessalon Perles] 100 mg PO TID #20 cap Acetaminophen Tab [Tylenol] 650 mg PO Q6HR PRN #20 tab PRN Reason: Mild Pain Or Fever > 100.5 Ascorbic Acid [Vitamin C] 500 mg PO BID #20 tab Continue Metoprolol Succinate [Toprol XL] 25 mg PO DAILY Ketoconazole 2% Cream [Nizoral 2%] 1 applic TOPICAL DAILY Cholecalciferol [Vitamin D3 (25 Mcg = 1000 Iu)] 25 mcg PO DAILY Gabapentin [Neurontin] 100 mg PO TID #9 cap traMADol HCL [Ultram] 50 mg PO Q6H PRN 3 Days #12 tab PRN Reason: Pain Levothyroxine Sodium [Synthroid] 125 mcg PO DAILY Discharge Medication List Metoprolol Succinate [Toprol XL] 25 mg PO DAILY 01/21/16 [History] Cholecalciferol [Vitamin D3 (25 Mcg = 1000 Iu)] 25 mcg PO DAILY 09/15/20 [History] Ketoconazole 2% Cream [Nizoral 2%] 1 applic TOPICAL DAILY 09/15/20 [History] Levothyroxine Sodium [Synthroid] 125 mcg PO DAILY 09/15/20 [History] Acetaminophen Tab [Tylenol] 650 mg PO Q6HR PRN #20 tab 09/24/20 [Rx] Ascorbic Acid [Vitamin C] 500 mg PO BID #20 tab 09/24/20 [Rx] Benzocaine/Menthol Lozeng [Cepacol lozenge] 1 each MUCOUS MEM Q4HR PRN #30 lo zenge 09/24/20 [Rx] Benzonatate [Tessalon Perles] 100 mg PO TID #20 cap 09/24/20 [Rx] Famotidine [Pepcid] 20 mg PO BID #30 tab 09/24/20 [Rx] Gabapentin [Neurontin] 100 mg PO TID #9 cap 09/24/20 [Rx] Losartan [Cozaar] 25 mg PO DAILY #30 tab 09/24/20 [Rx] Zinc Sulfate [Orazinc] 220 mg PO DAILY 10 Days #10 cap 09/24/20 [Rx] traMADol HCL [Ultram] 50 mg PO Q6H PRN 3 Days #12 tab 09/24/20 [Rx] Follow up Appointment(s)/Referral(s): Brock Molina MD [Primary Care Provider] - 1-2 days Tomasa Traore, [NON-STAFF] - As Needed [facility], [NON-STAFF] - As Needed Discharge Disposition: TRANSFER TO SNF/ECF
[2020-09-24 20:26] LABS: Glucose,Whole Blood 106 mg/dL (75-99)
[2020-09-24] MEDS: DEXAMETHASONE SOD PHOSPHATE 10 MG/ML 1 ML VIAL IV SCH (21:53)
[2020-09-25] MEDS: SODIUM CHLORIDE 0.9% 1,000 ML IV SCH ×2 (01:15→08:40)
[2020-09-25] MEDS: ACETAMINOPHEN TAB 325 MG TAB PO PRN ×2 (01:22→10:10)
[2020-09-25] MEDS: traMADol 50 MG TAB PO PRN ×2 (05:31→11:28)
[2020-09-25] MEDS: LEVOTHYROXINE 125 MCG TAB PO SCH (05:56)
--- NOTE | 2020-09-25 07:12 | P.PN ---
Progress Note - Text Progress Note Date: 09/25/20 The patient this a.m. resting comfortably in bed.patient's blood pressure has been trending upward, added additional Norvasc 5 mg by mouth daily with Cozaar 25 mg by mouth daily. Patient will K to go to [facility] nursing [facility] and blood pressure is equal to or less than 150/90.
[2020-09-25 07:22] LABS: Glucose,Whole Blood 191 mg/dL (75-99)
[2020-09-25] MEDS: ALBUTEROL HFA INHALER INHALATION SCH ×2 (07:32→12:11)
[2020-09-25 08:07] LABS: Basophils % (A) 0 %; Eosinophils % (A) 0 %; HCT 37.1 % (34.0-46.0); Lymphocytes % (A) 9 %; MCH 30.2 pg (25.0-35.0); MCHC 32.2 g/dL (31.0-37.0); MCV 93.7 fL (80.0-100.0); Mean Platelet Volume 7.3; Monocytes # (A) 0.5 k/uL (0-1.0); Monocytes % (A) 4 %; Neutrophils # (A) 10.2 k/uL (1.3-7.7); Neutrophils % (A) 86 %; Platelet Count 471 k/uL (150-450); RBC 3.96 m/uL (3.80-5.40); RDW 14.5 % (11.5-15.5); WBC 11.8 k/uL (3.8-10.6)
[2020-09-25 08:18] LABS: ALT 33 U/L (4-34); AST 28 U/L (14-36); African American GFR (CKD) >90 (>60 ml/min/1.73 sqM); Albumin 3.3 g/dL (3.5-5.0); Alkaline Phosphatase 92 U/L (38-126); Anion Gap 5 mmol/L; Blood Urea Nitrogen 23 mg/dL (7-17); Calcium 8.9 mg/dL (8.4-10.2); Carbon Dioxide 28 mmol/L (22-30); Chloride 99 mmol/L (98-107); Glucose 128 mg/dL (74-99); Non-African American GFR(CKD) 88 (>60 ml/min/1.73 sqM); Potassium 4.7 mmol/L (3.5-5.1); Sodium 132 mmol/L (137-145); Total Bilirubin 0.9 mg/dL (0.2-1.3)
[2020-09-25] MEDS: LOSARTAN 25 MG TAB PO SCH (08:40)
[2020-09-25] MEDS: ASCORBIC ACID 500 MG TAB PO SCH (08:40)
[2020-09-25] MEDS: amLODIPine 5 MG TAB PO SCH ×2 (08:40→08:54)
[2020-09-25] MEDS: INSULIN ASPART (NovoLOG) 100 UNIT/ML VIAL SQ SCH ×2 (08:40→12:23)
[2020-09-25] MEDS: GABAPENTIN 100 MG CAP PO SCH (08:40)
[2020-09-25] MEDS: ZINC SULFATE 220 MG CAP PO SCH (08:40)
[2020-09-25] MEDS: FAMOTIDINE 20 MG TAB PO SCH (08:40)
[2020-09-25] MEDS: CHOLECALCIFEROL 25 MCG (1000 IU) TABLET PO SCH (08:40)
[2020-09-25] MEDS: BENZONATATE 100 MG CAP PO SCH (08:44)
[2020-09-25] MEDS: METOPROLOL SUCCINATE (ER) 25 MG TAB.ER.24H PO SCH (08:45)
[2020-09-25] MEDS: CLOTRIMAZOLE 1% CREAM 30 GM TUBE TOPICAL SCH ×2 (08:52→08:55)
[2020-09-25 09:19] VITALS: BP 119/69; PULSE 105; TEMP 98.1
--- NOTE | 2020-09-25 14:53 | P.PN ---
Progress Note - Text Progress Note Date: 09/25/20 REASON FOR FOLLOWUP: COVID-19 pneumonia. INTERVAL HISTORY: Patient is afebrile. The patient is breathing comfortably on room air. The patient denies having any chest pain. No worsening cough. Complaining of pain to the abdominal from the hematoma, but no worsening. No diarrhea. PHYSICAL EXAMINATION: Blood pressure 150/80, pulse of 70, temperature 96.5. She is 94% on 2 L nasal cannula. General description is an elderly female lying in bed in no distress. Respiratory system: Unlabored breathing, clear to auscultation anteriorly. HEART: S1, S2. Regular rate and rhythm. ABDOMEN: Soft, mild tenderness. LABS: reviewed IMPRESSION/PLAN: Patient with COVID-19 pneumonia in this patient has shown improvement with supportive treatment of dexamethasone, zinc, ascorbic acid. Lovenox has to be discontinued because of the abd wall hematoma which is being monitored by Surgery. pt with no need for supplemental oxygen and is being discharged to rehab
== END 2020-09-25 13:54 | DRG 177 ==
LOC: EC 11:42 → 1SOBS 19:45 → OBSVTOIN 09-16 13:08
PROVIDERS: ADMIT Family Medicine; ATTEND Family Medicine
DX: U07.1 COVID-19 (principal); J12.82 Pneumonia due to coronavirus disease 2019; J96.01 Acute respiratory failure with hypoxia; N39.0 Urinary tract infection, site not specified; Z68.43 Body mass index [BMI] 50.0-59.9, adult; T50.B95A Adverse effect of other viral vaccines, initial encounter; I50.9 Heart failure, unspecified; B96.20 Unspecified Escherichia coli [E. coli] as the cause of diseases classified elsewhere; D72.810 Lymphocytopenia; E03.9 Hypothyroidism, unspecified; E11.51 Type 2 diabetes mellitus with diabetic peripheral angiopathy without gangrene; E66.01 Morbid (severe) obesity due to excess calories; E78.5 Hyperlipidemia, unspecified; G60.0 Hereditary motor and sensory neuropathy; I11.0 Hypertensive heart disease with heart failure; M06.9 Rheumatoid arthritis, unspecified; M19.90 Unspecified osteoarthritis, unspecified site; M79.81 Nontraumatic hematoma of soft tissue; Z79.890 Hormone replacement therapy; Z79.899 Other long term (current) drug therapy; Z82.49 Family history of ischemic heart disease and other diseases of the circulatory system; Z83.3 Family history of diabetes mellitus; Z83.49 Family history of other endocrine, nutritional and metabolic diseases; Z86.14 Personal history of Methicillin resistant Staphylococcus aureus infection; Z90.710 Acquired absence of both cervix and uterus; Z96.641 Presence of right artificial hip joint; Z99.3 Dependence on wheelchair; Z90.49 Acquired absence of other specified parts of digestive tract; Z90.89 Acquired absence of other organs; Z79.4 Long term (current) use of insulin; Z88.5 Allergy status to narcotic agent; Z88.2 Allergy status to sulfonamides; Z88.8 Allergy status to other drugs, medicaments and biological substances; Z88.6 Allergy status to analgesic agent; Z91.040 Latex allergy status; K42.9 Umbilical hernia without obstruction or gangrene
CPT/HCPCS: 36415; 71045; 71046; 74177; 80048; 80053; 81001; 82728; 83615; 83735; 83880; 84145; 84484; 85025; 85379; 85610; 85730; 86140; 87077; 87086; 87186; 87635; 93005; 94640; 94760; 96361; 96374; 99285

== ENCOUNTER → 2020-12-26 | Outpatient (CLI) | payer MEDICARE, BC ==
--- NOTE | 2020-12-26 08:44 | US ---
EXAMINATION TYPE: US duplex aorta DATE OF EXAM: 12/26/2020 COMPARISON: CT 2020 CLINICAL HISTORY: Z13.6 encounter for screening for cardiovascular. EXAM MEASUREMENTS: Abdominal Aorta: Proximal: 2.1 x 2.1cm Mid: obscured Distal: obscured Bifurcation: obscured Extremely limited study due to patient body habitus and exam done with patient sitting in motorized chair. IMPRESSION: No definite abdominal aortic aneurysm, however, the majority of the aorta is not well seen due to bow el gas.
== END | disposition home or self-care (01) ==
LOC: RADUSWWP 07:50
PROVIDERS: ATTEND Family Medicine
DX: Z13.6 Encounter for screening for cardiovascular disorders (principal); Z78.0 Asymptomatic menopausal state
CPT/HCPCS: 93979

== ENCOUNTER → 2020-12-30 | Outpatient (CLI) | payer MEDICARE, BC ==
[~2020-12-30] MED LIST: REGADENOSON 0.4 MG/5 ML SYRINGE IV PRN
--- NOTE | 2020-12-30 13:41 | NM ---
EXAMINATION TYPE: NM stress lexiscan cardiolite DATE OF EXAM: 12/30/2020 COMPARISON: NONE HISTORY: 85-year-old female post COVID shortness of breath. TECHNIQUE: After the intravenous administration of 9.7 mCi Tc 99m Sestamibi - Cardiolite resting SPE CT images acquired 45 minutes post injection. The patient received 0.4mg Lexiscan, 25.7 mCi Tc 99m Sestamibi - Stress images obtained [address] injection FINDINGS: Review of stress and rest SPECT images demonstrates large area of fixed perfusion defect along the la teral wall. This is corroborated on the polar maps. No discrete reversibility. Gated analysis shows l imited augmentation of the lateral wall with an estimated left ventricular ejection fraction of 66 %. TID is calculated at 0.86, within normal limits. IMPRESSION: Large area of fixed perfusion defect along the lateral wall could represent an area of old infarct. N o discrete reversibility is seen.
--- NOTE | 2020-12-30 16:20 | EST ---
EXERCISE STRESS Date: DECEMBER 30, 2020 AGE: 85 SEX: F HT: 4'3" WT: 215 lbs. PROTOCOL: Lexiscan STAGE: NA DURATION OF EXERCISE: NA HEART RATE REST: 97 BLOOD PRESSURE REST: 153/106 MAXIMUM HEART RATE ACHIEVED: 112 MAXIMUM BLOOD PRESSURE: 163/94 85% MPHR: 116 100% MPHR: 137 METS: NA INDICATIONS: Shortness of breath STRESS DATA: The Pretesting physical examination showed a heart rate of 97, pressure is 153/101 mmHg. Baseline EKG showed sinus mechanism. The patient was given 0.4 mg of Lexiscan over 15 seconds per protocol. Max heart rate was 111 beats per minute. Maximum pressure was 160/94 mmHg. Clinically the patient did not have any symptoms and the EKG did not show any significant ST or T-wave abnormalities concerning for ischemia. CONCLUSION: 1. Nondiagnostic electrocardiogram stress testing in response to Lexiscan. 2. Please follow up on the Cardiolite portion on separate report from Radiology. MMODL / IJN: [id number] /
== END | disposition home or self-care (01) ==
LOC: RADNMMAIN 09:08
PROVIDERS: ATTEND Nurse Practitioner
DX: Z01.812 Encounter for preprocedural laboratory examination (principal); E11.9 Type 2 diabetes mellitus without complications; I10 Essential (primary) hypertension
CPT/HCPCS: 93017; 78452; A9500; J2785

== ENCOUNTER → 2021-01-03 | Outpatient (CLI) | payer MEDICARE, BC ==
[2021-01-03 14:22] LABS: African American GFR (CKD) >90 (>60 ml/min/1.73 sqM); Blood Urea Nitrogen 21 mg/dL (7-17); Non-African American GFR(CKD) 88 (>60 ml/min/1.73 sqM)
--- NOTE | 2021-01-03 18:34 | ECHOF ---
Referral Reason:R07.9 chest pain I10 HTN MEASUREMENTS -------- HEIGHT: 137.2 cm WEIGHT: 96.2 kg BP: RVIDd: 4.6 cm (< 3.3) IVSd: 1.3 cm (0.6 - 1.1) LVIDd: 3.6 cm (3.9 - 5.3) LVPWd: 1.6 cm (0.6 - 1.1) IVSs: 1.5 cm LVIDs: 3.2 cm LVPWs: 1.2 cm MV E Shahid: 0.35 m/s MV DecT: 275 ms MV A Shahid: 0.95 m/s MV E/A Ratio: 0.37 RAP: 5.00 mmHg RVSP: 28.61 mmHg FINDINGS -------- Sinus rhythm. This was a technically difficult study with suboptimal views. Pt is post Covid. The left ventricular size is normal. There is mild concentric left ventricular hypertrophy. Overa ll left ventricular systolic function is low-normal with, an EF between 50 - 55 %. The right ventricle is severely enlarged. The left atrial size is normal. The right atrial size is normal. Lumason used There is mild aortic valve sclerosis. There is no evidence of aortic regurgitation. No mitral regurgitation. The tricuspid valve was not well visualized. Unable to estimate RVSP due to inadequate TR jet spect ral doppler profile. The pulmonic valve was not well visualized. Echo free space indicative of a pericardial fat pad. CONCLUSIONS -------- 1. Pt is post Covid. 2. The left ventricular size is normal. 3. There is mild concentric left ventricular hypertrophy. 4. Overall left ventricular systolic function is low-normal with, an EF between 50 - 55 %. 5. The right ventricle is severely enlarged. 6. The left atrial size is normal. 7. The right atrial size is normal. 8. Lumason used 9. There is mild aortic valve sclerosis. 10. No mitral regurgitation. 11. The tricuspid valve was not well visualized. 12. Unable to estimate RVSP due to inadequate TR jet spectral doppler profile. 13. The pulmonic valve was not well visualized. 14. Echo free space indicative of a pericardial fat pad. PST SPECIALIST: Tuyet Santiago RDCS
--- NOTE | 2021-01-06 08:05 | CT ---
EXAMINATION TYPE: CT chest w con DATE OF EXAM: 01/03/2021 COMPARISON: 03/17/2010 HISTORY: 85-year-old female U07.1, COVID-19. I10, hypertension. Chest pains, high blood pressure, pos t covid TECHNIQUE: Contiguous axial scanning of the chest after the administration of 100 mL of Isovue 300. Coronal/sagittal reconstructions performed. CT DLP: 847.50mGycm. Automatic exposure control utilized for a dose reduction. FINDINGS: Heart upper limits of normal in size. Scattered circumflex and RCA coronary artery calcifications are present. Minimal calcifications of the LAD. Borderline ectatic ascending aorta 3.6 cm and upper descending thoracic aorta at 3.0 cm. Mild atheros clerotic arch calcifications with conventional arch vessel branching anatomy. Scattered small mediastinal lymph nodes. Surgical clips in the right axilla are new from 2009. Low-density thickening along the deep right axi lla contacting the chest wall measuring 5.6 x 2.3 x 4.9 cm (axial image 14 and coronal image 40). 4 mm subpleural pulmonary nodule posterior right upper lobe is unchanged. 5 mm anterior right mid to lower lung pulmonary nodule, axial image 27 is unchanged. Strandy atelectasis or scarring in the lower lungs. No consolidation or pleural effusion. Small hiatal hernia. Right-sided renal cortical cysts measuring up to 2.7 cm. Mild stool burden. Bones: Advanced degenerative change of both shoulders. Moderate to advanced degenerative disc disease mid to lower thoracic spine. Grade 1 retrolisthesis T10-T11 and T11-T12. Accentuated mid thoracic ky phosis. Additional grade 1 anterolisthesis C7-T1, T1-T2, T2-T3, and T3-T4. IMPRESSION: 1. CAD with RCA and circumflex coronary artery calcifications. 2. Surgical clips in the right axilla. In the deep right axilla contacting the chest wall, there is a low density thickening measuring 5.6 x 4.9 x 2.3 cm, possible postoperative seroma. Correlate as to the reason for the patient's surgery. Targeted ultrasound to confirm a fluid collection rather than a bnormal soft tissue. 3. Strandy scarring or atelectasis in the lower lungs. No acute pulmonary process. 4. Small hiatal hernia. 5. Advanced degenerative changes within the spine. End-stage bilateral shoulder OA.
== END | disposition home or self-care (01) ==
LOC: RADECHMAIN 13:39
PROVIDERS: ATTEND Family Medicine
DX: I25.10 Atherosclerotic heart disease of native coronary artery without angina pectoris (principal); K44.9 Diaphragmatic hernia without obstruction or gangrene; M19.012 Primary osteoarthritis, left shoulder; M19.011 Primary osteoarthritis, right shoulder; G31.89 Other specified degenerative diseases of nervous system; E11.9 Type 2 diabetes mellitus without complications; I10 Essential (primary) hypertension; U07.1 COVID-19
CPT/HCPCS: 82565; 84520; 71260; 36415; C8929; Q9950; Q9967; 93306

== ENCOUNTER → 2021-03-11 | Outpatient (CLI) | payer MEDICARE, BC ==
--- NOTE | 2021-03-11 11:58 | XR ---
EXAMINATION TYPE: XR chest 2V DATE OF EXAM: 03/11/2021 COMPARISON: Chest x-ray September 24, 2020. CT chest January 03, 2021 HISTORY: Congestion. History of COVID in September. TECHNIQUE: Frontal and lateral views of the chest are obtained. FINDINGS: Osseous structures are demineralized. Advanced degenerative change bilateral glenohumeral joints right greater than left is redemonstrated. Persistent cardiomegaly with atherosclerotic and sl ightly ectatic thoracic aorta. No new focal airspace opacity, pleural effusion, or pneumothorax seen bilaterally. Cholecystectomy clips noted on lateral view IMPRESSION: Chronic changes and cardiomegaly without acute pulmonary process.
== END | disposition home or self-care (01) ==
LOC: RADXRMAIN 11:02
PROVIDERS: ATTEND Nurse Practitioner
DX: I51.7 Cardiomegaly (principal); J06.9 Acute upper respiratory infection, unspecified
CPT/HCPCS: 71046

== ENCOUNTER 2021-08-01 16:51 | Emergency (ER) | payer MEDICARE, BC ==
[2021-08-01 16:56] VITALS: TEMP 98.2
--- NOTE | 2021-08-01 17:34 | ED ---
General Adult HPI - General Chief complaint: Shortness of Breath Stated complaint: low o2 Time Seen by Provider: 08/01/21 17:19 Source: patient, RN notes reviewed, old records reviewed Mode of arrival: wheelchair Limitations: no limitations - History of Present Illness Initial comments: 86-year-old female presenting for evaluation of cough, congestion, and dyspnea. Patient states she was seen by her primary care physician, x-ray and Covid tested been ordered these were both reported as negative and the patient was sent to the emergency department for CT angiography to rule out pulmonary embolism. She had coronavirus approximately 10 months ago. She denies fever. She denies central chest pain. Denies lower extremity pain or swelling. - Related Data Home Medications Medication Instructions Recorded Confirmed Metoprolol Succinate [Toprol XL] 25 mg PO DAILY 01/21/16 08/01/21 Cholecalciferol [Vitamin D3 (25 100 mcg PO DAILY 09/15/20 08/01/21 Mcg = 1000 Iu)] Ketoconazole 2% Cream [Nizoral 2%] 1 applic TOPICAL DAILY 09/15/20 08/01/21 Levothyroxine Sodium [Synthroid] 125 mcg PO DAILY 09/15/20 08/01/21 Diclofenac Sodium Gel [Voltaren 2 gm TOPICAL QID PRN 08/01/21 08/01/21 Gel] traMADol HCL [Ultram] 50 mg PO QID 08/01/21 08/01/21 Previous Rx's Medication Instructions Recorded Losartan [Cozaar] 25 mg PO DAILY #30 tab 09/24/20 Amoxicillin/Potassium Clav 1 tab PO BID 10 Days #20 tab 08/01/21 [Augmentin 875-125 Tablet] Azithromycin [Zithromax Z-pack] 0 mg PO DIRECTED #6 tab 08/01/21 Allergies Allergy/AdvReac Type Severity Reaction Status Date / Time aspirin Allergy Unknown Verified 08/01/21 18:06 latex Allergy Unknown Verified 08/01/21 18:06 meperidine HCl [From Demerol] Allergy Rash/Hives Verified 08/01/21 18:06 morphine Allergy Unknown Verified 08/01/21 18:06 Nitrate Analogues Allergy Rash/Hives Verified 08/01/21 18:06 Sulfa (Sulfonamide Allergy Rash/Hives Verified 08/01/21 18:06 Antibiotics) tomato Allergy Rash/Hives Verified 08/01/21 18:06 codeine AdvReac Nausea Verified 08/01/21 18:06 [id number]-SlD Reductase AdvReac Nausea & Verified 08/01/21 18:06 Inhibitor Vomiting Review of Systems ROS Statement: Those systems with pertinent positive or pertinent negative responses have been documented in the HPI. ROS Other: All systems not noted in ROS Statement are negative. 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 Date of last positivie culture/infection: 2002 MDRO Source:: LEFT FOOT,LEFT SHOULDER, RIGHT HIP Past Surgical History: Appendectomy, Cholecystectomy, Hysterectomy, Joint Replacement, Orthopedic Surgery, Tonsillectomy Additional Past Surgical History / Comment(s): right hip replacement, hysterectomy, cholecystectomy, appendectomy Past Anesthesia/Blood Transfusion Reactions: No Reported Reaction Past Psychological History: No Psychological Hx Reported Smoking Status: Never smoker Past Alcohol Use History: None Reported Past Drug Use History: None Reported - Past Family History Daughter(s) History Unknown: Yes Father Family Medical History: Congestive Heart Failure (CHF), Diabetes Mellitus Additional Family Medical History / Comment(s): obesity General Exam Limitations: no limitations General appearance: alert, in no apparent distress Head exam: Present: atraumatic, normocephalic Eye exam: Present: normal appearance, PERRL ENT exam: Present: normal exam Neck exam: Present: normal inspection. Absent: tenderness, meningismus Respiratory exam: Present: normal lung sounds bilaterally. Absent: respiratory distress, wheezes, rales, rhonchi Cardiovascular Exam: Present: regular rate, normal rhythm GI/Abdominal exam: Present: soft. Absent: distended, tenderness, guarding, rebound Extremities exam: Present: normal inspection, normal capillary refill. Absent: pedal edema, calf tenderness Back exam: Present: normal inspection Neurological exam: Present: alert, oriented X3, CN II-XII intact. Absent: altered, motor sensory deficit Psychiatric exam: Present: normal affect, normal mood Skin exam: Present: warm, dry, intact. Absent: cyanosis, diaphoretic Course Vital Signs 08/01/21 08/01/21 08/01/21 16:53 17:45 17:54 Temperature 98.2 F Pulse Rate 86 79 Respiratory 18 18 18 Rate Blood Pressure 170/90 141/88 O2 Sat by Pulse 96 97 Oximetry 08/01/21 20:13 Temperature Pulse Rate 74 Respiratory 16 Rate Blood Pressure O2 Sat by Pulse Oximetry EKG Findings - EKG Comments: EKG Findings:: EKG: Sinus rhythm rate of 67 with PVC. AR interval less than 200 ms, QRS duration 90, QTC 411 Medical Decision Making - Medical Decision Making 86-year-old female was sent in by primary care physician for evaluation of possible pulmonary embolism. I had a very low suspicion for PE. However given the requested workup CT was performed. This was negative for central pulmonary embolism. There was some motion artifact in however I doubt PE at this time. There is some ground glass opacities as well as several findings and will require outpatient evaluation. Patient will be started on antibiotics and will follow-up with her primary care physician. - Lab Data Result diagrams: 08/01/21 18:04 08/01/21 18:04 Lab Results 08/01/21 08/01/21 08/01/21 Range/Units 18:04 18:04 18:04 WBC 5.6 (3.8-10.6) k/uL RBC 5.19 (3.80-5.40) m/uL Hgb 16.4 H (11.4-16.0) gm/dL Hct 49.8 H (34.0-46.0) % MCV 95.9 (80.0-100.0) fL MCH 31.6 (25.0-35.0) pg MCHC 33.0 (31.0-37.0) g/dL RDW 13.1 (11.5-15.5) % Plt Count 269 (150-450) k/uL MPV 7.1 Neutrophils % 44 % Lymphocytes % 38 % Monocytes % 7 % Eosinophils % 6 % Basophils % 2 % Neutrophils # 2.4 (1.3-7.7) k/uL Lymphocytes # 2.1 (1.0-4.8) k/uL Monocytes # 0.4 (0-1.0) k/uL Eosinophils # 0.3 (0-0.7) k/uL Basophils # 0.1 (0-0.2) k/uL PT 11.2 (9.0-12.0) sec INR 1.0 (<1.2) APTT 26.6 (22.0-30.0) sec Sodium 137 (137-145) mmol/L Potassium 4.2 (3.5-5.1) mmol/L Chloride 102 (98-107) mmol/L Carbon Dioxide 29 (22-30) mmol/L Anion Gap 6 mmol/L BUN 24 H (7-17) mg/dL Creatinine 0.69 (0.52-1.04) mg/dL Est GFR (CKD-EPI)AfAm >90 (>60 ml/min/1.73 sqM) Est GFR (CKD-EPI)NonAf 80 (>60 ml/min/1.73 sqM) Glucose 94 (74-99) mg/dL Plasma Lactic Acid Darrian (0.7-2.0) mmol/L Calcium 9.6 (8.4-10.2) mg/dL Magnesium 1.9 (1.6-2.3) mg/dL Total Bilirubin 0.9 (0.2-1.3) mg/dL AST 28 (14-36) U/L ALT 17 (4-34) U/L Alkaline Phosphatase 98 (38-126) U/L Troponin I (0.000-0.034) ng/mL NT-Pro-B Natriuret Pep pg/mL Total Protein 6.8 (6.3-8.2) g/dL Albumin 4.2 (3.5-5.0) g/dL 08/01/21 08/01/21 08/01/21 Range/Units 18:04 18:04 18:04 WBC (3.8-10.6) k/uL RBC (3.80-5.40) m/uL Hgb (11.4-16.0) gm/dL Hct (34.0-46.0) % MCV (80.0-100.0) fL MCH (25.0-35.0) pg MCHC (31.0-37.0) g/dL RDW (11.5-15.5) % Plt Count (150-450) k/uL MPV Neutrophils % % Lymphocytes % % Monocytes % % Eosinophils % % Basophils % % Neutrophils # (1.3-7.7) k/uL Lymphocytes # (1.0-4.8) k/uL Monocytes # (0-1.0) k/uL Eosinophils # (0-0.7) k/uL Basophils # (0-0.2) k/uL PT (9.0-12.0) sec INR (<1.2) APTT (22.0-30.0) sec Sodium (137-145) mmol/L Potassium (3.5-5.1) mmol/L Chloride (98-107) mmol/L Carbon Dioxide (22-30) mmol/L Anion Gap mmol/L BUN (7-17) mg/dL Creatinine (0.52-1.04) mg/dL Est GFR (CKD-EPI)AfAm (>60 ml/min/1.73 sqM) Est GFR (CKD-EPI)NonAf (>60 ml/min/1.73 sqM) Glucose (74-99) mg/dL Plasma Lactic Acid Darrian 1.2 (0.7-2.0) mmol/L Calcium (8.4-10.2) mg/dL Magnesium (1.6-2.3) mg/dL Total Bilirubin (0.2-1.3) mg/dL AST (14-36) U/L ALT (4-34) U/L Alkaline Phosphatase (38-126) U/L Troponin I <0.012 (0.000-0.034) ng/mL NT-Pro-B Natriuret Pep 67 pg/mL Total Protein (6.3-8.2) g/dL Albumin (3.5-5.0) g/dL Disposition Clinical Impression: PNA (pneumonia) Disposition: HOME SELF-CARE Instructions (If sedation given, give patient instructions): Bacterial Pneumonia (ED) Prescriptions: Amoxicillin/Potassium Clav [Augmentin 875-125 Tablet] 1 tab PO BID 10 Days #20 tab Azithromycin [Zithromax Z-pack] 0 mg PO DIRECTED #6 tab Is patient prescribed a controlled substance at d/c from ED?: No Referrals: Brock Molina MD [Primary Care Provider] - 1-2 days Time of Disposition: 20:46
[2021-08-01 17:54] VITALS: BP 141/88
[2021-08-01 18:18] LABS: Basophils # (A) 0.1 k/uL (0-0.2); Basophils % (A) 2 %; Eosinophils # (A) 0.3 k/uL (0-0.7); Eosinophils % (A) 6 %; HCT 49.8 % (34.0-46.0); HGB 16.4 gm/dL (11.4-16.0); Lymphocytes # (A) 2.1 k/uL (1.0-4.8); Lymphocytes % (A) 38 %; MCH 31.6 pg (25.0-35.0); MCV 95.9 fL (80.0-100.0); Mean Platelet Volume 7.1; Monocytes # (A) 0.4 k/uL (0-1.0); Monocytes % (A) 7 %; Neutrophils # (A) 2.4 k/uL (1.3-7.7); Neutrophils % (A) 44 %; Platelet Count 269 k/uL (150-450); RBC 5.19 m/uL (3.80-5.40); RDW 13.1 % (11.5-15.5); WBC 5.6 k/uL (3.8-10.6)
[2021-08-01 18:30] LABS: ALT 17 U/L (4-34); AST 28 U/L (14-36); African American GFR (CKD) >90 (>60 ml/min/1.73 sqM); Albumin 4.2 g/dL (3.5-5.0); Alkaline Phosphatase 98 U/L (38-126); Anion Gap 6 mmol/L; Blood Urea Nitrogen 24 mg/dL (7-17); Calcium 9.6 mg/dL (8.4-10.2); Carbon Dioxide 29 mmol/L (22-30); Chloride 102 mmol/L (98-107); Glucose 94 mg/dL (74-99); Magnesium 1.9 mg/dL (1.6-2.3); Non-African American GFR(CKD) 80 (>60 ml/min/1.73 sqM); Potassium 4.2 mmol/L (3.5-5.1); Sodium 137 mmol/L (137-145); Total Bilirubin 0.9 mg/dL (0.2-1.3); Total Protein 6.8 g/dL (6.3-8.2)
[2021-08-01 18:48] LABS: Partial Thromboplastin Time 26.6 sec (22.0-30.0); Prothrombin Time 11.2 sec (9.0-12.0)
[2021-08-01 20:14] VITALS: PULSE 74; RESP 16
--- NOTE | 2021-08-01 20:36 | CT ---
EXAMINATION TYPE: CT chest angio for PE DATE OF EXAM: 08/01/2021 COMPARISON: 01/03/2021 HISTORY: SHANNAN, Low O2 TECHNIQUE: CT scan of the chest performed with contrast pulmonary embolism protocol. MIP reformats available. Th ree-D reconstruction was not performed. CT DLP: 605.2 mGycm Automated exposure control for dose reduction was used. FINDINGS: There is motion artifact which limits evaluation of the subsegmental and segmental pulmonary arteries . No filling defects are seen in the remaining pulmonary arteries. Pulmonary Trunk diameter 2.9 to 3.0 cm, borderline enlarged. The thoracic aorta is nonaneurysmal. Ath erosclerotic calcification seen in the intrathoracic aorta with some soft plaquing. The heart is normal in size. No pericardial effusion. Contrast slightly refluxes into the ureter vena cava but does not reach the hepatic veins. Coronary arterial calcifications noted. No focal airspace opacity, pneumothorax or pleural effusion seen. There are mild nonspecific groundglass opacities in the inferior aspect of the left upper lobe and aranda perior aspect of the left lower lobe. Lung base atelectasis. No lung mass or significant lung nodule appreciated. Tiny lung nodules in the lung bases difficult to exclude due to presence of atelectasis. The airways are patent. No endobronchial lesion seen. There is mild diffuse bronchiectasis. No mediastinal or hilar enlarged lymph nodes seen. No axillary enlarged lymph nodes appreciated. There is slight asymmetry of the laryngeal airway (there is 401 image 1) with an apparent opacity in the left performed sinus region. This is incompletely visualized and is present on the most superior image of the study. Small gastroesophageal hiatal hernia is noted. The upper abdomen is otherwise remarkable. Scoliosis of the spine is noted. Moderate severe degenerative changes are seen in the thoracic spine. No bony spinal canal stenosis. No compression fracture deformity seen. No acute fracture or dislocat ion. Moderate severe bilateral right greater than left osteoarthrosis of the glenohumeral joints note d. IMPRESSION: 1. LIMITED EVALUATION OF SEGMENTAL AND SUBSEGMENTAL PULMONARY ARTERIES DUE TO MOTION. WITHIN THE LIMI TATION OF THE STUDY, NO EVIDENCE FOR ACUTE PULMONARY EMBOLISM. 2. NONSPECIFIC GROUNDGLASS OPACITIES IN THE LEFT UPPER AND LOWER LOBES, DIFFERENTIAL WOULD INCLUDE AT ELECTASIS, EDEMA, INFECTION OR INFLAMMATION. 3. MILD BRONCHIECTASIS. 4. LIMITED VISUALIZATION AND CHARACTERIZATION OF ASYMMETRY OF THE PIRIFORM SINUSES, DIRECT VISUALIZAT ION OR CORRELATION WITH NONURGENT CT OF THE NECK MAY BE BENEFICIAL. 5. SEE BODY OF REPORT FOR ADDITIONAL INCIDENTALS.
[2021-08-01] MEDS ORDERED: AZITHROMYCIN 500 MG TAB PO STA (20:46)
[2021-08-01] MEDS ORDERED: AMOXIC-POT CLAV 875-125MG 1 EACH TAB PO STA (20:53)
== END 2021-08-01 21:42 | disposition home or self-care (01) ==
LOC: EC 16:51
DX: J18.9 Pneumonia, unspecified organism (principal); E07.9 Disorder of thyroid, unspecified; E11.9 Type 2 diabetes mellitus without complications; I10 Essential (primary) hypertension; Z79.890 Hormone replacement therapy; Z88.6 Allergy status to analgesic agent; Z91.040 Latex allergy status; Z88.5 Allergy status to narcotic agent; Z88.2 Allergy status to sulfonamides; Z91.018 Allergy to other foods
CPT/HCPCS: 36415; 93005; 83880; 80053; 83605; 83735; 84484; 85025; 85610; 85730; 71275; 99285; Q9967

== ENCOUNTER → 2021-08-01 | Outpatient (CLI) | payer MEDICARE, BC ==
--- NOTE | 2021-08-01 16:41 | XR ---
EXAMINATION TYPE: XR chest 2V DATE OF EXAM: 08/01/2021 COMPARISON: Chest x-ray 03/11/2021 HISTORY: Upper respiratory infection TECHNIQUE: Frontal and lateral views of the chest are obtained. FINDINGS: There is a kyphosis centered at the upper thoracic spine. Multilevel spondylosis is presen t. Surgical clips are present within the abdomen. The aorta is dense. No evident airspace disease, pn eumothorax, or pleural effusion. Heart appears enlarged possibly due to rotation. Arthropathy noted i n the shoulders. Aorta is dense. IMPRESSION: Enlarged appearance of the heart may be due to rotation. No evident pneumonia.
== END | disposition home or self-care (01) ==
LOC: RADXRMAIN 16:14
PROVIDERS: ATTEND Nurse Practitioner Family
DX: J06.9 Acute upper respiratory infection, unspecified (principal)
CPT/HCPCS: 71046

== ENCOUNTER → 2022-06-15 | Outpatient (CLI) | payer MEDICARE, BC ==
--- NOTE | 2022-06-15 15:09 | US ---
EXAMINATION TYPE: US kidneys/renal and bladder DATE OF EXAM: 06/15/2022 COMPARISON: CT September 19, 2020 CLINICAL HISTORY: I50.9, N390 uti unsp. UTI exam limitations had to scan patient in wheel chair. EXAM MEASUREMENTS: Right Kidney: 11.1 x 4.0 x 3.3 cm Left Kidney: 10.7 x 5.4 x 4.6 cm Right Kidney: Cystic area upper pole 2.2 x 2.7 x 1.9 cm. Left Kidney: Cystic area upper pole 1.5 x 1.2 x 1.2 cm. Bladder: anechoic Bilateral Jets seen: no * There is no evidence for hydronephrosis at this point in time. When scanning right kidney adjacent li enrico is heterogeneously hyperechoic consistent with fatty infiltrative hepatocellular disease. No neph rolithiasis is seen. Technologist marked a small simple-appearing thin-walled cysts in both kidneys. The urinary bladder is not greatly distended. Bilateral distal ureter jets are seen. IMPRESSION: Suboptimal study. No hydronephrosis is seen bilaterally.
== END | disposition home or self-care (01) ==
LOC: RADUSWWP 14:18
PROVIDERS: ATTEND Family Medicine
DX: N39.0 Urinary tract infection, site not specified (principal); I50.9 Heart failure, unspecified
CPT/HCPCS: 76770

== ENCOUNTER → 2023-08-11 | Outpatient (CLI) | payer MEDICARE, BC ==
--- NOTE | 2023-08-11 14:23 | XR ---
EXAMINATION TYPE: XR chest 2V DATE OF EXAM: 08/11/2023 COMPARISON: 08/01/2021 HISTORY: Shortness of breath TECHNIQUE: Frontal and lateral views of the chest are obtained. FINDINGS: Scattered senescent parenchymal changes noted. Hyperinflation compatible with COPD. No evidence for infiltrate. No evidence for atelectasis. Heart size is stable. Mediastinal structures are stable and grossly unremarkable. No evidence for hilar prominence. Degenerative changes dorsal spine. IMPRESSION: 1. No evidence for acute pulmonary disease.
== END | disposition home or self-care (01) ==
LOC: RADXRMAIN 13:57
PROVIDERS: ATTEND Family Medicine
DX: J18.9 Pneumonia, unspecified organism (principal); R06.02 Shortness of breath
CPT/HCPCS: 71046

== ENCOUNTER 2024-11-18 20:57 | Inpatient (IN) | payer BC, MEDICARE ==
--- NOTE | 2024-11-18 21:32 | ED ---
General Adult HPI - General Source: patient, family, EMS, RN notes reviewed, old records reviewed Mode of arrival: EMS Limitations: no limitations <Vani Abraham - Last Filed: 11/18/24 22:55> <Pieter Ch - Last Filed: 11/28/24 09:08> - General Stated complaint: Chest pain - History of Present Illness Initial comments: 89-year-old female presents with complaints of left-sided chest pain. Reports earlier today when she was taking a bath she noticed that her left hand had turned blue/purple and felt very cold so she placed her hand back in the tub and noticed that it turned back to normal color. States after this she was in her mobile chair going to the bathroom, stood up to get onto the toilet and noticed that her legs were very weak. Reports when she is on the toilet she started feeling left-sided chest pain that did not radiate. States at that time the pain was a 4 out of 10 and dull in nature. States that the pain comes and goes and is not constant. Reports after feeling this pain she called 911 to come to the emergency room. (Vani Abraham) - Related Data Home Medications Medication Instructions Recorded Confirmed Metoprolol Succinate [Toprol XL] 25 mg PO DAILY 01/21/16 11/19/24 Ketoconazole 2% Cream [Nizoral 2%] 1 applic TOPICAL BID PRN 09/15/20 11/19/24 Diclofenac Sodium Gel [Voltaren 1% 2 gm TOPICAL QID PRN 08/01/21 11/19/24 Gel] traMADol HCL [Ultram] 50 mg PO QID PRN 08/01/21 11/19/24 ALPRAZolam [Xanax] 0.25 mg PO DAILY PRN 11/19/24 11/19/24 Albuterol Nebulized [Ventolin 2.5 mg INHALATION RT-QID PRN 11/19/24 11/19/24 Nebulized] Ergocalciferol (Vitamin D2) 1,250 mcg PO HERNANDEZ 11/19/24 11/19/24 [Drisdol (GEQ) 1,250 MCG (50,000 IU)] Ezetimibe [Zetia] 10 mg PO DAILY 11/19/24 11/19/24 Furosemide [Lasix] 40 mg PO DAILY PRN 11/19/24 11/19/24 Levothyroxine Sodium [Synthroid] 150 mcg PO DAILY 11/19/24 11/19/24 Previous Rx's Medication Instructions Recorded Losartan [Cozaar] 25 mg PO DAILY #30 tab 09/24/20 Allergies Allergy/AdvReac Type Severity Reaction Status Date / Time aspirin Allergy Unknown Verified 11/19/24 09:25 latex Allergy Unknown Verified 11/19/24 09:25 meperidine HCl [From Demerol] Allergy Rash/Hives Verified 11/19/24 09:25 morphine Allergy Unknown Verified 11/19/24 09:25 Nitrate Analogues Allergy Rash/Hives Verified 11/19/24 09:25 Sulfa (Sulfonamide Allergy Rash/Hives Verified 11/19/24 09:25 Antibiotics) tomato Allergy Rash/Hives Verified 11/19/24 09:25 codeine AdvReac Nausea Verified 11/19/24 09:25 [id number] Reductase AdvReac Nausea & Verified 11/19/24 09:25 Inhibitor Vomiting Review of Systems ROS Other: All systems not noted in ROS Statement are negative. <Vani Abraham - Last Filed: 11/18/24 22:55> ROS Other: All systems not noted in ROS Statement are negative. <Pieter Ch - Last Filed: 11/28/24 09:08> ROS Statement: Those systems with pertinent positive or pertinent negative responses have been documented in the HPI. 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 Date of last positivie culture/infection: 2002 MDRO Source:: LEFT FOOT,LEFT SHOULDER, RIGHT HIP Past Surgical History: Appendectomy, Cholecystectomy, Hysterectomy, Joint Replacement, Orthopedic Surgery, Tonsillectomy Additional Past Surgical History / Comment(s): right hip replacement, hysterectomy, cholecystectomy, appendectomy Past Anesthesia/Blood Transfusion Reactions: No Reported Reaction Past Psychological History: No Psychological Hx Reported Smoking Status: Never smoker Past Alcohol Use History: None Reported Past Drug Use History: None Reported - Past Family History Daughter(s) History Unknown: Yes Father Family Medical History: Congestive Heart Failure (CHF), Diabetes Mellitus Additional Family Medical History / Comment(s): obesity <Vani Abraham - Last Filed: 11/18/24 22:55> General Exam Limitations: no limitations <Vani Abraham - Last Filed: 11/18/24 22:55> - General Exam Comments Initial Comments: GENERAL: In no apparent distress at the time of examination. Pleasant and cooperative. Morbidly obese. HEENT: Head is atraumatic, normocephalic. Pupils are equal, round, and reactive to light. Sclerae anicteric. Conjunctivae are clear. Mucus membranes of the mouth are moist. Neck is supple. RESPIRATORY: Clear to auscultation. No wheezes, rales, or rhonchi. No use of accessory muscles. Patient maintaining oxygen saturation greater than 92%. No chest wall tenderness is noted on palpation or with deep breathing. CARDIOVASCULAR: Regular rate and rhythm. S1 and S2 noted. No systolic or diastolic murmur auscultated. No JVD noted. No S3 or S4 noted. GASTROINTESTINAL: No distention noted. Abdomen soft and round. Normal active bowel sounds auscultated x 4 quadrants. No pain or tenderness noted upon palpation. INTEGUMENTARY: No cyanosis. No jaundice. No rashes noted. No cellulitis noted. EXTREMITIES: 2+ peripheral pulses. No evidence of peripheral edema. No calf tenderness noted. PSYCHIATRIC: Awake, alert, and oriented X 3. Appropriate affect. Intact judgement and insight. (Vani Abraham) Course Vital Signs 11/18/24 11/18/24 11/18/24 20:58 21:00 23:00 Temperature 99.0 F Pulse Rate 75 97 Pulse Rate [ 91 Computer Hardware Technician ] Respiratory 24 25 H Rate Blood Pressure 140/92 111/69 O2 Sat by Pulse 92 L 92 L Oximetry 11/19/24 11/19/24 11/19/24 00:08 01:08 02:08 Temperature Pulse Rate 91 80 81 Pulse Rate [ Computer Hardware Technician ] Respiratory 28 H 27 H 24 Rate Blood Pressure 122/73 99/67 109/70 O2 Sat by Pulse 91 L 93 L 92 L Oximetry 11/19/24 11/19/24 11/19/24 03:08 04:00 05:00 Temperature Pulse Rate 78 79 72 Pulse Rate [ Computer Hardware Technician ] Respiratory 25 H 25 H 22 Rate Blood Pressure 106/65 109/72 107/69 O2 Sat by Pulse 92 L 92 L 93 L Oximetry 11/19/24 11/19/24 11/19/24 06:00 10:00 12:00 Temperature Pulse Rate 77 73 76 Pulse Rate [ Computer Hardware Technician ] Respiratory 22 17 17 Rate Blood Pressure 120/83 146/110 138/77 O2 Sat by Pulse 93 L 95 98 Oximetry 11/19/24 11/19/24 13:00 16:00 Temperature 102.7 F H Pulse Rate 75 89 Pulse Rate [ Computer Hardware Technician ] Respiratory 20 24 Rate Blood Pressure 117/71 134/94 O2 Sat by Pulse 94 L 98 Oximetry Medical Decision Making - Lab Data Result diagrams: 11/18/24 21:05 11/18/24 21:05 <Vani Abraham - Last Filed: 11/18/24 22:55> - Lab Data Result diagrams: 11/27/24 05:39 11/27/24 05:39 <Pieter Ch - Last Filed: 11/28/24 09:08> - Medical Decision Making Was pt. sent in by a medical professional or institution (Dr. PA, BOND MANAGER, urgent care, hospital, or correction...) When possible be specific @ -No Did you speak to anyone other than the patient for history (EMS, parent, family, police, friend...)? What history was obtained from this source @ -Yes, also spoke with family Did you review nursing and triage notes (agree or disagree)? Why? @ -I reviewed and agree with nursing and triage notes Were old charts reviewed (outside hosp., previous admission, EMS record, old EKG, old radiological studies, urgent care reports/EKG's, correction records)? Report findings @ -No old charts were reviewed Differential Diagnosis? @ -Differential Chest Pain: Stable Angina, Unstable Angina, STEMI, NSTEMI Aortic Dissection, Pneumothorax, Musculoskeletal, Esophageal Spasm GERD, Cholecystitis, Pancreatitis, Zoster, this is not meant to be an all-inclusive list. EKG interpreted by me (3pts min.). @ -Sinus rhythm with some preventricular complexes X-rays interpreted by me (1pt min.). @ -Shows evidence of cardiomegaly otherwise no significant abnormalities CT interpreted by me (1pt min.). @ -None done U/S interpreted by me (1pt. min.). @ -None done What testing was considered but not performed or refused? (CT, X-rays, U/S, labs)? Why? @ -None What meds were considered but not given or refused? Why? @ -Nitro was not given as the patient is allergic. Did you discuss the management of the patient with other professionals (professionals i.e. , PA, BOND MANAGER, lab, RT, psych nurse, social services assistant, design center consultant, teacher, prison officer, case folder)? Give summary @ -No Was smoking cessation discussed for >3mins.? @ -No Was critical care preformed (if so, how long)? @ -No Were there social determinants of health that impacted care today? How? (Homelessness, low income, unemployed, alcoholism, drug addiction, transportation, low edu. Level, literacy, decrease access to med. care, nursing home, rehab)? @ -No Was there de-escalation of care discussed even if they declined (Discuss DNR or withdrawal of care, Hospice)? DNR status @ -No What co-morbidities impacted this encounter? (DM, HTN, Smoking, COPD, CAD, Cancer, CVA, ARF, Chemo, Hep., AIDS, mental health diagnosis, sleep apnea, morbid obesity)? @ -None Was patient admitted / discharged? Hospital course, mention meds given and route, prescriptions, significant lab abnormalities, going to OR and other pertinent info. @ -Admitted for observation, 89-year-old female presenting with left-sided chest pain that does not radiate. Patient refused nitro in the ambulance and routes to the hospital. EKG showed normal sinus rhythm with some PVCs, chest x-ray showed cardiomegaly but no other acute was relatively within normal limits and slightly elevated white count but troponins were negative. Based on the nature of the patient's story about her chest pain it was very atypical was decided that she should be observed at least with telemetry and to draw the next troponins to be fully sure there was no cardiac event going on. Undiagnosed new problem with uncertain prognosis? @ -No Drug Therapy requiring intensive monitoring for toxicity (Heparin, Nitro, Insulin, Cardizem)? @ -No Were any procedures done? @ -No Diagnosis/symptom? @ -Atypical chest pain Acute, or Chronic, or Acute on Chronic? @ -Acute Uncomplicated (without systemic symptoms) or Complicated (systemic symptoms)? @ -Default Side effects of treatment? @ -No Exacerbation, Progression, or Severe Exacerbation? @ -No Poses a threat to life or bodily function? How? (Chest pain, USA, CT, pneumonia, PE, COPD, DKA, ARF, appy, cholecystitis, CVA, Diverticulitis, Homicidal, Suicidal, threat to staff... and all critical care pts) @ -Yes, atypical chest pain can be a sign of CT which could lead to arrhythmias, cardiogenic shock which can lead to . (Vani Abraham) I personally saw the patient and performed the critical portion of the service. I discussed the patient care with the resident. I directed management, care planning and final disposition of the patient. This includes, but not limited to, review of all lab work, radiological studies, EKG's, consultations, vital signs, and nursing notes. EKG interpreted by me (3pts min.) @ [I interpreted the twelve-lead ECG to show sinus rhythm with frequent PVCs, rate 96 bpm. Normal intervals, normal axis. No acute ST segment changes. X-Rays interpreted by me (1 pt min.) @ [I interpreted the patient's chest x-ray to show presence of vascular congestion. No acute infiltrate or pneumothorax. CT interpreted by me ( 1pt min.) @ [none] U/S interpreted by me (1 pt min.) @ [none] Critical care time of [0] minutes excluding separately billable procedures was spent in conjunction with critical care activities provided by the Resident and Attending simultaneously. I was present during [no procedures] for all critical portions of the procedure and as immediately available to furnish service during the entire procedure. (Pieter Ch) - Lab Data Lab Results 11/18/24 11/18/24 11/18/24 Range/Units 21:05 21:05 21:05 WBC 12.62 H (4.50-10.00) 10*3/uL RBC 4.85 (4.10-5.20) 10*6/uL Hgb 15.4 H (12.0-15.0) g/dL Hct 44.8 (37.2-46.3) % MCV 92.4 (80.0-97.0) fL MCH 31.8 (27.0-32.0) pg MCHC 34.4 (32.0-37.0) g/dL Plt Count 260 (140-440) 10*3/uL MPV 10.0 (9.5-12.2) fL Immature Gran % (Auto) 0.3 % Neutrophils % 85.4 % Lymphocytes % 7.1 % Monocytes % 5.6 % Eosinophils % 1.0 % Basophils % 0.6 % Immature Gran # 0.04 (0.00-0.04) 10*3/uL Neutrophils # 10.78 H (1.80-7.70) 10*3/uL Lymphocytes # 0.89 L (0.90-5.00) 10*3/uL Monocytes # 0.71 (0.20-1.00) 10*3/uL Eosinophils # 0.12 (0.04-0.35) 10*3/uL Basophils # 0.08 (0.00-0.10) 10*3/uL PT 12.0 (10.0-12.5) sec INR 1.1 (<1.2) APTT 24.3 (22.0-30.0) sec Sodium 136 L (137-145) mmol/L Potassium 3.9 (3.5-5.1) mmol/L Chloride 103 (98-107) mmol/L Carbon Dioxide 20 L (22-30) mmol/L Anion Gap 13 mmol/L BUN 10 (7-17) mg/dL Creatinine 0.54 (0.52-1.04) mg/dL Est GFR (CKD-EPI)AfAm >90 (>60 ml/min/1.73 sqM) Est GFR (CKD-EPI)NonAf 85 (>60 ml/min/1.73 sqM) Glucose 157 H (74-99) mg/dL Calcium 9.6 (8.4-10.2) mg/dL Magnesium 1.5 L (1.6-2.3) mg/dL Total Bilirubin 1.4 H (0.2-1.3) mg/dL AST 30 (14-36) U/L ALT 14 (4-34) U/L Alkaline Phosphatase 114 (38-126) U/L Troponin I (0.000-0.034) ng/mL Total Protein 6.5 (6.3-8.2) g/dL Albumin 4.2 (3.5-5.0) g/dL 11/18/24 Range/Units 21:05 WBC (4.50-10.00) 10*3/uL RBC (4.10-5.20) 10*6/uL Hgb (12.0-15.0) g/dL Hct (37.2-46.3) % MCV (80.0-97.0) fL MCH (27.0-32.0) pg MCHC (32.0-37.0) g/dL Plt Count (140-440) 10*3/uL MPV (9.5-12.2) fL Immature Gran % (Auto) % Neutrophils % % Lymphocytes % % Monocytes % % Eosinophils % % Basophils % % Immature Gran # (0.00-0.04) 10*3/uL Neutrophils # (1.80-7.70) 10*3/uL Lymphocytes # (0.90-5.00) 10*3/uL Monocytes # (0.20-1.00) 10*3/uL Eosinophils # (0.04-0.35) 10*3/uL Basophils # (0.00-0.10) 10*3/uL PT (10.0-12.5) sec INR (<1.2) APTT (22.0-30.0) sec Sodium (137-145) mmol/L Potassium (3.5-5.1) mmol/L Chloride (98-107) mmol/L Carbon Dioxide (22-30) mmol/L Anion Gap mmol/L BUN (7-17) mg/dL Creatinine (0.52-1.04) mg/dL Est GFR (CKD-EPI)AfAm (>60 ml/min/1.73 sqM) Est GFR (CKD-EPI)NonAf (>60 ml/min/1.73 sqM) Glucose (74-99) mg/dL Calcium (8.4-10.2) mg/dL Magnesium (1.6-2.3) mg/dL Total Bilirubin (0.2-1.3) mg/dL AST (14-36) U/L ALT (4-34) U/L Alkaline Phosphatase (38-126) U/L Troponin I <0.012 (0.000-0.034) ng/mL Total Protein (6.3-8.2) g/dL Albumin (3.5-5.0) g/dL Disposition <Vani Abraham - Last Filed: 11/18/24 22:55> <Pieter Ch - Last Filed: 11/28/24 09:08> Clinical Impression: Atypical chest pain Disposition: ADMITTED IP TO THIS HOSP Condition: Good
[2024-11-18 21:48] LABS: Basophils # (A) 0.08 10*3/uL (0.00-0.10); Basophils % (A) 0.6 %; Eosinophils # (A) 0.12 10*3/uL (0.04-0.35); HCT 44.8 % (37.2-46.3); HGB 15.4 g/dL (12.0-15.0); Lymphocytes # (A) 0.89 10*3/uL (0.90-5.00); Lymphocytes % (A) 7.1 %; MCH 31.8 pg (27.0-32.0); MCHC 34.4 g/dL (32.0-37.0); MCV 92.4 fL (80.0-97.0); Monocytes # (A) 0.71 10*3/uL (0.20-1.00); Monocytes % (A) 5.6 %; Neutrophils # (A) 10.78 10*3/uL (1.80-7.70); Neutrophils % (A) 85.4 %; Platelet Count 260 10*3/uL (140-440); RBC 4.85 10*6/uL (4.10-5.20); RDW 13.4 % (11.5-14.5); WBC 12.62 10*3/uL (4.50-10.00)
--- NOTE | 2024-11-18 21:56 | XR ---
EXAMINATION TYPE: XR chest 2V DATE OF EXAM: 11/18/2024 9:50 PM COMPARISON: Chest radiographs from 08/11/2023. CLINICAL INDICATION: Female, 89 years old with history of Chest Pain; [facility] TECHNIQUE: XR chest 2V Frontal and lateral views of the chest. FINDINGS: Lungs/Pleura: There is no evidence of pleural effusion, focal consolidation, or pneumothorax. Pulmonary vascularity: Pulmonary vascular congestion. Heart/mediastinum: Cardiomediastinal silhouette is enlarged. Musculoskeletal: No acute osseous pathology. Deformity to the right proximal humerus suggestive of pr ior fracture and/or severe advanced degeneration. Findings not significantly changed from prior. Other findings: None IMPRESSION: Cardiomegaly and mild pulmonary vascular congestion. Correlate with BNP for congestive heart failure. [facility], , 11/18/2024 9:54 PM
[2024-11-18 21:59] LABS: INR 1.1 (<1.2); Partial Thromboplastin Time 24.3 sec (22.0-30.0)
[2024-11-18 22:02] LABS: ALT 14 U/L (4-34); AST 30 U/L (14-36); African American GFR (CKD) >90 (>60 ml/min/1.73 sqM); Albumin 4.2 g/dL (3.5-5.0); Alkaline Phosphatase 114 U/L (38-126); Anion Gap 13 mmol/L; Blood Urea Nitrogen 10 mg/dL (7-17); Calcium 9.6 mg/dL (8.4-10.2); Carbon Dioxide 20 mmol/L (22-30); Chloride 103 mmol/L (98-107); Glucose 157 mg/dL (74-99); Magnesium 1.5 mg/dL (1.6-2.3); Non-African American GFR(CKD) 85 (>60 ml/min/1.73 sqM); Potassium 3.9 mmol/L (3.5-5.1); Sodium 136 mmol/L (137-145); Total Bilirubin 1.4 mg/dL (0.2-1.3); Total Protein 6.5 g/dL (6.3-8.2)
[2024-11-18] MEDS ORDERED: NALOXONE 0.4 MG/ML 1 ML VIAL IV PRN (22:33)
[2024-11-18] MEDS: traMADol 50 MG TAB PO STA (22:56)
[2024-11-19] MEDS: LEVOTHYROXINE 125 MCG TAB PO SCH (06:56)
[2024-11-19] MEDS: ACETAMINOPHEN TAB 325 MG TAB PO PRN (06:57)
[2024-11-19] MEDS: LOSARTAN 25 MG TAB PO SCH (10:20)
[2024-11-19] MEDS: traMADol 50 MG TAB PO SCH (10:20)
[2024-11-19] MEDS: METOPROLOL SUCCINATE (ER) 25 MG TAB.ER.24H PO SCH (10:20)
[2024-11-19] MEDS ORDERED: DICLOFENAC SODIUM GEL 100 GM TUBE TOPICAL PRN (10:57)
[2024-11-19] MEDS ORDERED: ALBUTEROL NEBULIZED 2.5 MG/3 ML INHALATION PRN (10:57)
--- NOTE | 2024-11-19 11:06 | P.HPIM ---
History of Present Illness Wavc-kini-bad pleasant female came in complaints of left-sided chest pain pressure-like sensation 4/10 in severity dull in nature nonradiating. Patient was also complaining of shaking appears to be secondary to increased air conditioning. Patient also complaining of bruise discoloration of the hands and feet at the same time. Does not appear to be related to her chest pain. Patient has chest x-ray which was read as pulmonary congestion although because of the patient's body habitus I cannot really interpret that x-ray. Will obtain a proBNP patient denied any fever chills nausea vomiting. Patient has some questionable dysuria at the end of urinary stream will obtain a urinalysis and urine cultures patient was having cough but chest x-ray is not consistent with pneumonia. REVIEW OF SYSTEMS: All other systems are negative except those mentioned in the HPI PHYSICAL EXAMINATION: GENERAL: The patient is alert and oriented x3, not in any acute distress. Well developed, well nourished. HEENT: Pupils are round and equally reacting to light. EOMI. No scleral icterus. No conjunctival pallor. Normocephalic, atraumatic. No pharyngeal erythema. No thyromegaly. CARDIOVASCULAR: S1 and S2 present. No murmurs, rubs, or gallops. PULMONARY: Chest is clear to auscultation, no wheezing or crackles. ABDOMEN: Soft, nontender, nondistended, normoactive bowel sounds. No palpable organomegaly. MUSCULOSKELETAL: No joint swelling or deformity. EXTREMITIES: No cyanosis, clubbing, or pedal edema. NEUROLOGICAL: Gross neurological examination did not reveal any focal deficits. SKIN: No rashes. Assessment and plan -Chest pain rule out acute coronary syndromes EKG with no acute ST-T wave changes troponins are negative cardiology will evaluate the patient stress test as per cardiology recommendation - Chills no clear evidence of infection at this time considering her dysuria will obtain urinalysis with cultures - Type 2 diabetes mellitus patient was resumed on home regimen - Hyperlipidemia - Hypertension - Hypothyroidism - Charcot heart tooth syndrome -Leukocytosis: Will obtain urinalysis to rule out any UTI - History of congestive heart failure may be diastolic function patient had normal ejection fraction from the echocardiogram that was done in 2020 there is no comment on diastolic function at the time patient did have dilated right ventricle. 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 Date of last positivie culture/infection: 2002 MDRO Source:: LEFT FOOT,LEFT SHOULDER, RIGHT HIP Past Surgical History: Appendectomy, Cholecystectomy, Hysterectomy, Joint Replacement, Orthopedic Surgery, Tonsillectomy Additional Past Surgical History / Comment(s): right hip replacement, hysterectomy, cholecystectomy, appendectomy Past Anesthesia/Blood Transfusion Reactions: No Reported Reaction Past Psychological History: No Psychological Hx Reported Smoking Status: Never smoker Past Alcohol Use History: None Reported Past Drug Use History: None Reported - Past Family History Daughter(s) History Unknown: Yes Father Family Medical History: Congestive Heart Failure (CHF), Diabetes Mellitus Additional Family Medical History / Comment(s): obesity Medications and Allergies Home Medications Medication Instructions Recorded Confirmed Type Metoprolol Succinate [Toprol XL] 25 mg PO DAILY 01/21/16 11/19/24 History Ketoconazole 2% Cream [Nizoral 2%] 1 applic TOPICAL BID PRN 09/15/20 11/19/24 History Losartan [Cozaar] 25 mg PO DAILY #30 tab 09/24/20 11/19/24 Rx Diclofenac Sodium Gel [Voltaren 2 gm TOPICAL QID PRN 08/01/21 11/19/24 History Gel] traMADol HCL [Ultram] 50 mg PO QID PRN 08/01/21 11/19/24 History ALPRAZolam [Xanax] 0.25 mg PO DAILY PRN 11/19/24 11/19/24 History Albuterol Nebulized [Ventolin 2.5 mg INHALATION RT-QID PRN 11/19/24 11/19/24 History Nebulized] Ergocalciferol (Vitamin D2) 1,250 mcg PO HERNANDEZ 11/19/24 11/19/24 History [Drisdol (GEQ) 1,250 MCG (50,000 IU)] Ezetimibe [Zetia] 10 mg PO DAILY 11/19/24 11/19/24 History Furosemide [Lasix] 40 mg PO DAILY PRN 11/19/24 11/19/24 History Levothyroxine Sodium [Synthroid] 150 mcg PO DAILY 11/19/24 11/19/24 History Allergies Allergy/AdvReac Type Severity Reaction Status Date / Time aspirin Allergy Unknown Verified 11/19/24 09:25 latex Allergy Unknown Verified 11/19/24 09:25 meperidine HCl [From Demerol] Allergy Rash/Hives Verified 11/19/24 09:25 morphine Allergy Unknown Verified 11/19/24 09:25 Nitrate Analogues Allergy Rash/Hives Verified 11/19/24 09:25 Sulfa (Sulfonamide Allergy Rash/Hives Verified 11/19/24 09:25 Antibiotics) tomato Allergy Rash/Hives Verified 11/19/24 09:25 codeine AdvReac Nausea Verified 11/19/24 09:25 [id number] Reductase AdvReac Nausea & Verified 11/19/24 09:25 Inhibitor Vomiting Physical Exam Vitals: Vital Signs Temp Pulse Pulse Resp BP Pulse Ox 11/19/24 10:00 73 17 146/110 95 11/19/24 06:00 77 22 120/83 93 L 11/19/24 05:00 72 22 107/69 93 L 11/19/24 04:00 79 25 H 109/72 92 L 11/19/24 03:08 78 25 H 106/65 92 L 11/19/24 02:08 81 24 109/70 92 L 11/19/24 01:08 80 27 H 99/67 93 L 11/19/24 00:08 91 28 H 122/73 91 L 11/18/24 23:00 97 25 H 111/69 92 L 11/18/24 21:00 91 11/18/24 20:58 99.0 F 75 24 140/92 92 L Intake and Output 11/18/24 11/19/24 11/19/24 22:59 06:59 14:59 Other: Weight 90.718 kg Results CBC & Chem 7: 11/18/24 21:05 11/18/24 21:05 Labs: Abnormal Lab Results - Last 24 Hours (Table) 11/18/24 11/18/24 Range/Units 21:05 21:05 WBC 12.62 H (4.50-10.00) 10*3/uL Hgb 15.4 H (12.0-15.0) g/dL Neutrophils # 10.78 H (1.80-7.70) 10*3/uL Lymphocytes # 0.89 L (0.90-5.00) 10*3/uL Sodium 136 L (137-145) mmol/L Carbon Dioxide 20 L (22-30) mmol/L Glucose 157 H (74-99) mg/dL Magnesium 1.5 L (1.6-2.3) mg/dL Total Bilirubin 1.4 H (0.2-1.3) mg/dL
[2024-11-19] MEDS: LEVOTHYROXINE 75 MCG TAB PO SCH (11:10)
--- NOTE | 2024-11-19 11:37 | P.CRDCN ---
History of Present Illness Consult date: 11/19/24 Consult reason: chest pain History of present illness: This is an 89-year-old female does not follow with a legal billing coordinator and denies previous cardiac history. She does have past medical history of hypertension, dyslipidemia, hypothyroidism. We have been asked to evaluate the patient for chest pain. Patient gives history that she has had chest pain on and off on the left lower rib side for several months and is worse with exhalation. She states that yesterday she developed chills and shakes that lasted for about an hour to the point that she could not get them to stop and she was under blankets but her face felt hot. She thought maybe she was having seizures but she was awake throughout the episode. She states her legs were extremely weak all afternoon and after this episode was extremely weak. She states it was very hard for her to get off the toilet even after the shaking stopped. By the time EMS arrived the shaking had resolved. She does give history of having a cardiac catheterization in 1989 that showed no obstructive disease but small caliber arteries. She states the chest pain is also in the lower back area as well. Blood pressure 146/110, heart rate 73, pulse ox 95% on 2 L nasal cannula. Patient is seen today in the emergency center waiting for a bed on the observation unit. -EKG: Sinus rhythm with PVCs. -Chest x-ray: Cardiomegaly with mild pulmonary vascular congestion. -Laboratory studies: WBC 12.6, hemoglobin 15.4. Troponin negative x 4 draws. Sodium 136, potassium 3.9, creatinine 0.54. Magnesium 1.5. -Home cardiac medications: Zetia 10 mg daily, Lasix 40 mg daily as needed, losartan 25 mg daily, metoprolol succinate 25 mg daily, also on levothyroxine. -Echocardiogram performed in 2020 revealed EF 50 to 55%, mild concentric LVH. Right ventricle is severely enlarged. Mild aortic sclerosis. No mitral regurgitation. Unable to estimate RVSP. -Donya scan stress test performed in 2020 revealed large area of fixed perfusion defect along the lateral wall could represent area of old infarct. No discrete reversibility seen. Review Of Systems: At the time of my exam: CONSTITUTIONAL: Denies fever or chills. HEENT: Denies blurred vision, vision changes, or eye pain. Denies hemoptysis CARDIOVASCULAR: Denies chest pain. Denies orthopnea. Denies PND. Denies palpitations RESPIRATORY: Denies shortness of breath. GASTROINTESTINAL: Denies abdominal pain. Denies nausea or vomiting. HEMATOLOGIC: Denies bleeding disorders. GENITOURINARY: Denies any blood in urine. SKIN: Denies puritis. Denies rash. Physical examination: Gen: This is an 89-year-old female in no acute distress. VS: reviewed HEENT: Head is atraumatic, normocephalic. Pupils equal, round. Sclerae is anicteric. NECK: Supple. No JVD. LUNGS: Clear to auscultation. No wheezes or rhonchi. No intercostal retractions. HEART: Regular rate and rhythm. No murmur. ABDOMEN: Soft No tenderness. EXTREMITIES: No pedal edema. No calf tenderness. NEUROLOGICAL: Patient is awake, alert and oriented x3. Assessment: Febrile illness of unclear etiology Noncardiac chest pain, muscular skeletal in nature Acute coronary syndrome has been ruled out Hypertension Dyslipidemia Hypothyroidism Plan: Resume patient's home cardiac medications Obtain 2-D echocardiogram and Doppler study to assess cardiac structure and function If echocardiogram is unremarkable, patient may follow-up in the office for outpatient stress testing with Dr. Augie Khan in 2 weeks. Further recommendations to follow based upon clinical course Thank you kindly for this consultation. Nurse practitioner note has been reviewed, I agree with documented findings and plan of care. Patient was seen and examined. 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 Date of last positivie culture/infection: 2002 MDRO Source:: LEFT FOOT,LEFT SHOULDER, RIGHT HIP Past Surgical History: Appendectomy, Cholecystectomy, Hysterectomy, Joint Replacement, Orthopedic Surgery, Tonsillectomy Additional Past Surgical History / Comment(s): right hip replacement, h ysterectomy, cholecystectomy, appendectomy Past Anesthesia/Blood Transfusion Reactions: No Reported Reaction Past Psychological History: No Psychological Hx Reported Smoking Status: Never smoker Past Alcohol Use History: None Reported Past Drug Use History: None Reported - Past Family History Daughter(s) History Unknown: Yes Father Family Medical History: Congestive Heart Failure (CHF), Diabetes Mellitus Additional Family Medical History / Comment(s): obesity Medications and Allergies Home Medications Medication Instructions Recorded Confirmed Type Metoprolol Succinate [Toprol XL] 25 mg PO DAILY 01/21/16 11/19/24 History Ketoconazole 2% Cream [Nizoral 2%] 1 applic TOPICAL BID PRN 09/15/20 11/19/24 History Losartan [Cozaar] 25 mg PO DAILY #30 tab 09/24/20 11/19/24 Rx Diclofenac Sodium Gel [Voltaren 2 gm TOPICAL QID PRN 08/01/21 11/19/24 History Gel] traMADol HCL [Ultram] 50 mg PO QID PRN 08/01/21 11/19/24 History ALPRAZolam [Xanax] 0.25 mg PO DAILY PRN 11/19/24 11/19/24 History Albuterol Nebulized [Ventolin 2.5 mg INHALATION RT-QID PRN 11/19/24 11/19/24 History Nebulized] Ergocalciferol (Vitamin D2) 1,250 mcg PO HERNANDEZ 11/19/24 11/19/24 History [Drisdol (GEQ) 1,250 MCG (50,000 IU)] Ezetimibe [Zetia] 10 mg PO DAILY 11/19/24 11/19/24 History Furosemide [Lasix] 40 mg PO DAILY PRN 11/19/24 11/19/24 History Levothyroxine Sodium [Synthroid] 150 mcg PO DAILY 11/19/24 11/19/24 History Allergies Allergy/AdvReac Type Severity Reaction Status Date / Time aspirin Allergy Unknown Verified 11/19/24 09:25 latex Allergy Unknown Verified 11/19/24 09:25 meperidine HCl [From Demerol] Allergy Rash/Hives Verified 11/19/24 09:25 morphine Allergy Unknown Verified 11/19/24 09:25 Nitrate Analogues Allergy Rash/Hives Verified 11/19/24 09:25 Sulfa (Sulfonamide Allergy Rash/Hives Verified 11/19/24 09:25 Antibiotics) tomato Allergy Rash/Hives Verified 11/19/24 09:25 codeine AdvReac Nausea Verified 11/19/24 09:25 [id number] Reductase AdvReac Nausea & Verified 11/19/24 09:25 Inhibitor Vomiting Physical Exam Vitals: Vital Signs Temp Pulse Pulse Resp BP Pulse Ox 11/19/24 06:00 77 22 120/83 93 L 11/19/24 05:00 72 22 107/69 93 L 11/19/24 04:00 79 25 H 109/72 92 L 11/19/24 03:08 78 25 H 106/65 92 L 11/19/24 02:08 81 24 109/70 92 L 11/19/24 01:08 80 27 H 99/67 93 L 11/19/24 00:08 91 28 H 122/73 91 L 11/18/24 23:00 97 25 H 111/69 92 L 11/18/24 21:00 91 11/18/24 20:58 99.0 F 75 24 140/92 92 L Intake and Output 11/18/24 11/19/24 11/19/24 22:59 06:59 14:59 Other: Weight 90.718 kg Results 11/18/24 21:05 11/18/24 21:05 Cardiac Enzymes 11/18/24 11/18/24 11/19/24 Range/Units 21:05 21:05 03:44 AST 30 (14-36) U/L Troponin I <0.012 0.013 (0.000-0.034) ng/mL 11/19/24 Range/Units 06:12 AST (14-36) U/L Troponin I <0.012 (0.000-0.034) ng/mL Coagulation 11/18/24 Range/Units 21:05 PT 12.0 (10.0-12.5) sec APTT 24.3 (22.0-30.0) sec CBC 11/18/24 Range/Units 21:05 WBC 12.62 H (4.50-10.00) 10*3/uL RBC 4.85 (4.10-5.20) 10*6/uL Hgb 15.4 H (12.0-15.0) g/dL Hct 44.8 (37.2-46.3) % Plt Count 260 (140-440) 10*3/uL Comprehensive Metabolic Panel 11/18/24 Range/Units 21:05 Sodium 136 L (137-145) mmol/L Potassium 3.9 (3.5-5.1) mmol/L Chloride 103 (98-107) mmol/L Carbon Dioxide 20 L (22-30) mmol/L BUN 10 (7-17) mg/dL Creatinine 0.54 (0.52-1.04) mg/dL Glucose 157 H (74-99) mg/dL Calcium 9.6 (8.4-10.2) mg/dL AST 30 (14-36) U/L ALT 14 (4-34) U/L Alkaline Phosphatase 114 (38-126) U/L Total Protein 6.5 (6.3-8.2) g/dL Albumin 4.2 (3.5-5.0) g/dL Current Medications Generic Name Dose Route Start Last Admin Trade Name Freq PRN Reason Stop Dose Admin Acetaminophen 650 mg 11/18/24 21:38 11/19/24 06:57 Acetaminophen Tab 325 Mg Tab PO 650 mg Q6HR PRN Administration Fever and/ or Pain Levothyroxine Sodium 125 mcg 11/19/24 06:00 11/19/24 06:56 Levothyroxine 125 Mcg Tab PO 125 mcg DAILY@0600 DANO Administration Losartan Potassium 25 mg 11/19/24 09:00 Losartan 25 Mg Tab PO DAILY DANO Metoprolol Succinate 25 mg 11/19/24 09:00 Metoprolol Succinate (Er) 25 Mg Tab.Er.24h PO DAILY DANO Naloxone HCl 0.2 mg 11/18/24 22:33 Naloxone 0.4 Mg/Ml 1 Ml Vial IV Q2M PRN Opioid Reversal Tramadol HCl 50 mg 11/19/24 09:00 Tramadol 50 Mg Tab PO QID DANO Intake and Output 11/18/24 11/19/24 11/19/24 22:59 06:59 14:59 Other: Weight 90.718 kg 11/18/24 21:05 11/18/24 21:05
[2024-11-19] MEDS: MAGNESIUM SULFATE-D5W PMX 1 GM in DEXTROSE/WATER 1 100ML.BAG IVPB SCH (12:20)
[2024-11-19] MEDS: EZETIMIBE 10 MG TAB PO SCH (12:21)
[2024-11-19 13:13] LABS: Appearance,Urine Cloudy (Clear); Bilirubin,Urine Negative (Negative); Blood,Urine Small (Negative); Color,Urine Yellow; Glucose,Urine (UA) Negative (Negative); Ketones,Urine Negative (Negative); Leukocyte Esterase,Urine Large (Negative); Nitrite,Urine Positive (Negative); Protein,Urine 1+ (Negative); RBC,Urine 5 /hpf (0-5); Specific Gravity,Urine 1.016 (1.001-1.035); Squamous Epithelial Cell,Urine <1 /hpf (0-4); Urobilinogen,Urine <2.0 mg/dL (<2.0); WBC,Urine >182 /hpf (0-5)
[2024-11-19 17:28] LABS: Glucose,Whole Blood 135 mg/dL (70-110)
[2024-11-20] MEDS: ALPRAZolam 0.25 MG TAB PO PRN (03:04)
[2024-11-20 08:15] LABS: HCT 43.7 % (37.2-46.3); HGB 14.5 g/dL (12.0-15.0); MCH 30.9 pg (27.0-32.0); MCHC 33.2 g/dL (32.0-37.0); Mean Platelet Volume 10.8 FL (9.5-12.2); NRBC Per 100 WBC 0 X 10*3/uL (0.00-0.01); Platelet Count 238 X 10*3/uL (140-440); RDW 13.5 % (11.5-14.5)
[2024-11-20 08:24] LABS: BUN/Creat Ratio 16.86 Ratio (12.00-20.00); Blood Urea Nitrogen 11.8 mg/dL (9.0-27.0); Calcium 8.7 mg/dL (8.7-10.3); Carbon Dioxide 22.9 mmol/L (21.6-31.8); Chloride 98 mmol/L (96-109); Glucose 121 mg/dL (70-110); Sodium 134 mmol/L (135-145)
[2024-11-20] MEDS: ENOXAPARIN 40 MG/0.4 ML SYRINGE SQ SCH (08:42)
--- NOTE | 2024-11-20 08:48 | P.PN ---
Subjective This is an 89-year-old female does not follow with a avionics test technician and denies previous cardiac history. She does have past medical history of hypertension, dyslipidemia, hypothyroidism. We have been asked to evaluate the patient for chest pain. Patient gives history that she has had chest pain on and off on the left lower rib side for several months and is worse with exhalation. She states that yesterday she developed chills and shakes that lasted for about an hour to the point that she could not get them to stop and she was under blankets but her face felt hot. She thought maybe she was having seizures but she was awake throughout the episode. She states her legs were extremely weak all afternoon and after this episode was extremely weak. She states it was very hard for her to get off the toilet even after the shaking stopped. By the time EMS arrived the shaking had resolved. She does give history of having a cardiac catheter ization in 1989 that showed no obstructive disease but small caliber arteries. She states the chest pain is also in the lower back area as well. Blood pressure 146/110, heart rate 73, pulse ox 95% on 2 L nasal cannula. Patient is seen today in the emergency center waiting for a bed on the observation unit. -EKG: Sinus rhythm with PVCs. -Chest x-ray: Cardiomegaly with mild pulmonary vascular congestion. -Laboratory studies: WBC 12.6, hemoglobin 15.4. Troponin negative x 4 draws. Sodium 136, potassium 3.9, creatinine 0.54. Magnesium 1.5. -Home cardiac medications: Zetia 10 mg daily, Lasix 40 mg daily as needed, losartan 25 mg daily, metoprolol succinate 25 mg daily, also on levothyroxine. -Echocardiogram performed in 2020 revealed EF 50 to 55%, mild concentric LVH. Right ventricle is severely enlarged. Mild aortic sclerosis. No mitral regurgitation. Unable to estimate RVSP. -Donya scan stress test performed in 2020 revealed large area of fixed perfusion defect along the lateral wall could represent area of old infarct. No discrete reversibility seen. 11/20 Patient seen and examined. Patient denies any chest pain or pressure consistently however had a repeat episode of shaking consistent with rigors and fever as well. Echocardiogram pending. No significant shortness of breath. Physical examination: Gen: This is an 89-year-old female in no acute distress. VS: reviewed HEENT: Head is atraumatic, normocephalic. Pupils equal, round. Sclerae is anicteric. NECK: Supple. No JVD. LUNGS: Clear to auscultation. No wheezes or rhonchi. No intercostal retractions. HEART: Regular rate and rhythm. No murmur. ABDOMEN: Soft No tenderness. EXTREMITIES: No pedal edema. No calf tenderness. NEUROLOGICAL: Patient is awake, alert and oriented x3. Assessment: Febrile illness of unclear etiology Noncardiac chest pain, muscular skeletal in nature Acute coronary syndrome has been ruled out Hypertension Dyslipidemia Hypothyroidism Plan: Resume patient's home cardiac medications Await 2D echo If echocardiogram is unremarkable, patient may follow-up in the office for outpa tient stress testing with Dr. Augie Khan in 2 weeks. Main presentation appears related to sepsis with significant fevers and rigors. If echo unrevealing no further workup from cardiac standpoint. Consider outpatient stress testing if continues to have chest pain episodes. Objective - Vital Signs Vital signs: Vital Signs Temp 98.3 F 11/20/24 07:55 Pulse 91 11/20/24 07:55 Resp 16 11/20/24 07:55 BP 108/66 11/20/24 07:55 Pulse Ox 97 11/20/24 07:55 FiO2 Intake & Output 11/19/24 11/20/24 11/20/24 18:59 06:59 18:59 Weight 90.718 kg Other: Voiding Method Bedside Commode # Voids 2 # Bowel Movements 1 - Labs CBC & Chem 7: 11/20/24 05:28 11/20/24 05:28 Labs: Abnormal Lab Results - Last 24 Hours (Table) 11/19/24 11/19/24 11/20/24 Range/Units 12:03 17:26 05:28 WBC 15.40 H (4.50-10.00) X 10*3/uL Sodium (135-145) mmol/L Anion Gap (4.00-12.00) mmol/L Glucose (70-110) mg/dL POC Glucose (mg/dL) 135 H (70-110) mg/dL Urine Appearance Cloudy H (Clear) Urine Protein 1+ H (Negative) Urine Blood Small H (Negative) Urine Nitrite Positive H (Negative) Ur Leukocyte Esterase Large H (Negative) Urine WBC >182 H (0-5) /hpf 11/20/24 Range/Units 05:28 WBC (4.50-10.00) X 10*3/uL Sodium 134 L (135-145) mmol/L Anion Gap 13.10 H (4.00-12.00) mmol/L Glucose 121 H (70-110) mg/dL POC Glucose (mg/dL) (70-110) mg/dL Urine Appearance (Clear) Urine Protein (Negative) Urine Blood (Negative) Urine Nitrite (Negative) Ur Leukocyte Esterase (Negative) Urine WBC (0-5) /hpf
[2024-11-20 12:59] LABS: Influenza A Not Detected (Not Detectd); Influenza B Not Detected (Not Detectd); RSV Not Detected (Not Detectd)
--- NOTE | 2024-11-20 13:17 | CA ---
Transthoracic Echo Report Name: Nany Luo Age: 89 Gender: F : 1935 Exam Date: 11/20/2024 10:17 Exam Location: [place] Echo Ht (in): 53 Wt (lb): 200 Ordering Physician: Ileana Abreu Attending/Referring Phys: [id number], Brady Spool Salvager Aydee Orozco RDCS Procedure CPT: Indications: LVF, chest pain Cardiac Hx: Technical Quality: Poor Contrast 1: Total Dose (mL): Contrast 2: Total Dose (mL): MEASUREMENTS (Male / Female) Normal Values 2D ECHO LV Diastolic Diameter PLAX 3.3 cm 4.2 - 5.9 / 3.9 - 5.3 cm LV Systolic Diameter PLAX 2.3 cm IVS Diastolic Thickness 1.3 cm 0.6 - 1.0 / 0.6 - 0.9 cm LVPW Diastolic Thickness 1.3 cm 0.6 - 1.0 / 0.6 - 0.9 cm LV Relative Wall Thickness 0.8 RV Internal Dim ED PLAX 1.5 cm LVOT Diameter 1.9 cm LA Systolic Diameter LX 4.3 cm 3.0 - 4.0 / 2.7 - 3.8 cm LV Diastolic Volume MOD BP 35.5 cm??? 67 - 155 / 56 - 104 cm??? LV Systolic Volume MOD BP 15.6 cm??? - 58 / 19 - 49 cm??? LV Ejection Fraction MOD BP 56.1 % >= 55 % LV Cardiac Index MOD BP 738.7 cm???/min???m??? LV Diastolic Volume MOD 4C 27.8 cm??? LV Systolic Volume MOD 4C 15.5 cm??? LV Ejection Fraction MOD 4C 44.0 % LV Cardiac Index MOD 4C 453.3 cm???/min???m??? LV Diastolic Length 4C 5.9 cm LV Systolic Length 4C 5.4 cm LV Diastolic Volume MOD 2C 41.0 cm??? LV Systolic Volume MOD 2C 15.5 cm??? LV Ejection Fraction MOD 2C 62.2 % LV Cardiac Index MOD 2C 948.0 cm???/min???m??? LV Diastolic Length 2C 6.7 cm LV Systolic Length 2C 5.3 cm LA Volume 106.8 cm??? 18 - 58 / 22 - 52 cm??? LA Volume Index 55.8 cm???/m??? 16 - 28 cm???/m??? M-MODE Aortic Root Diameter MM 3.0 cm LA Systolic Diameter MM 4.8 cm LA Ao Ratio MM 1.6 AV Cusp Separation MM 1.3 cm DOPPLER AV Peak Velocity 204.8 cm/s AV Peak Gradient 16.8 mmHg AV Mean Velocity 152.7 cm/s AV Mean Gradient 10.3 mmHg AV Velocity Time Integral 40.9 cm AI Peak Velocity 256.9 cm/s AI Peak Gradient 26.4 mmHg AI Pressure Half Time 689.4 ms LVOT Peak Velocity 94.6 cm/s LVOT Peak Gradient 3.6 mmHg LVOT Velocity Time Integral 22.7 cm LVOT Stroke Volume 65.7 cm??? LVOT Stroke Volume Index 38.5 ml/m??? LVOT Cardiac Index 2438.2 cm???/min???m??? AV Area Cont Eq vti 1.6 cm??? AV Area Cont Eq pk 1.3 cm??? MV Peak Velocity 106.6 cm/s MV Peak Gradient 4.5 mmHg MV Mean Velocity 66.1 cm/s MV Mean Gradient 2.0 mmHg MV Velocity Time Integral 36.2 cm MV Area PHT 2.7 cm??? Mitral E Point Velocity 72.8 cm/s Mitral A Point Velocity 99.5 cm/s Mitral E to A Ratio 0.7 MV Deceleration Time 281.9 ms TR Peak Velocity 262.4 cm/s TR Peak Gradient 27.5 mmHg Right Ventricular Systolic Press 37.1 mmHg FINDINGS Left Ventricle Left ventricular ejection fraction is estimated at 55-60%. Mildly increased septal wall thickness. Moderately increased posterior wall thickness. Normal left ventricular systolic function with no obvious regional wall motion abnormalities. Left ventricular cavity size normal. Right Ventricle Mild right ventricular dilatation. Mild pulmonary hypertension. Right Atrium Mild right atrial dilatation. Left Atrium Mildly increased left atrial diameter. Mitral Valve Mitral valve thickened. Mitral annular calcification. Mild mitral regurgitation. No mitral stenosis. Aortic Valve Aortic valve not well visualized. Mild aortic stenosis with a peak gradient of 17mmHg and a mean gradient of 10 mmHg. Mild aortic regurgitation. Tricuspid Valve Structurally normal tricuspid valve. [id number] tricuspid regurgitation. No tricuspid stenosis. Pulmonic Valve Structurally normal pulmonic valve. Trace pulmonic regurgitation. No pulmonic stenosis. Pericardium Minimal pericardial effusion (normal variant). No pleural effusion. Aorta Normal size aortic root and proximal ascending aorta. CONCLUSIONS Left ventricular ejection fraction 55 to 60% Mildly increased left ventricular wall thickness RVSP 37 Mild mitral regurgitation Mild aortic stenosis Mild to moderate tricuspid regurgitation Previewed by: Dr. Suraj Thomas DO (Electronically Signed) Final Date: 20 November 2024 13:16
--- NOTE | 2024-11-20 21:27 | P.PN ---
Subjective Progress Note Date: 11/20/24 [id number] pleasant female came in complaints of left-sided chest pain pressure-like sensation 4/10 in severity dull in nature nonradiating. Patient was also complaining of shaking appears to be secondary to increased air conditioning. Patient also complaining of bruise discoloration of the hands and feet at the same time. Does not appear to be related to her chest pain. Patient has chest x-ray which was read as pulmonary congestion although because of the patient's body habitus I cannot really interpret that x-ray. Will obtain a proBNP patient denied any fever chills nausea vomiting. Patient has some questionable dysuria at the end of urinary stream will obtain a urinalysis and urine cultures patient was having cough but chest x-ray is not consistent with pneumonia. 11/20/2024 Patient is evaluated today in follow up on the medical floor. Reporting cough with sputum and usually does not wear oxygen at home. Currently requiring 3L of oxygen via nasal cannula however, could be titrated down as saturations are 96%. Patient continues to report dysuria and burning with urination. Urine culture pending and has been started on IV ceftriaxone. White blood cell count 15.40 and procalcitonin level 1.87. Echocardiogram reveals EF55-60% with mild aortic stenosis, mild to moderate TR, mild MR, mildly increased left ventricular wall thickness, RVSP 37. Review of Systems Constitutional: Denied any fatigue denied any fever. Cardio vascular: denied any chest pain, palpitations Gastrointestinal: denied any nausea, vomiting, diarrhea Pulmonary: Denied any shortness of breath cough Neurologic denied any new focal deficits All inpatient medications were reviewed and appropriate changes in these medications as dictated in the interval history and assessment and plan. PHYSICAL EXAMINATION: GENERAL: The patient is alert and oriented x3, not in any acute distress. Well developed, well nourished. HEENT: Pupils are round and equally reacting to light. EOMI. No scleral icterus. No conjunctival pallor. Normocephalic, atraumatic. No pharyngeal erythema. No thyromegaly. CARDIOVASCULAR: S1 and S2 present. No murmurs, rubs, or gallops. PULMONARY: Chest is clear to auscultation, no wheezing or crackles. ABDOMEN: Soft, nontender, nondistended, normoactive bowel sounds. No palpable organomegaly. MUSCULOSKELETAL: No joint swelling or deformity. EXTREMITIES: No cyanosis, clubbing, or pedal edema. NEUROLOGICAL: Gross neurological examination did not reveal any focal deficits. SKIN: No rashes. Assessment and plan - Acute UTI, POA - Chest pain ruled out acute coronary syndromes - Type 2 diabetes mellitus patient was resumed on home regimen - Hyperlipidemia - Hypertension - Hypothyroidism - Charcot tooth syndrome - Leukocytosis because of the UTI with elevated procalcitonin level. - History of congestive heart failure diastolic dysfunction DVT prophylaxis: Lovenox Continue IV ceftriaxone pending final urine culture. Titrate oxygen. PT/OT consultation recommending home with home care. Social work on for discharge planning. The impression and plan of care has been dictated by Niru Franks Nurse Practitioner as directed. Dr. Fidel MD I have performed a history and physical examination and medical decision making of this patient, discussed the same with the dictator, and agree with the dictators assessment and plan as written, documented as a scribe. Based on total visit time, I have performed more than 50% of this visit. Objective - Vital Signs Vital signs: Vital Signs Temp 98.7 F 11/20/24 19:42 Pulse 89 11/20/24 19:42 Resp 17 11/20/24 19:42 BP 115/75 11/20/24 19:42 Pulse Ox 96 11/20/24 19:42 FiO2 Intake & Output 11/20/24 11/20/24 11/21/24 06:59 18:59 06:59 Intake Total 240 Balance 240 Intake: Oral 240 Other: Voiding Method Bedside Commode External Catheter # Voids 2 3 # Bowel Movements 1 - Labs CBC & Chem 7: 11/20/24 05:28 11/20/24 05:28 Labs: Abnormal Lab Results - Last 24 Hours (Table) 11/20/24 11/20/24 11/20/24 Range/Units 05:28 05:28 05:28 WBC 15.40 H (4.50-10.00) X 10*3/uL Sodium 134 L (135-145) mmol/L Anion Gap 13.10 H (4.00-12.00) mmol/L Glucose 121 H (70-110) mg/dL Procalcitonin 1.87 H (0.02-0.50) ng/mL Assessment and Plan Time with Patient: Less than 30
[2024-11-21 08:03] LABS: HGB 13.6 g/dL (12.0-15.0); MCH 30.4 pg (27.0-32.0); MCHC 31.6 g/dL (32.0-37.0); Mean Platelet Volume 10.8 FL (9.5-12.2); NRBC Per 100 WBC 0 X 10*3/uL (0.00-0.01); Platelet Count 195 X 10*3/uL (140-440); RBC 4.48 X 10*6/uL (4.10-5.20); RDW 13.7 % (11.5-14.5)
[2024-11-21 08:26] LABS: BUN/Creat Ratio 16.44 Ratio (12.00-20.00); Blood Urea Nitrogen 14.8 mg/dL (9.0-27.0); Calcium 8.9 mg/dL (8.7-10.3); Chloride 100 mmol/L (96-109); Glucose 110 mg/dL (70-110); Potassium 3.9 mmol/L (3.5-5.5); Sodium 134 mmol/L (135-145)
[2024-11-21 08:44] LABS: Basophils # (A) 0.08 X 10*3/uL (0.00-0.10); Basophils % (A) 0.6 %; Eosinophils # (A) 0.05 X 10*3/uL (0.04-0.35); Eosinophils % (A) 0.4 %; Lymphocytes # (A) 1.22 X 10*3/uL (0.90-5.00); Lymphocytes % (A) 9.2 %; Monocytes # (A) 1.66 X 10*3/uL (0.20-1.00); Monocytes % (A) 12.6 %; Neutrophils # (A) 10.12 X 10*3/uL (1.80-7.70); Neutrophils % (A) 76.7 %
--- NOTE | 2024-11-21 10:55 | P.PN ---
Subjective Progress Note Date: 11/21/24 Rtkp-frfj-mrp pleasant female came in complaints of left-sided chest pain pressure-like sensation 4/10 in severity dull in nature nonradiating. Patient was also complaining of shaking appears to be secondary to increased air conditioning. Patient also complaining of bruise discoloration of the hands and feet at the same time. Does not appear to be related to her chest pain. Patient has chest x-ray which was read as pulmonary congestion although because of the patient's body habitus I cannot really interpret that x-ray. Will obtain a proBNP patient denied any fever chills nausea vomiting. Patient has some questionable dysuria at the end of urinary stream will obtain a urinalysis and urine cultures patient was having cough but chest x-ray is not consistent with pneumonia. 11/20/2024 Patient is evaluated today in follow up on the medical floor. Reporting cough with sputum and usually does not wear oxygen at home. Currently requiring 3L of oxygen via nasal cannula however, could be titrated down as saturations are 96%. Patient continues to report dysuria and burning with urination. Urine culture pending and has been started on IV ceftriaxone. White blood cell count 15.40 and procalcitonin level 1.87. Echocardiogram reveals EF55-60% with mild aortic stenosis, mild to moderate TR, mild MR, mildly increased left ventricular wall thickness, RVSP 37. 11/21/2024 Patient belting follow-up with medical floor. She is reporting improvement in her shortness of breath currently saturating 97% to liters of oxygen via nasal cannula and can likely discontinue the oxygen. Her urine culture showing gram- negative bacilli and she continues on IV ceftriaxone pending final cultures. White blood cell count is improved and down to 13.20 today. Patient has been evaluated physical therapy and recommending home with home care. Review of Systems Constitutional: Denied any fatigue denied any fever. Cardio vascular: denied any chest pain, palpitations Gastrointestinal: denied any nausea, vomiting, diarrhea Pulmonary: Denied any shortness of breath cough Neurologic denied any new focal deficits All inpatient medications were reviewed and appropriate changes in these medications as dictated in the interval history and assessment and plan. PHYSICAL EXAMINATION: GENERAL: The patient is alert and oriented x3, not in any acute distress. Well developed, well nourished. HEENT: Pupils are round and equally reacting to light. EOMI. No scleral icterus. No conjunctival pallor. Normocephalic, atraumatic. No pharyngeal erythema. No thyromegaly. CARDIOVASCULAR: S1 and S2 present. No murmurs, rubs, or gallops. PULMONARY: Chest is clear to auscultation, no wheezing or crackles. ABDOMEN: Soft, nontender, nondistended, normoactive bowel sounds. No palpable organomegaly. MUSCULOSKELETAL: No joint swelling or deformity. EXTREMITIES: No cyanosis, clubbing, or pedal edema. NEUROLOGICAL: Gross neurological examination did not reveal any focal deficits. SKIN: No rashes. Assessment and plan - Acute UTI, POA - Chest pain ruled out acute coronary syndromes - Type 2 diabetes mellitus patient was resumed on home regimen - Hyperlipidemia - Hypertension - Hypothyroidism - Charcot tooth syndrome - Leukocytosis because of the UTI with elevated procalcitonin level. - History of congestive heart failure diastolic dysfunction DVT prophylaxis: Lovenox Continue IV ceftriaxone pending final urine culture. Titrate oxygen. PT/OT consultation recommending home with home care. Social work on for discharge planning. The impression and plan of care has been dictated by Niru Franks, Nurse Practitioner as directed. Dr. Fidel MD I have performed a history and physical examination and medical decision making of this patient, discussed the same with the dictator, and agree with the dictators assessment and plan as written, documented as a scribe. Based on total visit time, I have performed more than 50% of this visit. Objective - Vital Signs Vital signs: Vital Signs Temp 98.1 F 11/21/24 07:00 Pulse 81 11/21/24 07:00 Resp 16 11/21/24 07:00 BP 115/68 11/21/24 07:00 Pulse Ox 97 11/21/24 08:32 FiO2 Intake & Output 11/20/24 11/21/24 11/21/24 18:59 06:59 18:59 Intake Total 240 118 Output Total 300 Balance 240 -300 118 Intake: Oral 240 118 Output: Urine 300 Other: Voiding Method External Catheter Bedside Commode Bedside Commode External Catheter External Catheter # Voids 3 # Bowel Movements 1 - Labs CBC & Chem 7: 11/21/24 05:03 11/21/24 05:03 Labs: Abnormal Lab Results - Last 24 Hours (Table) 11/20/24 11/21/24 11/21/24 Range/Units 05:28 05:03 05:03 WBC 13.20 H (4.50-10.00) X 10*3/uL MCHC 31.6 L (32.0-37.0) g/dL Immature Gran # 0.07 H (0.00-0.04) X 10*3/uL Neutrophils # 10.12 H (1.80-7.70) X 10*3/uL Monocytes # 1.66 H (0.20-1.00) X 10*3/uL Sodium 134 L (135-145) mmol/L Procalcitonin 1.87 H (0.02-0.50) ng/mL Microbiology - Last 24 Hours (Table) 11/20/24 14:51 Gram Stain - Preliminary Sputum 11/19/24 12:03 Urine Culture - Preliminary Urine,Voided Gram Neg Bacilli Assessment and Plan Time with Patient: Less than 30
--- NOTE | 2024-11-21 13:38 | FL ---
EXAMINATION TYPE: FL barium swallow w video DATE OF EXAM: 11/21/2024 CLINICAL HISTORY: 89-year-old female rule out oropharyngeal Dysphagia. Patient with a coughing fluid fluid. History of [id number] disease. TECHNIQUE: Deglutition study is performed utilizing thin liquid barium, barium thick pudding, and ba rium coated cracker. Total fluoroscopy time: 2 minutes 7 seconds. Total dose area product (DAP) 100 mGycm2. COMPARISON: None. FINDINGS: The oral and pharyngeal phases show satisfactory initiation and propagation with all modali ties tested. The patient is edentulous but otherwise, normal mastication is seen with solid modalitie s tested. There is no evidence of penetration or aspiration with any modality tested. No significan t pharyngeal residue was appreciated. There is mild to moderate hypertrophy of the cricopharyngeus no jayde. IMPRESSION: 1. Mild to moderate muscle hypertrophy/spasm. 2. Otherwise, normal dynamic swallow study. Please refer to speech therapist notes for further details if necessary. [facility], , 11/21/2024 1:36 PM
--- NOTE | 2024-11-21 14:02 | P.PN ---
Subjective HISTORY OF PRESENT ILLNESS: This is an 89-year-old female does not follow with a computer repairer and denies previous cardiac history. She does have past medical history of hypertension, dyslipidemia, hypothyroidism. We have been asked to evaluate the patient for chest pain. Patient gives history that she has had chest pain on and off on the left lower rib side for several months and is worse with exhalation. She states that yesterday she developed chills and shakes that lasted for about an hour to the point that she could not get them to stop and she was under blankets but her face felt hot. She thought maybe she was having seizures but she was awake throughout the episode. She states her legs were extremely weak all afternoon and after this episode was extremely weak. She states it was very hard for her to get off the toilet even after the shaking stopped. By the time EMS arrived the shaking had resolved. She does give history of having a cardiac catheterization in 1989 that showed no obstructive disease but small caliber a rteries. She states the chest pain is also in the lower back area as well. Blood pressure 146/110, heart rate 73, pulse ox 95% on 2 L nasal cannula. Patient is seen today in the emergency center waiting for a bed on the observation unit. -EKG: Sinus rhythm with PVCs. -Chest x-ray: Cardiomegaly with mild pulmonary vascular congestion. -Laboratory studies: WBC 12.6, hemoglobin 15.4. Troponin negative x 4 draws. Sodium 136, potassium 3.9, creatinine 0.54. Magnesium 1.5. -Home cardiac medications: Zetia 10 mg daily, Lasix 40 mg daily as needed, losartan 25 mg daily, metoprolol succinate 25 mg daily, also on levothyroxine. -Echocardiogram performed in 2020 revealed EF 50 to 55%, mild concentric LVH. Right ventricle is severely enlarged. Mild aortic sclerosis. No mitral regurgitation. Unable to estimate RVSP. -Donya scan stress test performed in 2020 revealed large area of fixed perfusion defect along the lateral wall could represent area of old infarct. No discrete reversibility seen. 11/20 Patient seen and examined. Patient denies any chest pain or pressure consistently however had a repeat episode of shaking consistent with rigors and fever as well. Echocardiogram pending. No significant shortness of breath. 11/21/2024 Patient examined this morning at bedside. Patient denies chest pain or pressure. She denies shortness of breath. She is complaining of constipation. Echocardiogram completed revealing ejection fraction 55 to 60%, no obvious regional wall motion abnormalities, mild MR, mild aortic stenosis with peak gradient 17 mmHg and mean gradient 10 mmHg, mild aortic regurgitation, mild to moderate tricuspid regurgitation. PHYSICAL EXAM: VITAL SIGNS: Reviewed. GENERAL: Well-developed in no acute distress. NECK: Supple. No JVD or thyromegaly LUNGS: Respirations even and unlabored. Lungs essentially clear to auscultation bilaterally. HEART: Regular rate and rhythm. S1 and S2 heard. EXTREMITIES: Normal range of motion. No clubbing or cyanosis. Peripheral pulses intact. No lower extremity edema ASSESSMENT: Febrile illness of unclear etiology Noncardiac chest pain, muscular skeletal in nature Acute coronary syndrome has been ruled out Hypertension Dyslipidemia Hypothyroidism PLAN: Continue current cardiac medications Patient is stable from a cardiac standpoint with no further inpatient recommendations We will sign off. Please reconsult if needed. Nurse practitioner note has been reviewed by physician. Signing provider agrees with the documented findings, assessment, and plan of care documented by ELECTRONIC SALES AND SERVICE TECHNICIAN as a scribe. Objective - Vital Signs Vital signs: Vital Signs Temp 98.1 F 11/21/24 07:00 Pulse 81 11/21/24 07:00 Resp 16 11/21/24 07:00 BP 115/68 11/21/24 07:00 Pulse Ox 97 11/21/24 08:32 FiO2 Intake & Output 11/20/24 11/21/24 11/21/24 18:59 06:59 18:59 Intake Total 240 Output Total 300 Balance 240 -300 Intake: Oral 240 Output: Urine 300 Other: Voiding Method External Catheter Bedside Commode Bedside Commode External Catheter External Catheter # Voids 3 # Bowel Movements 1 - Labs CBC & Chem 7: 11/21/24 05:03 11/21/24 05:03 Labs: Abnormal Lab Results - Last 24 Hours (Table) 11/20/24 11/21/24 11/21/24 Range/Units 05:28 05:03 05:03 WBC 13.20 H (4.50-10.00) X 10*3/uL MCHC 31.6 L (32.0-37.0) g/dL Immature Gran # 0.07 H (0.00-0.04) X 10*3/uL Neutrophils # 10.12 H (1.80-7.70) X 10*3/uL Monocytes # 1.66 H (0.20-1.00) X 10*3/uL Sodium 134 L (135-145) mmol/L Procalcitonin 1.87 H (0.02-0.50) ng/mL Microbiology - Last 24 Hours (Table) 11/20/24 14:51 Gram Stain - Preliminary Sputum 11/19/24 12:03 Urine Culture - Preliminary Urine,Voided Gram Neg Bacilli
[2024-11-22 08:07] LABS: Basophils # (A) 0.07 X 10*3/uL (0.00-0.10); Basophils % (A) 0.8 %; Eosinophils % (A) 2.4 %; HCT 41.6 % (37.2-46.3); HGB 13.7 g/dL (12.0-15.0); Lymphocytes # (A) 1.09 X 10*3/uL (0.90-5.00); Lymphocytes % (A) 13.1 %; MCH 30.7 pg (27.0-32.0); MCHC 32.9 g/dL (32.0-37.0); MCV 93.3 FL (80.0-97.0); Mean Platelet Volume 11.1 FL (9.5-12.2); Monocytes # (A) 1.13 X 10*3/uL (0.20-1.00); Monocytes % (A) 13.6 %; NRBC Per 100 WBC 0 X 10*3/uL (0.00-0.01); Neutrophils # (A) 5.77 X 10*3/uL (1.80-7.70); Neutrophils % (A) 69.6 %; Platelet Count 229 X 10*3/uL (140-440); RBC 4.46 X 10*6/uL (4.10-5.20); RDW 13.5 % (11.5-14.5)
[2024-11-22 08:26] LABS: Blood Urea Nitrogen 17.7 mg/dL (9.0-27.0); Calcium 8.8 mg/dL (8.7-10.3); Chloride 100 mmol/L (96-109); Glucose 115 mg/dL (70-110); Potassium 4.1 mmol/L (3.5-5.5); Sodium 136 mmol/L (135-145)
--- NOTE | 2024-11-22 13:55 | P.PN ---
Subjective Progress Note Date: 11/22/24 Dfto-sozk-ivp pleasant female came in complaints of left-sided chest pain pressure-like sensation 4/10 in severity dull in nature nonradiating. Patient was also complaining of shaking appears to be secondary to increased air conditioning. Patient also complaining of bruise discoloration of the hands and feet at the same time. Does not appear to be related to her chest pain. Patient has chest x-ray which was read as pulmonary congestion although because of the patient's body habitus I cannot really interpret that x-ray. Will obtain a proBNP patient denied any fever chills nausea vomiting. Patient has some questionable dysuria at the end of urinary stream will obtain a urinalysis and urine cultures patient was having cough but chest x-ray is not consistent with pneumonia. 11/20/2024 Patient is evaluated today in follow up on the medical floor. Reporting cough with sputum and usually does not wear oxygen at home. Currently requiring 3L of oxygen via nasal cannula however, could be titrated down as saturations are 96%. Patient continues to report dysuria and burning with urination. Urine culture pending and has been started on IV ceftriaxone. White blood cell count 15.40 and procalcitonin level 1.87. Echocardiogram reveals EF55-60% with mild aortic stenosis, mild to moderate TR, mild MR, mildly increased left ventricular wall thickness, RVSP 37. 11/21/2024 Patient belting follow-up with medical floor. She is reporting improvement in her shortness of breath currently saturating 97% to liters of oxygen via nasal cannula and can likely discontinue the oxygen. Her urine culture showing gram- negative bacilli and she continues on IV ceftriaxone pending final cultures. White blood cell count is improved and down to 13.20 today. Patient has been evaluated physical therapy and recommending home with home care. 11/22/2024 Patient is currently sitting in the recliner. Awake alert and oriented x 3. Still feels weak. Continues to have cough with light yellow sputum production. Chest pain with coughing and breathing out. No wheezing noted on the exam. Patient is being continued on IV ceftriaxone for E. coli urinary tract infection. Doxycycline will be added for tracheobronchitis. Leukocytosis normalized. PT OT follow-up and anticipate discharge in the next 24 hours. Review of Systems Constitutional: Denied any fatigue denied any fever. Cardio vascular: denied any chest pain, palpitations Gastrointestinal: denied any nausea, vomiting, diarrhea Pulmonary: Denied any shortness of breath cough Neurologic denied any new focal deficits All inpatient medications were reviewed and appropriate changes in these medications as dictated in the interval history and assessment and plan. PHYSICAL EXAMINATION: GENERAL: The patient is alert and oriented x3, not in any acute distress. Well developed, well nourished. HEENT: Pupils are round and equally reacting to light. EOMI. No scleral icterus. No conjunctival pallor. Normocephalic, atraumatic. No pharyngeal erythema. No thyromegaly. CARDIOVASCULAR: S1 and S2 present. No murmurs, rubs, or gallops. PULMONARY: Chest is clear to auscultation, no wheezing or crackles. ABDOMEN: Soft, nontender, nondistended, normoactive bowel sounds. No palpable organomegaly. MUSCULOSKELETAL: No joint swelling or deformity. EXTREMITIES: No cyanosis, clubbing, or pedal edema. NEUROLOGICAL: Gross neurological examination did not reveal any focal deficits. SKIN: No rashes. Assessment and plan - Acute UTI, POA - Chest pain ruled out acute coronary syndromes - Acute tracheobronchitis - Type 2 diabetes mellitus patient was resumed on home regimen - Hyperlipidemia - Hypertension - Hypothyroidism - Charcot tooth syndrome - Leukocytosis because of the UTI with elevated procalcitonin level. - History of congestive heart failure diastolic dysfunction DVT prophylaxis: Lovenox Continue IV ceftriaxone for 1 more day. Titrate oxygen. PT/OT consultation recommending home with home care. Social work on for discharge planning. Objective - Vital Signs Vital signs: Vital Signs Temp 98 F 11/22/24 13:35 Pulse 79 11/22/24 13:35 Resp 16 11/22/24 13:35 BP 143/80 11/22/24 13:35 Pulse Ox 96 11/22/24 13:35 FiO2 Intake & Output 11/21/24 11/22/24 11/22/24 18:59 06:59 18:59 Intake Total 236 118 Output Total 550 350 550 Balance -314 -350 -432 Intake: Oral 236 118 Output: Urine 550 350 550 Other: Voiding Method Bedside Commode Bedside Commode Bedside Commode External Catheter External Catheter External Catheter # Voids 2 # Bowel Movements 1 - Labs CBC & Chem 7: 11/22/24 04:32 11/22/24 04:32 Labs: Abnormal Lab Results - Last 24 Hours (Table) 11/22/24 11/22/24 Range/Units 04:32 04:32 Monocytes # 1.13 H (0.20-1.00) X 10*3/uL BUN/Creatinine Ratio 29.50 H (12.00-20.00) Ratio Glucose 115 H (70-110) mg/dL Microbiology - Last 24 Hours (Table) 11/20/24 14:51 Gram Stain - Preliminary Sputum Sputum Culture - Preliminary 11/19/24 12:03 Urine Culture - Final Urine,Voided Escherichia coli
[2024-11-22] MEDS: DOXYCYCLINE 100 MG TABLET PO SCH (14:16)
[2024-11-23 13:16] VITALS: BMI 54.0
[2024-11-23] MEDS: SODIUM CHLORIDE 0.9% 1,000 ML IV SCH (14:24)
--- NOTE | 2024-11-23 14:50 | P.GSCN ---
History of Present Illness Consult date: 11/23/24 History of present illness: CHIEF COMPLAINT: Chest pain HISTORY OF PRESENT ILLNESS: This is a 89-year-old female who presented to the hospital with complaints of chest pain. She was seen and evaluated by cardiology service. Acute coronary syndrome ruled out. She is also being treated for a UTI. Today she started to have bright and dark red bloody bowel movements with blood clots. She has had 2 episodes of bleeding today. She reports some abdominal cramping. She did have nausea earlier that improved. She does have a known history of hemorrhoids and constipation. She reports having a Cologuard test about 2 years ago which was negative. And her last colo noscopy was in 2001. She also has a large umbilical hernia. Patient reports that she was told she was not a good surgical candidate due to bleeding risks. The hernia is currently nontender. PAST MEDICAL HISTORY: Asthma, Blood Disorder, Diabetes Mellitus, Hyperlipidemia, Hypertension, Thyroid Disorder, diabetes mellitus, hyperlipidemia, hypothyroidism, osteoarthritis, congestion heart failure, umbilical hernia, Jordana Charcot tooth syndrome PAST SURGICAL HISTORY: Appendectomy, Cholecystectomy, Hysterectomy, Joint Replacement, Orthopedic Surgery, Tonsillectomy MEDICATIONS: See below ALLERGIES: See below SOCIAL HISTORY: No illicit drug use. REVIEW OF SYSTEMS: CONSTITUTIONAL: Denies fever or chills. HEENT: Denies blurred vision, vision changes, or eye pain. Denies hemoptysis CARDIOVASCULAR: Denies chest pain or pressure. RESPIRATORY: No shortness of breath. GASTROINTESTINAL: See HPI for pertinent findings HEMATOLOGIC: Denies bleeding disorders. GENITOURINARY: Denies any blood in urine or increased urinary frequency. SKIN: Denies pruitis. Denies rash. PHYSICAL EXAM: VITAL SIGNS: Reviewed GENERAL: Well-developed in no acute distress. HEENT: No sclera icterus. Extraocular movements grossly intact. Moist buccal mucosa. Head is atraumatic, normocephalic. No nasal drainage. ABDOMEN: Soft. Obese. Nondistended. Nontender. Large umbilical hernia nontender. Nonreducible NEUROLOGIC: Alert and oriented. Cranial nerves II through XII grossly intact. LABORATORY DATA: WBC 15 down to 8.30 Hgb 15.4 down to 13.7 Sodium 136 potassium 4.1 creatinine 0.6 IMAGING: ASSESSMENT: 1. Acute GI bleed with bright red blood per rectum 2. Large umbilical hernia PLAN: - Further recommendations forthcoming per surgeon regarding colonoscopy - Continue to monitor hemoglobin - Continue to monitor for any signs or symptoms of bleeding - Discontinue Lovenox. Patient apparently though has been refusing the Lovenox. Physician Health And Safety Specialist note has been reviewed by physician. Signing provider agrees with the documented findings, assessment, and plan of care. 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 Able to around by her powered wheelchair. No tobacco or alcohol use. 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 No experience. No international travel. No animal exposures. Up-to-date on her vaccines Smoking Status: Never smoker Past Alcohol Use History: None Reported Past Drug Use History: None Reported - Past Family History Daughter(s) History Unknown: Yes Father Family Medical History: Congestive Heart Failure (CHF), Diabetes Mellitus Additional Family Medical History / Comment(s): obesity Medications and Allergies Home Medications Medication Instructions Recorded Confirmed Type Metoprolol Succinate [Toprol XL] 25 mg PO DAILY 01/21/16 11/19/24 History Ketoconazole 2% Cream [Nizoral 2%] 1 applic TOPICAL BID PRN 09/15/20 11/19/24 History Losartan [Cozaar] 25 mg PO DAILY #30 tab 09/24/20 11/19/24 Rx Diclofenac Sodium Gel [Voltaren 2 gm TOPICAL QID PRN 08/01/21 11/19/24 History Gel] traMADol HCL [Ultram] 50 mg PO QID PRN 08/01/21 11/19/24 History ALPRAZolam [Xanax] 0.25 mg PO DAILY PRN 11/19/24 11/19/24 History Albuterol Nebulized [Ventolin 2.5 mg INHALATION RT-QID PRN 11/19/24 11/19/24 History Nebulized] Ergocalciferol (Vitamin D2) 1,250 mcg PO HERNANDEZ 11/19/24 11/19/24 History [Drisdol (GEQ) 1,250 MCG (50,000 IU)] Ezetimibe [Zetia] 10 mg PO DAILY 11/19/24 11/19/24 History Furosemide [Lasix] 40 mg PO DAILY PRN 11/19/24 11/19/24 History Levothyroxine Sodium [Synthroid] 150 mcg PO DAILY 11/19/24 11/19/24 History Allergies Allergy/AdvReac Type Severity Reaction Status Date / Time aspirin Allergy Unknown Verified 11/19/24 09:25 latex Allergy Unknown Verified 11/19/24 09:25 meperidine HCl [From Demerol] Allergy Rash/Hives Verified 11/19/24 09:25 morphine Allergy Unknown Verified 11/19/24 09:25 Nitrate Analogues Allergy Rash/Hives Verified 11/19/24 09:25 Sulfa (Sulfonamide Allergy Rash/Hives Verified 11/19/24 09:25 Antibiotics) tomato Allergy Rash/Hives Verified 11/19/24 09:25 codeine AdvReac Nausea Verified 11/19/24 09:25 [id number] Reductase AdvReac Nausea & Verified 11/19/24 09:25 Inhibitor Vomiting Surgical - Exam Vital Signs Temp Pulse Resp BP Pulse Ox 99.0 F 75 24 140/92 92 L 11/18/24 20:58 11/18/24 20:58 11/18/24 20:58 11/18/24 20:58 11/18/24 20:58 Results - Labs 11/22/24 04:32 11/22/24 04:32 Microbiology - Last 24 Hours (Table) 11/20/24 14:51 Gram Stain - Final Sputum Sputum Culture - Final
[2024-11-23 14:52] LABS: Basophils # (A) 0.05 10*3/uL (0.00-0.10); Basophils % (A) 0.9 %; Eosinophils # (A) 0.14 10*3/uL (0.04-0.35); Eosinophils % (A) 2.5 %; HCT 42.4 % (37.2-46.3); HGB 14.1 g/dL (12.0-15.0); Lymphocytes # (A) 1.25 10*3/uL (0.90-5.00); Lymphocytes % (A) 22.6 %; MCH 31.1 pg (27.0-32.0); MCHC 33.3 g/dL (32.0-37.0); MCV 93.6 fL (80.0-97.0); Mean Platelet Volume 10.2 fL (9.5-12.2); Monocytes # (A) 0.62 10*3/uL (0.20-1.00); Monocytes % (A) 11.2 %; Neutrophils # (A) 3.45 10*3/uL (1.80-7.70); Neutrophils % (A) 62.3 %; Platelet Count 267 10*3/uL (140-440); RBC 4.53 10*6/uL (4.10-5.20); RDW 13.2 % (11.5-14.5); WBC 5.54 10*3/uL (4.50-10.00)
[2024-11-24 07:13] LABS: Basophils # (A) 0.08 10*3/uL (0.00-0.10); Basophils % (A) 1.2 %; Eosinophils # (A) 0.28 10*3/uL (0.04-0.35); Eosinophils % (A) 4.1 %; HCT 41.3 % (37.2-46.3); HGB 13.7 g/dL (12.0-15.0); Lymphocytes # (A) 1.45 10*3/uL (0.90-5.00); MCH 31.3 pg (27.0-32.0); MCHC 33.2 g/dL (32.0-37.0); MCV 94.3 fL (80.0-97.0); Mean Platelet Volume 9.7 fL (9.5-12.2); Monocytes # (A) 0.96 10*3/uL (0.20-1.00); Monocytes % (A) 13.9 %; Neutrophils # (A) 4.11 10*3/uL (1.80-7.70); Neutrophils % (A) 59.4 %; Platelet Count 269 10*3/uL (140-440); RBC 4.38 10*6/uL (4.10-5.20); RDW 13.3 % (11.5-14.5); WBC 6.91 10*3/uL (4.50-10.00)
--- NOTE | 2024-11-24 10:21 | P.PN ---
Subjective Progress Note Date: 11/24/24 Patient jr stable. Her hemoglobin is 10.7. She has had some right bright red blood per rectum. On exam vital signs were stable. Abdomen soft. Lower GI bleed. Patient is scheduled for colonoscopy on Wednesday. Objective - Vital Signs Vital signs: Vital Signs Temp 97.6 F 11/24/24 07:00 Pulse 83 11/24/24 07:00 Resp 18 11/24/24 07:00 BP 141/80 11/24/24 07:00 Pulse Ox 94 L 11/24/24 07:00 FiO2 Intake & Output 11/23/24 11/24/24 11/24/24 18:59 06:59 18:59 Intake Total 118 Output Total 3 Balance -3 118 Weight 90.718 kg Intake: Oral 118 Output: Stool 3 Other: Voiding Method Bedside Commode Bedside Commode External Catheter External Catheter # Voids 1 3 # Bowel Movements 1 1 - Labs CBC & Chem 7: 11/24/24 07:01 11/22/24 04:32 Labs: Microbiology - Last 24 Hours (Table) 11/20/24 14:51 Gram Stain - Final Sputum Sputum Culture - Final
--- NOTE | 2024-11-24 20:49 | P.PN ---
Subjective Progress Note Date: 11/23/24 Lski-zayb-ejn pleasant female came in complaints of left-sided chest pain pressure-like sensation 4/10 in severity dull in nature nonradiating. Patient was also complaining of shaking appears to be secondary to increased air conditioning. Patient also complaining of bruise discoloration of the hands and feet at the same time. Does not appear to be related to her chest pain. Patient has chest x-ray which was read as pulmonary congestion although because of the patient's body habitus I cannot really interpret that x-ray. Will obtain a proBNP patient denied any fever chills nausea vomiting. Patient has some questionable dysuria at the end of urinary stream will obtain a urinalysis and urine cultures patient was having cough but chest x-ray is not consistent with pneumonia. 11/20/2024 Patient is evaluated today in follow up on the medical floor. Reporting cough with sputum and usually does not wear oxygen at home. Currently requiring 3L of oxygen via nasal cannula however, could be titrated down as saturations are 96%. Patient continues to report dysuria and burning with urination. Urine culture pending and has been started on IV ceftriaxone. White blood cell count 15.40 and procalcitonin level 1.87. Echocardiogram reveals EF55-60% with mild aortic stenosis, mild to moderate TR, mild MR, mildly increased left ventricular wall thickness, RVSP 37. 11/21/2024 Patient belting follow-up with medical floor. She is reporting improvement in her shortness of breath currently saturating 97% to liters of oxygen via nasal cannula and can likely discontinue the oxygen. Her urine culture showing gram- negative bacilli and she continues on IV ceftriaxone pending final cultures. White blood cell count is improved and down to 13.20 today. Patient has been evaluated physical therapy and recommending home with home care. 11/22/2024 Patient is currently sitting in the recliner. Awake alert and oriented x 3. Still feels weak. Continues to have cough with light yellow sputum production. Chest pain with coughing and breathing out. No wheezing noted on the exam. Patient is being continued on IV ceftriaxone for E. coli urinary tract infection. Doxycycline will be added for tracheobronchitis. Leukocytosis normalized. PT OT follow-up and anticipate discharge in the next 24 hours. 11/23/2024 Patient is sitting in the chair. Awake alert and oriented. No complaints of chest pain or shortness of breath. Patient states that she noticed blood clots while she was having bowel movement. No complaints of dizziness or lightheadedness. No abdominal pain. Repeat hemoglobin is stable. General surgery was consulted for further evaluation. Review of Systems Constitutional: Denied any fatigue denied any fever. Cardio vascular: denied any chest pain, palpitations Gastrointestinal: denied any nausea, vomiting, diarrhea Pulmonary: Denied any shortness of breath cough Neurologic denied any new focal deficits All inpatient medications were reviewed and appropriate changes in these medications as dictated in the interval history and assessment and plan. PHYSICAL EXAMINATION: GENERAL: The patient is alert and oriented x3, not in any acute distress. Well developed, well nourished. HEENT: Pupils are round and equally reacting to light. EOMI. No scleral icterus. No conjunctival pallor. Normocephalic, atraumatic. No pharyngeal erythema. No thyromegaly. CARDIOVASCULAR: S1 and S2 present. No murmurs, rubs, or gallops. PULMONARY: Chest is clear to auscultation, no wheezing or crackles. ABDOMEN: Soft, nontender, nondistended, normoactive bowel sounds. No palpable o rganomegaly. MUSCULOSKELETAL: No joint swelling or deformity. EXTREMITIES: No cyanosis, clubbing, or pedal edema. NEUROLOGICAL: Gross neurological examination did not reveal any focal deficits. SKIN: No rashes. Assessment and plan -Acute lower GI bleed likely hemorrhoidal. - Acute UTI, POA. Urine culture showed E. coli. - Chest pain ruled out acute coronary syndromes - Acute tracheobronchitis - Type 2 diabetes mellitus patient was resumed on home regimen - Hyperlipidemia - Hypertension - Hypothyroidism - Charcot tooth syndrome - Leukocytosis because of the UTI with elevated procalcitonin level. - History of congestive heart failure diastolic dysfunction DVT prophylaxis: Lovenox Continue IV ceftriaxone. Started on IV Protonix and IV hydration. General surgery consult. . Titrate oxygen. PT/OT consultation recommending home with home care. Social work on for discharge planning. Objective - Vital Signs Vital signs: Vital Signs Temp 97.7 F 11/23/24 07:12 Pulse 90 11/23/24 07:12 Resp 17 11/23/24 08:00 BP 131/79 11/23/24 07:12 Pulse Ox 96 11/23/24 07:12 FiO2 Intake & Output 11/22/24 11/23/24 11/23/24 18:59 06:59 18:59 Intake Total 118 Output Total 550 600 Balance -432 -600 Weight 90.718 kg Intake: Oral 118 Output: Urine 550 600 Other: Voiding Method Bedside Commode Bedside Commode External Catheter External Catheter # Voids 1 1 1 # Bowel Movements 1 1 - Labs CBC & Chem 7: 11/24/24 07:01 11/22/24 04:32 Labs: Microbiology - Last 24 Hours (Table) 11/20/24 14:51 Gram Stain - Final Sputum Sputum Culture - Final
--- NOTE | 2024-11-24 20:50 | P.PN ---
Subjective Progress Note Date: 11/24/24 Cxeh-ssey-xcn pleasant female came in complaints of left-sided chest pain pressure-like sensation 4/10 in severity dull in nature nonradiating. Patient was also complaining of shaking appears to be secondary to increased air conditioning. Patient also complaining of bruise discoloration of the hands and feet at the same time. Does not appear to be related to her chest pain. Patient has chest x-ray which was read as pulmonary congestion although because of the patient's body habitus I cannot really interpret that x-ray. Will obtain a proBNP patient denied any fever chills nausea vomiting. Patient has some questionable dysuria at the end of urinary stream will obtain a urinalysis and urine cultures patient was having cough but chest x-ray is not consistent with pneumonia. 11/20/2024 Patient is evaluated today in follow up on the medical floor. Reporting cough with sputum and usually does not wear oxygen at home. Currently requiring 3L of oxygen via nasal cannula however, could be titrated down as saturations are 96%. Patient continues to report dysuria and burning with urination. Urine culture pending and has been started on IV ceftriaxone. White blood cell count 15.40 and procalcitonin level 1.87. Echocardiogram reveals EF55-60% with mild aortic stenosis, mild to moderate TR, mild MR, mildly increased left ventricular wall thickness, RVSP 37. 11/21/2024 Patient belting follow-up with medical floor. She is reporting improvement in her shortness of breath currently saturating 97% to liters of oxygen via nasal cannula and can likely discontinue the oxygen. Her urine culture showing gram- negative bacilli and she continues on IV ceftriaxone pending final cultures. White blood cell count is improved and down to 13.20 today. Patient has been evaluated physical therapy and recommending home with home care. 11/22/2024 Patient is currently sitting in the recliner. Awake alert and oriented x 3. Still feels weak. Continues to have cough with light yellow sputum production. Chest pain with coughing and breathing out. No wheezing noted on the exam. Patient is being continued on IV ceftriaxone for E. coli urinary tract infection. Doxycycline will be added for tracheobronchitis. Leukocytosis normalized. PT OT follow-up and anticipate discharge in the next 24 hours. 11/23/2024 Patient is sitting in the chair. Awake alert and oriented. No complaints of chest pain or shortness of breath. Patient states that she noticed blood clots while she was having bowel movement. No complaints of dizziness or lightheadedness. No abdominal pain. Repeat hemoglobin is stable. General surgery was consulted for further evaluation. 11/24/2024 Patient is resting in the bed. Awake alert and oriented x 3. No complaints of chest pain or shortness of breath. No nausea vomiting abdominal pain. Patient was noted to have another bright red blood per rectum. Hemoglobin is 13.7 today. Denied any active bleeding. No diarrhea. General surgery is planning for colonoscopy on Wednesday. Review of Systems Constitutional: Denied any fatigue denied any fever. Cardio vascular: denied any chest pain, palpitations Gastrointestinal: denied any nausea, vomiting, diarrhea Pulmonary: Denied any shortness of breath cough Neurologic denied any new focal deficits All inpatient medications were reviewed and appropriate changes in these medications as dictated in the interval history and assessment and plan. PHYSICAL EXAMINATION: GENERAL: The patient is alert and oriented x3, not in any acute distress. Well developed, well nourished. HEENT: Pupils are round and equally reacting to light. EOMI. No scleral icterus. No conjunctival pallor. Normocephalic, atraumatic. No pharyngeal erythema. No thyromegaly. CARDIOVASCULAR: S1 and S2 present. No murmurs, rubs, or gallops. PULMONARY: Chest is clear to auscultation, no wheezing or crackles. ABDOMEN: Soft, nontender, nondistended, normoactive bowel sounds. No palpable organomegaly. MUSCULOSKELETAL: No joint swelling or deformity. EXTREMITIES: No cyanosis, clubbing, or pedal edema. NEUROLOGICAL: Gross neurological examination did not reveal any focal deficits. SKIN: No rashes. Assessment and plan -Acute lower GI bleed likely hemorrhoidal. - Acute UTI, POA. Urine culture showed E. coli. - Chest pain ruled out acute coronary syndromes - Acute tracheobronchitis - Type 2 diabetes mellitus patient was resumed on home regimen - Hyperlipidemia - Hypertension - Hypothyroidism - Charcot tooth syndrome - Leukocytosis because of the UTI with elevated procalcitonin level. - History of congestive heart failure diastolic dysfunction DVT prophylaxis: Lovenox Continue IV ceftriaxone. Started on IV Protonix and IV hydration. Monitor H&H. General surgery is planning for colonoscopy on Wednesday. . Titrate oxygen. PT/OT consultation recommending home with home care. Social work on for discharge planning. Objective - Vital Signs Vital signs: Vital Signs Temp 98.2 F 11/24/24 19:49 Pulse 64 11/24/24 19:49 Resp 17 11/24/24 19:49 BP 156/79 11/24/24 19:49 Pulse Ox 93 L 11/24/24 19:49 FiO2 Intake & Output 11/24/24 11/24/24 11/25/24 06:59 18:59 06:59 Intake Total 118 Output Total 3 Balance 118 -3 Intake: Oral 118 Output: Stool 3 Other: Voiding Method Bedside Commode Bedside Commode External Catheter External Catheter # Voids 3 # Bowel Movements 1 1 - Labs CBC & Chem 7: 11/24/24 07:01 11/22/24 04:32
[2024-11-25] MEDS: PEG 3350 (236 GM/BTL) + LYTES 4,000 ML BOTTLE PO ONE (08:21)
[2024-11-25 10:10] LABS: Blood Urea Nitrogen 11.2 mg/dL (9.0-27.0); Calcium 8.7 mg/dL (8.7-10.3); Carbon Dioxide 24.4 mmol/L (21.6-31.8); Chloride 104 mmol/L (96-109); Glucose 100 mg/dL (70-110); Potassium 4.4 mmol/L (3.5-5.5); Sodium 139 mmol/L (135-145)
--- NOTE | 2024-11-25 10:11 | P.PN ---
Subjective Progress Note Date: 11/25/24 The patient has had no a new lower GI bleed. Her hemoglobin stable. She is currently drinking her bowel prep. On exam vital signs appear stable. Abdomen soft. Patient scheduled for colonoscopy in the a.m. Objective - Vital Signs Vital signs: Vital Signs Temp 98.0 F 11/25/24 07:28 Pulse 74 11/25/24 07:28 Resp 17 11/25/24 07:28 BP 123/67 11/25/24 07:28 Pulse Ox 96 11/25/24 07:28 FiO2 Intake & Output 11/24/24 11/25/24 11/25/24 18:59 06:59 18:59 Output Total 3 Balance -3 Output: Stool 3 Other: Voiding Method Bedside Commode Bedside Commode Bedside Commode External Catheter External Catheter # Voids 4 1 # Bowel Movements 1 1 - Labs CBC & Chem 7: 11/24/24 07:01 11/25/24 03:40 Labs: Abnormal Lab Results - Last 24 Hours (Table) 11/25/24 Range/Units 03:40 Creatinine 0.5 L (0.6-1.5) mg/dL BUN/Creatinine Ratio 22.40 H (12.00-20.00) Ratio
[2024-11-25 10:35] LABS: Basophils # (A) 0.08 X 10*3/uL (0.00-0.10); Basophils % (A) 1.2 %; Eosinophils # (A) 0.28 X 10*3/uL (0.04-0.35); Eosinophils % (A) 4.1 %; HCT 40.5 % (37.2-46.3); HGB 13.1 g/dL (12.0-15.0); Lymphocytes # (A) 1.79 X 10*3/uL (0.90-5.00); Lymphocytes % (A) 26.2 %; MCHC 32.3 g/dL (32.0-37.0); MCV 92.7 FL (80.0-97.0); Mean Platelet Volume 10.5 FL (9.5-12.2); Monocytes # (A) 0.83 X 10*3/uL (0.20-1.00); Monocytes % (A) 12.2 %; NRBC Per 100 WBC 0 X 10*3/uL (0.00-0.01); Neutrophils # (A) 3.82 X 10*3/uL (1.80-7.70); Neutrophils % (A) 55.9 %; Platelet Count 295 X 10*3/uL (140-440); RBC 4.37 X 10*6/uL (4.10-5.20); RDW 13.3 % (11.5-14.5); WBC 6.83 X 10*3/uL (4.50-10.00)
[2024-11-25] MEDS: ZINC OXIDE PASTE (Z-GUARD) 1 APPLIC TOPICAL PRN (11:28)
[2024-11-25] MEDS: traMADol 50 MG TAB PO SCH (17:36)
[2024-11-26] MEDS ORDERED: PROPOFOL 10 MG/ML 20 ML VIAL IV ONE (08:02)
[2024-11-26] MEDS: SODIUM CHLORIDE 0.9% 500 ML 500 ML IV ONE ×2 (08:10→08:20)
--- NOTE | 2024-11-26 08:22 | P.OP ---
Date of Procedure: 11/26/24 Preoperative Diagnosis: Lower GI bleed Postoperative Diagnosis: Internal/external hemorrhoids Diverticulosis Procedure(s) Performed: Colonoscopy Anesthesia: MAC Surgeon: Carlin Das Pathology: none sent Condition: stable Disposition: PACU Description of Procedure: The patient was placed on the endoscopy table in the lateral position. She received IV sedation. Digital rectal exam performed. This revealed significant external/internal hemorrhoids. This appeared to be some bleeding from the hemo rrhoids. The flexible colonoscope was then placed patient Anaspaz throughout the entire colon. The ileocecal valve had a large amount of liquid stool which limited the view of the mucosa. The visualized right colon appeared normal. The transverse and descending colon had scattered diverticuli. The scope was Ruback the rectum this appeared normal. Scope withdrawn for the patient. And internal/external hemorrhoids were noted. Presume the patient is bleeding from internal and external hemorrhoids
--- NOTE | 2024-11-26 09:10 | P.PN ---
Subjective Progress Note Date: 11/26/24 Patient had a colonoscopy today. She is found to have bleeding from hemorrhoids. On exam vital signs stable. Abdomen soft. There is a large incarcerated umbilical hernia with small bowel just below the skin. The patient should have her incarcerated hernia repaired when she is medically stable. Objective - Vital Signs Vital signs: Vital Signs Temp 97.6 F 11/26/24 07:08 Pulse 77 11/26/24 07:08 Resp 18 11/26/24 07:08 BP 136/82 11/26/24 07:08 Pulse Ox 97 11/26/24 07:08 FiO2 Intake & Output 11/25/24 11/26/24 11/26/24 18:59 06:59 18:59 Intake Total 200 Balance 200 Intake: IV 200 Other: Voiding Method Bedside Commode Bedside Commode External Catheter # Voids 1 4 # Bowel Movements 3 6 - Labs CBC & Chem 7: 11/25/24 03:40 11/25/24 03:40 Labs: Abnormal Lab Results - Last 24 Hours (Table) 11/25/24 Range/Units 03:40 Creatinine 0.5 L (0.6-1.5) mg/dL BUN/Creatinine Ratio 22.40 H (12.00-20.00) Ratio
--- NOTE | 2024-11-26 23:18 | P.PN ---
Subjective Progress Note Date: 11/25/24 Woue-kjtl-jmf pleasant female came in complaints of left-sided chest pain pressure-like sensation 4/10 in severity dull in nature nonradiating. Patient was also complaining of shaking appears to be secondary to increased air conditioning. Patient also complaining of bruise discoloration of the hands and feet at the same time. Does not appear to be related to her chest pain. Patient has chest x-ray which was read as pulmonary congestion although because of the patient's body habitus I cannot really interpret that x-ray. Will obtain a proBNP patient denied any fever chills nausea vomiting. Patient has some questionable dysuria at the end of urinary stream will obtain a urinalysis and urine cultures patient was having cough but chest x-ray is not consistent with pneumonia. 11/20/2024 Patient is evaluated today in follow up on the medical floor. Reporting cough with sputum and usually does not wear oxygen at home. Currently requiring 3L of oxygen via nasal cannula however, could be titrated down as saturations are 96%. Patient continues to report dysuria and burning with urination. Urine culture pending and has been started on IV ceftriaxone. White blood cell count 15.40 and procalcitonin level 1.87. Echocardiogram reveals EF55-60% with mild aortic stenosis, mild to moderate TR, mild MR, mildly increased left ventricular wall thickness, RVSP 37. 11/21/2024 Patient belting follow-up with medical floor. She is reporting improvement in her shortness of breath currently saturating 97% to liters of oxygen via nasal cannula and can likely discontinue the oxygen. Her urine culture showing gram- negative bacilli and she continues on IV ceftriaxone pending final cultures. White blood cell count is improved and down to 13.20 today. Patient has been evaluated physical therapy and recommending home with home care. 11/22/2024 Patient is currently sitting in the recliner. Awake alert and oriented x 3. Still feels weak. Continues to have cough with light yellow sputum production. Chest pain with coughing and breathing out. No wheezing noted on the exam. Patient is being continued on IV ceftriaxone for E. coli urinary tract infection. Doxycycline will be added for tracheobronchitis. Leukocytosis normalized. PT OT follow-up and anticipate discharge in the next 24 hours. 11/23/2024 Patient is sitting in the chair. Awake alert and oriented. No complaints of chest pain or shortness of breath. Patient states that she noticed blood clots while she was having bowel movement. No complaints of dizziness or lightheadedness. No abdominal pain. Repeat hemoglobin is stable. General surgery was consulted for further evaluation. 11/24/2024 Patient is resting in the bed. Awake alert and oriented x 3. No complaints of chest pain or shortness of breath. No nausea vomiting abdominal pain. Patient was noted to have another bright red blood per rectum. Hemoglobin is 13.7 today. Denied any active bleeding. No diarrhea. General surgery is planning for colonoscopy on Wednesday. 11/25/2024 Patient is sitting in the chair. Awake alert and oriented x 3. Patient states that she did have bright red blood after having a bowel movement today again. Hemoglobins is stable. Patient is getting prep for colonoscopy tomorrow. Review of Systems Constitutional: Denied any fatigue denied any fever. Cardio vascular: denied any chest pain, palpitations Gastrointestinal: denied any nausea, vomiting, diarrhea Pulmonary: Denied any shortness of breath cough Neurologic denied any new focal deficits All inpatient medications were reviewed and appropriate changes in these medications as dictated in the interval history and assessment and plan. PHYSICAL EXAMINATION: GENERAL: The patient is alert and oriented x3, not in any acute distress. Well developed, well nourished. HEENT: Pupils are round and equally reacting to light. EOMI. No scleral icterus. No conjunctival pallor. Normocephalic, atraumatic. No pharyngeal erythema. No thyromegaly. CARDIOVASCULAR: S1 and S2 present. No murmurs, rubs, or gallops. PULMONARY: Chest is clear to auscultation, no wheezing or crackles. ABDOMEN: Soft, nontender, nondistended, normoactive bowel sounds. No palpable organomegaly. MUSCULOSKELETAL: No joint swelling or deformity. EXTREMITIES: No cyanosis, clubbing, or pedal edema. NEUROLOGICAL: Gross neurological examination did not reveal any focal deficits. SKIN: No rashes. Assessment and plan -Acute lower GI bleed likely hemorrhoidal. - Acute UTI, POA. Urine culture showed E. coli. - Chest pain ruled out acute coronary syndromes - Acute tracheobronchitis - Type 2 diabetes mellitus patient was resumed on home regimen - Hyperlipidemia - Hypertension - Hypothyroidism - Charcot tooth syndrome - Leukocytosis because of the UTI with elevated procalcitonin level. - History of congestive heart failure diastolic dysfunction DVT prophylaxis: Lovenox Continue IV ceftriaxone. Started on IV Protonix and IV hydration. Monitor H&H. General surgery is planning for colonoscopy tomorrow. . Titrate oxygen. PT/OT consultation recommending home with home care. Social work on for discharge planning. Objective - Vital Signs Vital signs: Vital Signs Temp 98.0 F 11/25/24 07:28 Pulse 74 11/25/24 07:28 Resp 17 11/25/24 07:28 BP 123/67 11/25/24 07:28 Pulse Ox 96 11/25/24 07:28 FiO2 Intake & Output 11/24/24 11/25/24 11/25/24 18:59 06:59 18:59 Output Total 3 Balance -3 Output: Stool 3 Other: Voiding Method Bedside Commode Bedside Commode Bedside Commode External Catheter External Catheter External Catheter # Voids 4 3 # Bowel Movements 1 3 - Labs CBC & Chem 7: 11/25/24 03:40 11/25/24 03:40 Labs: Abnormal Lab Results - Last 24 Hours (Table) 11/25/24 Range/Units 03:40 Creatinine 0.5 L (0.6-1.5) mg/dL BUN/Creatinine Ratio 22.40 H (12.00-20.00) Ratio
--- NOTE | 2024-11-26 23:20 | P.PN ---
Subjective Progress Note Date: 11/26/24 [id number] pleasant female came in complaints of left-sided chest pain pressure-like sensation 4/10 in severity dull in nature nonradiating. Patient was also complaining of shaking appears to be secondary to increased air conditioning. Patient also complaining of bruise discoloration of the hands and feet at the same time. Does not appear to be related to her chest pain. Patient has chest x-ray which was read as pulmonary congestion although because of the patient's body habitus I cannot really interpret that x-ray. Will obtain a proBNP patient denied any fever chills nausea vomiting. Patient has some questionable dysuria at the end of urinary stream will obtain a urinalysis and urine cultures patient was having cough but chest x-ray is not consistent with pneumonia. 11/20/2024 Patient is evaluated today in follow up on the medical floor. Reporting cough with sputum and usually does not wear oxygen at home. Currently requiring 3L of oxygen via nasal cannula however, could be titrated down as saturations are 96%. Patient continues to report dysuria and burning with urination. Urine culture pending and has been started on IV ceftriaxone. White blood cell count 15.40 and procalcitonin level 1.87. Echocardiogram reveals EF55-60% with mild aortic stenosis, mild to moderate TR, mild MR, mildly increased left ventricular wall thickness, RVSP 37. 11/21/2024 Patient belting follow-up with medical floor. She is reporting improvement in her shortness of breath currently saturating 97% to liters of oxygen via nasal cannula and can likely discontinue the oxygen. Her urine culture showing gram- negative bacilli and she continues on IV ceftriaxone pending final cultures. White blood cell count is improved and down to 13.20 today. Patient has been evaluated physical therapy and recommending home with home care. 11/22/2024 Patient is currently sitting in the recliner. Awake alert and oriented x 3. Still feels weak. Continues to have cough with light yellow sputum production. Chest pain with coughing and breathing out. No wheezing noted on the exam. Patient is being continued on IV ceftriaxone for E. coli urinary tract infection. Doxycycline will be added for tracheobronchitis. Leukocytosis normalized. PT OT follow-up and anticipate discharge in the next 24 hours. 11/23/2024 Patient is sitting in the chair. Awake alert and oriented. No complaints of chest pain or shortness of breath. Patient states that she noticed blood clots while she was having bowel movement. No complaints of dizziness or lightheadedness. No abdominal pain. Repeat hemoglobin is stable. General surgery was consulted for further evaluation. 11/24/2024 Patient is resting in the bed. Awake alert and oriented x 3. No complaints of chest pain or shortness of breath. No nausea vomiting abdominal pain. Patient was noted to have another bright red blood per rectum. Hemoglobin is 13.7 today. Denied any active bleeding. No diarrhea. General surgery is planning for colonoscopy on Wednesday. 11/25/2024 Patient is sitting in the chair. Awake alert and oriented x 3. Patient states that she did have bright red blood after having a bowel movement today again. Hemoglobins is stable. Patient is getting prep for colonoscopy tomorrow. 11/26/2024 Patient is status post colonoscopy today. Showed significant external/internal hemorrhoids. Some bleeding from the hemorrhoids. Scattered diverticuli. Review of Systems Constitutional: Denied any fatigue denied any fever. Cardio vascular: denied any chest pain, palpitations Gastrointestinal: denied any nausea, vomiting, diarrhea Pulmonary: Denied any shortness of breath cough Neurologic denied any new focal deficits All inpatient medications were reviewed and appropriate changes in these medications as dictated in the interval history and assessment and plan. PHYSICAL EXAMINATION: GENERAL: The patient is alert and oriented x3, not in any acute distress. Well developed, well nourished. HEENT: Pupils are round and equally reacting to light. EOMI. No scleral icterus. No conjunctival pallor. Normocephalic, atraumatic. No pharyngeal erythema. No thyromegaly. CARDIOVASCULAR: S1 and S2 present. No murmurs, rubs, or gallops. PULMONARY: Chest is clear to auscultation, no wheezing or crackles. ABDOMEN: Soft, nontender, nondistended, normoactive bowel sounds. No palpable organomegaly. MUSCULOSKELETAL: No joint swelling or deformity. EXTREMITIES: No cyanosis, clubbing, or pedal edema. NEUROLOGICAL: Gross neurological examination did not reveal any focal deficits. SKIN: No rashes. Assessment and plan -Acute lower GI bleed due to internal/external hemorrhoids.. - Acute UTI, POA. Urine culture showed E. coli. - Chest pain ruled out acute coronary syndromes - Acute tracheobronchitis - Type 2 diabetes mellitus patient was resumed on home regimen - Hyperlipidemia - Hypertension - Hypothyroidism - Charcot tooth syndrome - Leukocytosis because of the UTI with elevated procalcitonin level. - History of congestive heart failure diastolic dysfunction DVT prophylaxis: Lovenox Continue IV ceftriaxone. Started on IV Protonix and IV hydration. Monitor H&H. Status post colonoscopy today. . Titrate oxygen. PT/OT consultation recommending home with home care. Social work on for discharge planning. Anticipate discharge in the next 24 hours. Objective - Vital Signs Vital signs: Vital Signs Temp 98.2 F 11/26/24 14:29 Pulse 78 11/26/24 14:29 Resp 18 11/26/24 14:29 BP 114/61 11/26/24 14:29 Pulse Ox 95 11/26/24 14:29 FiO2 Intake & Output 11/25/24 11/26/24 11/26/24 18:59 06:59 18:59 Intake Total 200 Balance 200 Intake: IV 200 Other: Voiding Method Bedside Commode Bedside Commode External Catheter # Voids 1 4 4 # Bowel Movements 3 6 1 - Labs CBC & Chem 7: 11/25/24 03:40 11/25/24 03:40
[2024-11-27 02:05] VITALS: RESP 18
[2024-11-27 05:41] VITALS: BP 144/84; PULSE 71; TEMP 97.4
[2024-11-27 10:17] LABS: Basophils # (A) 0.11 X 10*3/uL (0.00-0.10); Basophils % (A) 1.5 %; Eosinophils # (A) 0.27 X 10*3/uL (0.04-0.35); Eosinophils % (A) 3.7 %; HCT 41.6 % (37.2-46.3); HGB 13.4 g/dL (12.0-15.0); Lymphocytes # (A) 2.14 X 10*3/uL (0.90-5.00); Lymphocytes % (A) 29.2 %; MCH 30.5 pg (27.0-32.0); MCHC 32.2 g/dL (32.0-37.0); MCV 94.5 FL (80.0-97.0); Mean Platelet Volume 10.1 FL (9.5-12.2); Monocytes # (A) 0.66 X 10*3/uL (0.20-1.00); NRBC Per 100 WBC 0 X 10*3/uL (0.00-0.01); Neutrophils # (A) 4.08 X 10*3/uL (1.80-7.70); Neutrophils % (A) 55.6 %; Platelet Count 374 X 10*3/uL (140-440); RDW 13.4 % (11.5-14.5); WBC 7.33 X 10*3/uL (4.50-10.00)
[2024-11-27 10:30] LABS: BUN/Creat Ratio 20.83 Ratio (12.00-20.00); Blood Urea Nitrogen 12.5 mg/dL (9.0-27.0); Calcium 9.1 mg/dL (8.7-10.3); Carbon Dioxide 25.4 mmol/L (21.6-31.8); Chloride 104 mmol/L (96-109); Glucose 103 mg/dL (70-110); Potassium 4.5 mmol/L (3.5-5.5); Sodium 139 mmol/L (135-145)
--- NOTE | 2024-11-27 12:34 | P.PN ---
Subjective Progress Note Date: 11/27/24 SURGICAL PROGRESS NOTE CHIEF COMPLAINT: GI bleed HISTORY OF PRESENT ILLNESS: Patient is status post colonoscopy revealing external/internal hemorrhoids. Presumed bleeding from hemorrhoids. Patient did pass 1 blood clot yesterday. But since then has had no further bowel movements. And no further blood from rectum. She reports decrease in her rectal pain. PHYSICAL EXAM: VITAL SIGNS: Reviewed. GENERAL: Well-developed in no acute distress. ABDOMEN: Soft. Nondistended. Large incarcerated umbilical hernia with small bowel just below skin NEUROLOGIC: Alert and oriented. Cranial nerves II through XII grossly intact. ASSESSMENT: 1. GI bleed with bright red blood per rectum likely due to bleeding from external and internal hemorrhoids. Bleeding showing improvement. Hemoglobin stable 13.4. 2. Large incarcerated umbilical hernia PLAN: -Recommend repair of incarcerated umbilical hernia when medically stable -Patient can be discharged from surgical standpoint when medically cleared Physician Construction Producer note has been reviewed by physician. Signing provider agrees with the documented findings, assessment, and plan of care. Objective - Vital Signs Vital signs: Vital Signs Temp 97.4 F L 11/27/24 05:40 Pulse 71 11/27/24 05:40 Resp 18 11/27/24 05:40 BP 144/84 11/27/24 05:40 Pulse Ox 97 11/27/24 05:40 FiO2 Intake & Output 11/26/24 11/27/24 11/27/24 18:59 06:59 18:59 Intake Total 200 118 Output Total 800 700 Balance 200 -800 -582 Intake: IV 200 Oral 118 Output: Urine 800 700 Other: Voiding Method Bedside Commode Bedside Commode # Voids 4 2 800 # Bowel Movements 1 - Labs CBC & Chem 7: 11/27/24 05:39 11/27/24 05:39 Labs: Abnormal Lab Results - Last 24 Hours (Table) 11/27/24 11/27/24 Range/Units 05:39 05:39 Immature Gran # 0.07 H (0.00-0.04) X 10*3/uL Basophils # 0.11 H (0.00-0.10) X 10*3/uL BUN/Creatinine Ratio 20.83 H (12.00-20.00) Ratio
--- NOTE | 2024-11-29 16:36 | P.DS ---
Providers Date of admission: 11/18/24 22:39 Attending physician: Jj Arita Consults: 11/23/24 13:53 Consult Physician Routine Consulting Provider: Carlin Das Consult Reason/Comments: gi bleed Do you want consulting provider notified?: Yes Primary care physician: Brock Molina Hospital Course: Final Diagnosis - Acute lower GI bleed due to internal/external hemorrhoids.. - Acute UTI, POA. Urine culture showed E. coli. - Chest pain ruled out acute coronary syndromes - Acute tracheobronchitis - Type 2 diabetes mellitus patient was resumed on home regimen - Hyperlipidemia - Hypertension - Hypothyroidism - Charcot tooth syndrome - Leukocytosis because of the UTI with elevated procalcitonin level. - History of congestive heart failure diastolic dysfunction Discharge Disposition Patient stable for discharge home. Her cough is significantly improved. She completed a course of IV ceftriaxone for the acute urinary tract infection while in the hospital. Rectal bleeding has improved. Patient to follow-up closely with her PCP Dr. Brock Molina recommending to make an appointment for 1 to 2 days postdischarge. Repeat a BMP and CBC in 2 to 3 days. Patient to follow-up closely with cardiology and general surgery on discharge as well. Total time taken in discharge planning greater than 35 minutes. Hospital Course This is a 89-year-old female who came in with complaints of left-sided chest pain pressure-like sensation 4 out of 10 in severity which was dull in nature and nonradiating. She was also complaining of some shaking which was more attributed to her chills because of her air conditioning. She was complaining of a bruise discoloration of the hands and feet at the same time. This did not appear to be related to her chest pain. On admission she had a chest x-ray completed which read as pulmonary congestion. Patient was also complaining of cough with sputum production does not usually wear oxygen at home however was requiring 3 L of oxygen via nasal cannula. This was titrated off and down she was complaining of some dysuria and burning with urination. She was started on IV ceftriaxone. White blood cell count 15.40 and procalcitonin level 1.87. Echocardiogram reveals EF55-60% with mild aortic stenosis, mild to moderate TR, mild MR, mildly increased left ventricular wall thickness, RVSP 37. Patient continued to report cough with sputum production was not having any wheezing noted on exam however because of the cough doxycycline was added for suspected tracheobronchitis. Her urine culture came back revealing a E. coli which was sensitive to ceftriaxone. Clinically patient improved and she has completed all course of antibiotics while in the hospital. Her cough is significantly improved as well. Her hospital stay was complicated due to rectal bleeding patient was evaluated general surgery and underwent colonoscopy secondary to lower GI bleed which reveals internal and external hemorrhoids. Patient does state that she has a history of diverticulosis as well as hemorrhoids and she does follow a diet for this and is on stool softeners chronically. Her bowels are now normal and she has no further evidence of rectal bleeding. She also underwent barium swallow which reveals mild to moderate muscle hypertrophy/spasm otherwise a normal study with no signs of aspiration. Patient was cleared for discharge home. She will continue all same home medications and follow-up with Review of Systems Constitutional: Denied any fatigue denied any fever. Cardio vascular: denied any chest pain, palpitations Gastrointestinal: denied any nausea, vomiting, diarrhea Pulmonary: Denied any shortness of breath cough Neurologic denied any new focal deficits All inpatient medications were reviewed and appropriate changes in these medications as dictated in the interval history and assessment and plan. PHYSICAL EXAMINATION: GENERAL: The patient is alert and oriented x3, not in any acute distress. Well developed, well nourished. HEENT: Pupils are round and equally reacting to light. EOMI. No scleral icterus. No conjunctival pallor. Normocephalic, atraumatic. No pharyngeal erythema. No thyromegaly. CARDIOVASCULAR: S1 and S2 present. No murmurs, rubs, or gallops. PULMONARY: Chest is clear to auscultation, no wheezing or crackles. ABDOMEN: Soft, nontender, nondistended, normoactive bowel sounds. No palpable organomegaly. MUSCULOSKELETAL: No joint swelling or deformity. EXTREMITIES: No cyanosis, clubbing, or pedal edema. NEUROLOGICAL: Gross neurological examination did not reveal any focal deficits. SKIN: No rashes. Please see medication reconciliation for a list of current medications. Thank you for allowing us to participate in the care of this patient. The impression and plan of care has been dictated by Niru Franks Nurse Practitioner as directed. Dr. Fidel MD I have performed a history and physical examination and medical decision making of this patient, discussed the same with the dictator, and agree with the dictators assessment and plan as written, documented as a scribe. Based on total visit time, I have performed more than 50% of this visit. Patient Condition at Discharge: Good Plan - Discharge Summary New Discharge Prescriptions: Continue Metoprolol Succinate [Toprol XL] 25 mg PO DAILY Ketoconazole 2% Cream [Nizoral 2%] 1 applic TOPICAL BID PRN PRN Reason: Rash Losartan [Cozaar] 25 mg PO DAILY #30 tab Diclofenac Sodium Gel [Voltaren 1% Gel] 2 gm TOPICAL QID PRN PRN Reason: RIGHT HAND PAIN traMADol HCL [Ultram] 50 mg PO QID PRN PRN Reason: Pain Albuterol Nebulized [Ventolin Nebulized] 2.5 mg INHALATION RT-QID PRN PRN Reason: Shortness Of Breath ALPRAZolam [Xanax] 0.25 mg PO DAILY PRN PRN Reason: Anxiety Ergocalciferol (Vitamin D2) [Drisdol (GEQ) 1,250 MCG (50,000 IU)] 1,250 mcg PO HERNANDEZ Levothyroxine Sodium [Synthroid] 150 mcg PO DAILY Furosemide [Lasix] 40 mg PO DAILY PRN PRN Reason: Edema Ezetimibe [Zetia] 10 mg PO DAILY Discharge Medication List Metoprolol Succinate [Toprol XL] 25 mg PO DAILY 01/21/16 [History] Ketoconazole 2% Cream [Nizoral 2%] 1 applic TOPICAL BID PRN 09/15/20 [History] Losartan [Cozaar] 25 mg PO DAILY #30 tab 09/24/20 [Rx] Diclofenac Sodium Gel [Voltaren 1% Gel] 2 gm TOPICAL QID PRN 08/01/21 [History] traMADol HCL [Ultram] 50 mg PO QID PRN 08/01/21 [History] ALPRAZolam [Xanax] 0.25 mg PO DAILY PRN 11/19/24 [History] Albuterol Nebulized [Ventolin Nebulized] 2.5 mg INHALATION RT-QID PRN 11/19/24 [History] Ergocalciferol (Vitamin D2) [Drisdol (GEQ) 1,250 MCG (50,000 IU)] 1,250 mcg PO HERNANDEZ 11/19/24 [History] Ezetimibe [Zetia] 10 mg PO DAILY 11/19/24 [History] Furosemide [Lasix] 40 mg PO DAILY PRN 11/19/24 [History] Levothyroxine Sodium [Synthroid] 150 mcg PO DAILY 11/19/24 [History] Follow up Appointment(s)/Referral(s): Brock Molina MD [Primary Care Provider] - 1-2 days Doug Khan MD [STAFF PHYSICIAN] - 2 Weeks (office will call patient with appointment ) Carlin Das MD [STAFF PHYSICIAN] - 12/05/24 1:10 pm (Follow up to discuss incarcerated hernia repair ) Ambulatory/Diagnostic Orders: Basic Metabolic Panel [LAB.AMB] Location: None Selected Complete Blood Count w/diff [LAB.AMB] Time Frame: 3 Days, Location: None Selected Patient Instructions/Handouts: Diverticulitis Diet (DC) Activity/Diet/Wound Care/Special Instructions: Monitor for rectal bleeding Repeat labs 2 to 3 days Discharge Disposition: HOME SELF-CARE
== END 2024-11-27 15:47 | disposition home or self-care (01) | DRG 690 ==
LOC: EC 20:57 → 6NMEDSUR 22:38 → OBSVTOIN 22:39 → 6NMEDSUR 11-19 13:46
PROVIDERS: ADMIT Hospitalist; ATTEND Hospitalist
PROC: 0DJD8ZZ Inspection of Lower Intestinal Tract, Via Natural or Artificial Opening Endoscopic (ICD-10-PCS; principal; 2024-11-26 08:00)
DX: N39.0 Urinary tract infection, site not specified (principal); I50.32 Chronic diastolic (congestive) heart failure; K42.0 Umbilical hernia with obstruction, without gangrene; I11.0 Hypertensive heart disease with heart failure; B96.20 Unspecified Escherichia coli [E. coli] as the cause of diseases classified elsewhere; E11.9 Type 2 diabetes mellitus without complications; E78.5 Hyperlipidemia, unspecified; E03.9 Hypothyroidism, unspecified; J45.909 Unspecified asthma, uncomplicated; I70.0 Atherosclerosis of aorta; I35.0 Nonrheumatic aortic (valve) stenosis; K62.5 Hemorrhage of anus and rectum; Z11.52 Encounter for screening for COVID-19; Z79.890 Hormone replacement therapy; G60.0 Hereditary motor and sensory neuropathy; J20.9 Acute bronchitis, unspecified; K42.9 Umbilical hernia without obstruction or gangrene; I49.3 Ventricular premature depolarization; K64.4 Residual hemorrhoidal skin tags; R07.89 Other chest pain; K57.30 Diverticulosis of large intestine without perforation or abscess without bleeding; Z79.899 Other long term (current) drug therapy; K64.8 Other hemorrhoids; Z82.49 Family history of ischemic heart disease and other diseases of the circulatory system; Z96.641 Presence of right artificial hip joint; Z87.19 Personal history of other diseases of the digestive system; Z90.49 Acquired absence of other specified parts of digestive tract; Z90.710 Acquired absence of both cervix and uterus; Z88.5 Allergy status to narcotic agent; Z88.6 Allergy status to analgesic agent; Z88.8 Allergy status to other drugs, medicaments and biological substances; Z88.2 Allergy status to sulfonamides; Z91.040 Latex allergy status; Z86.14 Personal history of Methicillin resistant Staphylococcus aureus infection; Z91.018 Allergy to other foods
CPT/HCPCS: 36415; 45378; 71046; 74230; 80048; 80053; 81001; 83735; 83880; 84145; 84484; 85025; 85027; 85610; 85730; 87070; 87077; 87086; 87186; 87205; 87636; 93005; 93306; 94760; 96365; 99285